=== PATIENT | male | born 1945 | race African-American/Black ===

== ENCOUNTER → 2016-04-15 | Outpatient (CLI) | payer MEDICARE, MEDICAID ==
[2016-04-15 11:21] LABS: ABSOLUTE BASOPHILS # (AUTO) 0.1 10^3/uL (0.0-0.2); ABSOLUTE EOSINOPHILS # (AUTO) 0.4 10^3/uL (0.0-0.6); ABSOLUTE LYMPHOCYTES (AUTO) 1.9 10^3/uL (0.5-4.7); ABSOLUTE MONOCYTES (AUTO) 0.4 10^3/uL (0.1-1.4); ABSOLUTE NEUT (AUTO) 3.4 10^3/uL (1.7-8.2); BASOPHILS % (AUTO) 1.2 % (0-2); EOSINOPHILS % (AUTO) 6.5 % (0-6); HEMATOCRIT 37.8 % (37.9-51.0); HEMOGLOBIN 12.3 g/dL (13.5-17.0); HGB HCT DIFFERENCE -0.9; LYMPHOCYTES % (AUTO) 30.8 % (13-45); MEAN CORPUSCULAR HEMOGLOBIN 22.9 pg (27.0-33.4); MEAN CORPUSCULAR HGB CONC 32.5 g/dL (32.0-36.0); MEAN CORPUSCULAR VOLUME 70 fl (80-97); MONOCYTES % (AUTO) 6.9 % (3-13); RED BLOOD COUNT 5.37 10^6/uL (4.35-5.55); RED CELL DISTRIBUTION WIDTH 15.9 % (11.5-14.0); SEGMENTED NEUTROPHILS % (AUTO) 54.6 % (42-78); WHITE BLOOD COUNT 6.2 10^3/uL (4.0-10.5)
[2016-04-15 11:45] LABS: ALANINE AMINOTRANSFERASE 43 U/L (21-72); ALBUMIN 4.2 g/dL (3.5-5.0); ALKALINE PHOSPHATASE 119 U/L (38-126); ANION GAP 14 (5-19); ASPARTATE AMINO TRANSFERASE 17 U/L (17-59); BILIRUBIN,TOTAL 0.2 mg/dL (0.2-1.3); BLOOD UREA NITROGEN 15 mg/dL (7-20); CARBON DIOXIDE 27 mmol/L (22-30); CHLORIDE 102 mmol/L (98-107); CREATININE RESULT 1.26 mg/dL (0.52-1.25); GLUCOSE 102 mg/dL (75-110); POTASSIUM 4.2 mmol/L (3.6-5.0); SODIUM 143.3 mmol/L (137-145); TOTAL PROTEIN 6.9 g/dL (6.3-8.2)
== END ==
LOC: OD 09:55
PROVIDERS: ATTEND Psychiatry & Neurology Psychiatry
DX: F25.9 Schizoaffective disorder, unspecified (principal)
CPT/HCPCS: 36415; 80053; 85025

== ENCOUNTER → 2016-04-19 | Outpatient (CLI) | payer MEDICARE, MEDICAID ==
[2016-04-19 11:32] LABS: CHOLESTEROL 147.29 mg/dL (0-200); Direct HDL 36 mg/dL (>40); TRIGLYCERIDES 112 mg/dL (<150)
[2016-04-19 11:42] LABS: DIRECT LDL 81 mg/dL (<100)
== END ==
LOC: OD 10:13
PROVIDERS: ATTEND Psychiatry & Neurology Psychiatry
DX: F25.9 Schizoaffective disorder, unspecified (principal); Z79.899 Other long term (current) drug therapy
CPT/HCPCS: 36415; 80061

== ENCOUNTER 2016-04-26 12:14 | Emergency (ER) | payer MEDICARE, MEDICAID ==
--- NOTE | 2016-04-26 12:28 | ER Document Report ---
ED Medical Screen (RME) - General Stated Complaint: FALL/MOUTH LACERATION Mode of Arrival: Ambulatory Information source: Transfer Record Notes: Patient tripped in the parking lot falling hitting his face on the pavement. No loss of consciousness, no nausea or vomiting. Pt with lac to upper inside lip. I have greeted and performed a rapid initial assessment of this patient. A comprehensive ED assessment and evaluation of the patient, analysis of test results and completion of the medical decision making process will be conducted by additional ED providers. TRAVEL OUTSIDE OF THE [place] IN LAST 30 DAYS: No - Related Data Allergies/Adverse Reactions: No Known Allergies Allergy (Verified 04/26/16 12:25) Past Medical History - Past Medical History Cardiac Medical History: Reports: Hx Hypercholesterolemia, Hx Hypertension Comment Only: Hx Atrial Fibrillation - IRREGULAR HEARTBEAT Pulmonary Medical History: Reports: Hx COPD Denies: Hx Tuberculosis - unknown Endocrine Medical History: Reports: Hx Diabetes Mellitus Type 1, Hx Diabetes Mellitus Type 2 Renal/ Medical History: Reports: Hx Benign Prostatic Hyperplasia GI Medical History: Reports: Hx Gastroesophageal Reflux Disease Psychiatric Medical History: Reports: Hx Anxiety, Hx Depression, Hx Personality Disorder - Dependent personality disorder, Hx Schizoaffective Disorder, Hx Schizophrenia - SCHIZOEFFECTIVE Past Surgical History: Reports: Hx Cardiac Surgery - OPEN HEART - Immunizations Immunizations up to date: Yes Hx Diphtheria, Pertussis, Tetanus Vaccination: Yes Physical Exam - Vital signs Vitals: Pulse Resp BP Pulse Ox 91 22 H 135/86 H 98 04/26/16 12:24 04/26/16 12:24 04/26/16 12:24 04/26/16 12:24 - Skin Skin irregularity: Laceration - Inside upper lip Course - Vital Signs Vital signs: Temp Pulse Resp BP Pulse Ox 91 22 H 135/86 H 98 04/26/16 12:24 04/26/16 12:24 04/26/16 12:24 04/26/16 12:24
[2016-04-26] MEDS ORDERED: LIDOCAINE 1% INJ-PF (10 MG/ML) 30 ML SDV INJ ONE (15:11)
--- NOTE | 2016-04-26 16:12 | ER Document Report ---
ED Oral Problem - General Chief Complaint: Lip Injury Stated Complaint: FALL/MOUTH LACERATION Mode of Arrival: Ambulatory Notes: Patient apparently lost his footing and slipped and fell hitting his face in a driveway. He is a resident of a longterm with a diagnosis of schizophrenia. Staff who are here with him say that he was just recently started on a new medication which seems to make him drowsy and less stable than usual on his feet. Patient did not have any loss of consciousness and no new neurologic deficits. Patient is bleeding rather heavily from an apparent cut inside his upper lip. No other apparent injuries. Patient is not able to help provide history. He follows some commands appropriately, but doesn't answer questions intelligibly. TRAVEL OUTSIDE OF THE [place] IN LAST 30 DAYS: No - Related Data Allergies/Adverse Reactions: No Known Allergies Allergy (Verified 04/26/16 12:25) Past Medical History - General Information source: Transfer Record - Social History Smoking Status: Unknown if Ever Smoked Chew tobacco use (# tins/day): No Frequency of alcohol use: None Drug Abuse: None Family History: Reviewed & Not Pertinent Patient has suicidal ideation: No Patient has homicidal ideation: No - Past Medical History Cardiac Medical History: Reports: Hx Hypercholesterolemia, Hx Hypertension Comment Only: Hx Atrial Fibrillation - IRREGULAR HEARTBEAT Pulmonary Medical History: Reports: Hx COPD Denies: Hx Tuberculosis - unknown Endocrine Medical History: Reports: Hx Diabetes Mellitus Type 1, Hx Diabetes Mellitus Type 2 Renal/ Medical History: Reports: Hx Benign Prostatic Hyperplasia GI Medical History: Reports: Hx Gastroesophageal Reflux Disease Psychiatric Medical History: Reports: Hx Anxiety, Hx Depression, Hx Personality Disorder - Dependent personality disorder, Hx Schizoaffective Disorder, Hx Schizophrenia - SCHIZOEFFECTIVE Past Surgical History: Reports: Hx Cardiac Surgery - OPEN HEART - Immunizations Immunizations up to date: Yes Hx Diphtheria, Pertussis, Tetanus Vaccination: Yes Hx Pneumococcal Vaccination: 07/25/12 Review of Systems - Review of Systems -: Yes ROS unobtainable due to patient's medical condition - Patient's verbal skills are not sufficient to provide answers to questions Physical Exam - Vital signs Vitals: Pulse Resp BP Pulse Ox 91 22 H 135/86 H 98 04/26/16 12:24 04/26/16 12:24 04/26/16 12:24 04/26/16 12:24 Interpretation: Normal - Notes Notes: PHYSICAL EXAMINATION: GENERAL: Bleeding rather heavily from his mouth. Vital signs are normal.. HEAD: Atraumatic, normocephalic. ENT: Blood in the oral cavity. Cleaned out as much blood as I could digitally, using 4 x 4 swabs. I was able to find about a 3 cm laceration of the upper medial right lip. This laceration was bleeding rather briskly and appeared to account for all the blood that the patient has been bleeding into his mouth. No other site seen. Pressure was applied while suture tray was set up. Patient is totally edentulous. He has some soft tissue swelling of the right upper lip with some bruising there as well and there possibly could be a hematoma present. He has some superficial abrasions over the external right upper lip, none of which require sutures. NECK: Normal range of motion, supple. LUNGS: Breath sounds clear and equal bilaterally. HEART: Regular rate and rhythm without murmurs. ABDOMEN: Soft, nontender. No guarding or rebound. BACK: No tenderness throughout entire back. EXTREMITIES: Normal range of motion without pain. NEUROLOGICAL: Patient is essentially noncommunicative. I cannot understand anything he says in answer to my questions. Staff does seem to understand some of what he is saying. He does follow commands relatively well. Moving all 4 extremities and does not appear to have any gross neurologic deficits other than his mental status which is due to his psychiatric illness. SKIN: Warm, dry, no rashes. Course - Vital Signs Vital signs: Temp Pulse Resp BP Pulse Ox 97.3 F 96 16 135/93 H 98 04/26/16 17:08 04/26/16 17:08 04/26/16 17:08 04/26/16 17:08 04/26/16 17:08 - Diagnostic Test Radiology reviewed: Image reviewed, Reports reviewed - CT cervical spine report : No gross acute fracture or malalignment. Multilevel significant central and foraminal stenosis Procedures - Laceration/Wound Repair right upper lip Wound length (cm): 3 Wound's Depth, Shape: Into muscle - I don't see any direct evidence that the patient's wound enters to muscle, but in its location, it would not surprise me that there might be some involvement of the orbicularis muscle., Irregular, Contused tissue. No: Flap Laceration pre-procedure: Sterile drapes applied Anesthetic type: 2% Lidocaine Volume Anesthetic (mLs): 4 Wound explored: Clean, No foreign body removed Irrigated w/ Saline (mLs): 200 Wound Debrided: none Suture Size/Type: Vicryl, 4:0 Number of Sutures: 10 Layer Closure?: No Complications: No Notes: 04/26/16 19:31 After being sutured, there was good hemostasis with no active bleeding observed from any portion of the wound. Adult Head Front/Back picture: 1 - Laceration is of the underside of the right upper lip under the right nostril. I do not think it is a through and through laceration. Closed with multiple (10) 4-0 Vicryl sutures Discharge - Discharge Clinical Impression: Laceration of upper lip, complicated Qualifiers: Encounter type: initial encounter Qualified Code(s): S01.511A - Laceration without foreign body of lip, initial encounter Condition: Stable Disposition: HOME, SELF-CARE Additional Instructions: LACERATION CARE: Your laceration has been sutured to keep the skin edges aligned during healing. Please follow the care instructions the doctor has outlined for you and return for further care, according to the schedule you've been given. Keep the wound and dressing clean. Unless you were told otherwise, you may shower daily, blotting the wound dry with a clean, unused towel. At other times, If the dressing gets wet or blood soaked, remove it and blot the wound dry, then reapply a new dressing. Unless you were instructed otherwise, dressings should be changed at least daily. If any signs of infection occur (swelling, redness, drainage, increasing tenderness, red streaks, tender lumps in the armpit or groin above the laceration, or fever), see the doctor immediately. FOLLOW-UP CARE: Your sutures are dissolvable (4-0 Vicryl) so you do not need to return for suture removal. If you have been referred to another physician for follow-up care, call that physicians office for an appointment as you were instructed. If you experience a significant change in your laceration, or if you are concerned there may be an infection (swelling, redness, drainage, increasing tenderness, red streaks, tender lumps in the armpit or groin above the laceration, or fever) , return to the Emergency Department immediately re-evaluation. Watch for signs of infection such as redness, pus drainage, swelling worse than it is now, etc. Return at any time if you're concerned it may be infected. Try to rinse your mouth out with warm water after eating and at bedtime. Try to limit food intake for the next couple days to very soft foods such as soups and ice cream, etc. Referrals: CHARLENE ANDERSON MD [Primary Care Provider] - Follow up as needed
[2016-04-26 17:10] VITALS: BP 135/93
== END 2016-04-26 16:35 | disposition home or self-care (01) ==
LOC: ER 12:14
PROC: 0CQ0XZZ Repair Upper Lip, External Approach (ICD-10-PCS; principal; 2016-04-26)
DX: S01.511A Laceration without foreign body of lip, initial encounter (principal); W19.XXXA Unspecified fall, initial encounter; E78.00 Pure hypercholesterolemia, unspecified
CPT/HCPCS: 99283; 72125; 12013; J3490

== ENCOUNTER → 2016-05-06 | Outpatient (CLI) | payer MEDICARE, MEDICAID ==
[2016-05-06 10:49] LABS: ANION GAP 16 (5-19); BLOOD UREA NITROGEN 17 mg/dL (7-20); CALCIUM 9.1 mg/dL (8.4-10.2); CARBON DIOXIDE 26 mmol/L (22-30); CHLORIDE 102 mmol/L (98-107); CREATININE RESULT 1.17 mg/dL (0.52-1.25); GLUCOSE 107 mg/dL (75-110); POTASSIUM 4.5 mmol/L (3.6-5.0); SODIUM 143.5 mmol/L (137-145)
== END ==
LOC: OD 09:47
PROVIDERS: ATTEND Internal Medicine Nephrology
DX: I10 Essential (primary) hypertension (principal)
CPT/HCPCS: 36415; 80048

== ENCOUNTER → 2016-07-21 | Outpatient (CLI) | payer MEDICARE, MEDICAID | LOC: OD 10:45 | PROVIDERS: ATTEND Urology | DX: R97.20 Elevated prostate specific antigen [PSA] (principal) | CPT/HCPCS: 36415; 84153 ==

== ENCOUNTER 2016-12-14 10:01 | Inpatient (IN) | payer MEDICARE, MEDICAID ==
--- NOTE | 2016-12-14 10:16 | ER Document Report ---
ED Medical Screen (RME) - General Chief Complaint: Altered Mental Status Stated Complaint: ALTERED MENTAL STATUS Time Seen by Provider: 12/14/16 10:13 Notes: Patient is a resident of an extended care facility. He has brought in by staff. Staff states that for the last 24 hours or so patient has been weak and sleeping more than usual. He is also been less talkative. He has been less active. No vomiting or diarrhea. No known fevers. They have noticed that his blood pressure has been lower than normal as well. They also noticed that he has been off balance. TRAVEL OUTSIDE OF THE [place] IN LAST 30 DAYS: No - Related Data Allergies/Adverse Reactions: No Known Allergies Allergy (Verified 12/14/16 10:03) Past Medical History - Past Medical History Cardiac Medical History: Reports: Hx Hypercholesterolemia, Hx Hypertension Comment Only: Hx Atrial Fibrillation - IRREGULAR HEARTBEAT Pulmonary Medical History: Reports: Hx COPD Denies: Hx Tuberculosis - unknown Endocrine Medical History: Reports: Hx Diabetes Mellitus Type 1, Hx Diabetes Mellitus Type 2 Renal/ Medical History: Reports: Hx Benign Prostatic Hyperplasia. Denies: Hx Peritoneal Dialysis GI Medical History: Reports: Hx Gastroesophageal Reflux Disease Psychiatric Medical History: Reports: Hx Anxiety, Hx Depression, Hx Personality Disorder - Dependent personality disorder, Hx Schizoaffective Disorder, Hx Schizophrenia - SCHIZOEFFECTIVE Past Surgical History: Reports: Hx Cardiac Surgery - OPEN HEART - Immunizations Immunizations up to date: Yes Hx Diphtheria, Pertussis, Tetanus Vaccination: Yes Physical Exam - Vital signs Vitals: Temp Pulse Resp BP Pulse Ox 98.5 F 97 20 106/70 93 12/14/16 10:04 12/14/16 10:04 12/14/16 10:04 12/14/16 10:04 12/14/16 10:04 Course - Vital Signs Vital signs: Temp Pulse Resp BP Pulse Ox 98.5 F 97 20 106/70 93 12/14/16 10:04 12/14/16 10:04 12/14/16 10:04 12/14/16 10:04 12/14/16 10:04
[2016-12-14 10:35] LABS: ABSOLUTE EOSINOPHILS # (AUTO) 0.3 10^3/uL (0.0-0.6); ABSOLUTE LYMPHOCYTES (AUTO) 1.1 10^3/uL (0.5-4.7); ABSOLUTE MONOCYTES (AUTO) 0.4 10^3/uL (0.1-1.4); ABSOLUTE NEUT (AUTO) 3.2 10^3/uL (1.7-8.2); BASOPHILS % (AUTO) 0.5 % (0-2); EOSINOPHILS % (AUTO) 5.4 % (0-6); HEMATOCRIT 34.4 % (37.9-51.0); HEMOGLOBIN 11.4 g/dL (13.5-17.0); HGB HCT DIFFERENCE -0.2; LYMPHOCYTES % (AUTO) 22.1 % (13-45); MEAN CORPUSCULAR HEMOGLOBIN 23.3 pg (27.0-33.4); MEAN CORPUSCULAR HGB CONC 33.1 g/dL (32.0-36.0); MEAN CORPUSCULAR VOLUME 70 fl (80-97); MONOCYTES % (AUTO) 8.3 % (3-13); RED BLOOD COUNT 4.88 10^6/uL (4.35-5.55); RED CELL DISTRIBUTION WIDTH 15.3 % (11.5-14.0); SEGMENTED NEUTROPHILS % (AUTO) 63.7 % (42-78); WHITE BLOOD COUNT 5.1 10^3/uL (4.0-10.5)
--- NOTE | 2016-12-14 10:45 | ER Document Report ---
ED General - General Chief Complaint: Altered Mental Status Stated Complaint: ALTERED MENTAL STATUS Time Seen by Provider: 12/14/16 10:13 Mode of Arrival: Wheelchair Information source: Legal Guardian Notes: This is a 71-year-old man with a history of COPD, anemia, hypertension, diabetes , schizoaffective disorder and dementia. The patient is a resident of [facility] and lives in a house with 2 other clients. He receives 24 7 monitoring by the [employer]. He receives his medicines from health providers with the organization. He is brought into the emergency room because of increased lethargy, increased weakness, decreased p.o. intake. The health health care consultant with him today (who is been working with him for the past 9 months ) states he has had all of his medicines except for his blood pressure medicines today. The patient's reported baseline is that he does have dementia , will ambulate to the couch and feed himself. Review of systems. A health health care consultant denies any recent injuries, fevers, episodes of vomiting, diarrhea, or any issues concerning abdominal pain or chest pain. TRAVEL OUTSIDE OF THE [place] IN LAST 30 DAYS: No - HPI Onset: Last week Onset/Duration: Gradual Quality of pain: No pain Associated symptoms: None Exacerbated by: Denies Relieved by: Denies Similar symptoms previously: Yes Recently seen / treated by doctor: No - Related Data Allergies/Adverse Reactions: No Known Allergies Allergy (Verified 12/14/16 10:03) Past Medical History - General Information source: Patient - Social History Smoking Status: Never Smoker Cigarette use (# per day): No Chew tobacco use (# tins/day): No Frequency of alcohol use: None Drug Abuse: None Lives with: Guardian Family History: Reviewed & Not Pertinent Patient has suicidal ideation: No Patient has homicidal ideation: No - Past Medical History Cardiac Medical History: Reports: Hx Hypercholesterolemia, Hx Hypertension Comment Only: Hx Atrial Fibrillation - IRREGULAR HEARTBEAT Pulmonary Medical History: Reports: Hx COPD Denies: Hx Tuberculosis - unknown Endocrine Medical History: Reports: Hx Diabetes Mellitus Type 1, Hx Diabetes Mellitus Type 2 Renal/ Medical History: Reports: Hx Benign Prostatic Hyperplasia. Denies: Hx Peritoneal Dialysis GI Medical History: Reports: Hx Gastroesophageal Reflux Disease Psychiatric Medical History: Reports: Hx Anxiety, Hx Depression, Hx Personality Disorder - Dependent personality disorder, Hx Schizoaffective Disorder, Hx Schizophrenia - SCHIZOEFFECTIVE Past Surgical History: Reports: Hx Cardiac Surgery - OPEN HEART - Immunizations Immunizations up to date: Yes Hx Diphtheria, Pertussis, Tetanus Vaccination: Yes Hx Pneumococcal Vaccination: 07/25/12 Review of Systems - Review of Systems Constitutional: denies: Chills, Fever EENT: No symptoms reported Cardiovascular: No symptoms reported Respiratory: No symptoms reported Gastrointestinal: No symptoms reported Genitourinary: No symptoms reported Male Genitourinary: No symptoms reported Musculoskeletal: No symptoms reported Skin: No symptoms reported Hematologic/Lymphatic: No symptoms reported Neurological/Psychological: See HPI Physical Exam - Vital signs Vitals: Temp Pulse Resp BP Pulse Ox 98.5 F 97 20 106/70 93 12/14/16 10:04 12/14/16 10:04 12/14/16 10:04 12/14/16 10:04 12/14/16 10:04 Notes: Physical exam: GENERAL: Lethargic 71-year-old man, with dementia. It is possible to arouse him and he does acknowledge. HEAD: Atraumatic, normocephalic. EYES: Pupils equal round and reactive to light, extraocular movements intact, sclera anicteric, conjunctiva are normal. ENT: TMs normal, nares patent, oropharynx clear without exudates. Moist mucous membranes. NECK: Normal range of motion, supple without obvious mass or JVD. LUNGS: Breath sounds clear to auscultation bilaterally and equal. No wheezes rales or rhonchi. HEART: Regular rate and rhythm without murmurs, rubs or gallops. ABDOMEN: Soft, normoactive bowel sounds. No tenderness to palpation. No guarding, no rebound. No masses appreciated. EXTREMITIES: Normal range of motion, no pitting or edema. No clubbing or cyanosis. NEUROLOGICAL: Cranial nerves II through XII grossly intact. Normal speech, moving all extremities. PSYCH: Normal mood, normal affect. SKIN: Warm, Dry, normal turgor, no rashes or lesions noted. Course - Vital Signs Vital signs: Temp Pulse Resp BP Pulse Ox 98.5 F 97 17 115/83 96 12/14/16 10:04 12/14/16 10:04 12/14/16 11:01 12/14/16 11:01 12/14/16 11:01 - Laboratory Result Diagrams: 12/14/16 10:22 12/14/16 10:22 Laboratory results interpreted by me: 12/14/16 12/14/16 12/14/16 10:22 10:22 10:22 Hgb 11.4 L Hct 34.4 L MCV 70 L MCH 23.3 L RDW 15.3 H BUN 44 H Creatinine 2.15 H Est GFR ( Amer) 37 L Est GFR (Non-Af Amer) 31 L Glucose 136 H Lactic Acid 2.7 H AST 14 L ALT 16 L Urine Blood 12/14/16 11:20 Hgb Hct MCV MCH RDW BUN Creatinine Est GFR ( Amer) Est GFR (Non-Af Amer) Glucose Lactic Acid AST ALT Urine Blood SMALL H - Diagnostic Test Radiology reviewed: Image reviewed, Reports reviewed - CT of the head shows no acute bleed. Chest x-ray shows no infiltrates or effusions. - EKG Interpretation by Me Rate: Normal Rhythm: NSR - EKG shows normal sinus rhythm with a ventricular rate of 85, Q waves septal which is old. No acute ST elevation or depression Discharge - Discharge Clinical Impression: Acute kidney injury, Dehydration Condition: Stable Disposition: ADMITTED INPATIENT Admitting Provider: Hospitalist - Dr Ortiz Unit Admitted: Medical Floor Referrals: CHARLENE ANDERSON MD [Primary Care Provider] - Follow up as needed
[2016-12-14] MEDS ORDERED: NORMAL SALINE 1000 ML 1,000 ML IV PRN ×3 (10:46→13:16)
--- NOTE | 2016-12-14 10:54 | RADIOLOGY REPORT (SQ) ---
EXAM DESCRIPTION: CT HEAD WITHOUT COMPLETED DATE/TIME: 12/14/2016 10:29 am REASON FOR STUDY: ams COMPARISON: CT brain 08/19/2013, 07/23/2013, 07/19/2012, 09/29/2011 TECHNIQUE: Axial images acquired through the brain without intravenous contrast. Images reviewed wi th bone, brain and subdural windows. Images stored on PACS. All CT scanners at this facility use dose modulation, iterative reconstruction, and/or weight based d osing when appropriate to reduce radiation dose to as low as reasonably achievable (ALARA). [facility]: Dose Right [facility]: CareDose [facility]: Dose Right [facility]: Teradose 4D [facility]: Smart Friendfer RADIATION DOSE: Up-to-date CT equipment and radiation dose reduction techniques were employed. CTDIv ol: 64.6 mGy. DLP: 1163 mGy-cm. mGy. LIMITATIONS: None. FINDINGS: VENTRICLES: Normal size and contour. CEREBRUM: No masses. No acute hemorrhage. No midline shift. No evidence for acute infarction. Old infarct in the right posterior limb internal capsule/posterior basal ganglia axial images 17 and 18. CEREBELLUM: No masses. No hemorrhage. No alteration of density. No evidence for acute infarction. EXTRAAXIAL SPACES: No fluid collections. No masses. ORBITS AND GLOBE: No intra- or extraconal masses. Normal contour of globe without masses. CALVARIUM: No fracture. PARANASAL SINUSES: No fluid or mucosal thickening. SOFT TISSUES: No mass or hematoma. 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 No acute findings COMMENT: Quality ID # [id number]: Final reports with documentation of one or more dose reduction techniques (e.g., Automated exposure control, adjustment of the mA and/or kV according to patient size, use of iterative reconstruction technique) TECHNICAL DOCUMENTATION: JOB ID: [id number] [employer]- All Rights Reserved
[2016-12-14 10:55] LABS: ALANINE AMINOTRANSFERASE 16 U/L (21-72); ALBUMIN 3.9 g/dL (3.5-5.0); ALKALINE PHOSPHATASE 118 U/L (38-126); ANION GAP 14 (5-19); ASPARTATE AMINO TRANSFERASE 14 U/L (17-59); BILIRUBIN,DIRECT 0.4 mg/dL (0.0-0.4); BILIRUBIN,TOTAL 0.5 mg/dL (0.2-1.3); BLOOD UREA NITROGEN 44 mg/dL (7-20); CALCIUM 8.4 mg/dL (8.4-10.2); CARBON DIOXIDE 27 mmol/L (22-30); CHLORIDE 98 mmol/L (98-107); CREATININE RESULT 2.15 mg/dL (0.52-1.25); GLUCOSE 136 mg/dL (75-110); POTASSIUM 3.8 mmol/L (3.6-5.0); SODIUM 138.8 mmol/L (137-145); TOTAL PROTEIN 6.4 g/dL (6.3-8.2)
--- NOTE | 2016-12-14 10:58 | RADIOLOGY REPORT (SQ) ---
EXAM DESCRIPTION: CHEST SINGLE VIEW COMPLETED DATE/TIME: 12/14/2016 10:37 am REASON FOR STUDY: ams COMPARISON: AP chest 07/05/2014, 11/11/2013 EXAM PARAMETERS: NUMBER OF VIEWS: One view. TECHNIQUE: Single frontal radiographic view of the chest acquired. RADIATION DOSE: NA LIMITATIONS: None. FINDINGS: LUNGS AND PLEURA: Low lung volumes. Increased interstitial markings at the bases likely a ccentuated normal markings from expiratory film. No dense consolidation worrisome for pneumonia. No pleural effusions. No pneumothorax. MEDIASTINUM AND HILAR STRUCTURES: No masses. Contour normal. HEART AND VASCULAR STRUCTURES: Heart normal in size. Normal vasculature. BONES: No acute findings. HARDWARE: Old sternotomy OTHER: No other significant finding. IMPRESSION: Low lung volumes. No definite acute findings TECHNICAL DOCUMENTATION: JOB ID: [id number]
[2016-12-14 11:16] LABS: VENOUS BLOOD BASE EXCESS 2.4 mmol/L; VENOUS BLOOD HCO3 28.2 mmol/L (20-32); VENOUS BLOOD PCO2 48.8 mmHg (35-63); VENOUS BLOOD PH 7.38 (7.30-7.42)
[2016-12-14 11:31] LABS: PROTHROMBIN TIME 13.7 SEC (11.4-15.4)
[2016-12-14 11:44] LABS: APPEARANCE,URINE CLEAR; BILIRUBIN,URINE NEGATIVE (NEGATIVE); GLUCOSE, URINE NEGATIVE (NEGATIVE); KETONES,URINE NEGATIVE (NEGATIVE); LEUKOCYTE ESTERASE,URINE NEGATIVE (NEGATIVE); NITRITE,URINE NEGATIVE (NEGATIVE); PROTEIN,URINE NEGATIVE (NEGATIVE); URINE SPECIFIC GRAVITY 1.006; UROBILINOGEN,URINE NEGATIVE mg/dL (<2.0)
--- NOTE | 2016-12-14 13:09 | PDOC H&P ---
History of Present Illness Admission Date/PCP: 12/14/16 12:22 CHARLENE ANDERSON MD Patient complains of: Caregiver states that pt has weak History of Present Illness: CRISTIAN HAM is a 71 year old male who presents to the hospital with complaint of weakness and sleeping more. Pt's caregiver states that he normal gets up and feeds himself. Caregiver states that pt has dementia and his mental function fluctuates. Pt states that he wants to know if he is staying or going home. Caregiver states that pt has been coughing and vomited once. Caregiver states that pt's vomit was described as mucus appearing. Past Medical History Cardiac Medical History: Reports: Hyperlipidema, Hypertension Comment Only: Atrial Fibrillation - IRREGULAR HEARTBEAT Pulmonary Medical History: Reports: Chronic Obstructive Pulmonary Disease (COPD) Denies: Tuberculosis - unknown Endocrine Medical History: Reports: Diabetes Mellitus Type 1, Diabetes Mellitus Type 2 GI Medical History: Reports: Gastroesophageal Reflux Disease Psychiatric Medical History: Reports: Depression, Personality Disorder - Dependent personality disorder, Schizoaffective Disorder Hematology: Reports: Anemia Social History Lives with: Guardian Smoking Status: Never Smoker Frequency of Alcohol Use: None Hx Recreational Drug Use: No Hx Prescription Drug Abuse: No Family History Family History: Reviewed & Not Pertinent Parental Family History Reviewed: Yes Children Family History Reviewed: Yes Sibling(s) Family History Reviewed.: Yes Medication/Allergy Allergies/Adverse Reactions: No Known Allergies Allergy (Verified 12/14/16 10:03) Review of Systems ROS unobtainable: Due to mental status, Other - Pt has dementia. Denies chest pain, shortness of breath, or nausea. Physical Exam Vital Signs: Temp Pulse Resp BP Pulse Ox 98.9 F 97 18 116/82 95 12/14/16 12:00 12/14/16 10:04 12/14/16 12:01 12/14/16 12:00 12/14/16 12:01 General appearance: PRESENT: no acute distress, well-developed, well-nourished Head exam: PRESENT: atraumatic, normocephalic Eye exam: PRESENT: conjunctiva pink, EOMI. ABSENT: scleral icterus Ear exam: PRESENT: normal external ear exam Mouth exam: PRESENT: moist, tongue midline Neck exam: ABSENT: carotid bruit, JVD, lymphadenopathy, thyromegaly Respiratory exam: PRESENT: clear to auscultation daxa. ABSENT: rales, rhonchi, wheezes Cardiovascular exam: PRESENT: RRR, systolic murmur. ABSENT: diastolic murmur, rubs Pulses: PRESENT: normal dorsalis pedis pul Vascular exam: PRESENT: normal capillary refill GI/Abdominal exam: PRESENT: normal bowel sounds, soft. ABSENT: distended, guarding, mass, organolmegaly, rebound, tenderness Rectal exam: PRESENT: deferred Extremities exam: PRESENT: full ROM. ABSENT: calf tenderness, clubbing, pedal edema Neurological exam: PRESENT: alert, awake, oriented to person, CN II-XII grossly intact. ABSENT: motor sensory deficit Psychiatric exam: PRESENT: appropriate affect, normal mood. ABSENT: homicidal ideation, suicidal ideation Skin exam: PRESENT: dry, intact, warm. ABSENT: cyanosis, rash Results Impressions: Chest X-Ray 12/14/16 10:14 IMPRESSION: Low lung volumes. 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 No acute findings Assessment & Plan - Diagnosis (1) Acute kidney injury superimposed on chronic kidney disease Is this a current diagnosis for this admission?: Yes Plan: in setting of CKD 2: Will give IVF and avoid Renal toxic medications. Will check BMP in am (2) Dehydration Is this a current diagnosis for this admission?: Yes Plan: Will give IVF. (3) Acute metabolic encephalopathy Is this a current diagnosis for this admission?: Yes Plan: in setting of Dementia: Will monitor. (4) Debility Is this a current diagnosis for this admission?: Yes Plan: PT/OT evaluation (5) Schizo-affective schizophrenia, chronic condition Is this a current diagnosis for this admission?: Yes Plan: Awaiting home med list. (6) DVT prophylaxis Is this a current diagnosis for this admission?: Yes Plan: SCDs - Time Time Spent: 30 to 50 Minutes
[2016-12-14] MEDS ORDERED: GLUCAGON,HUMAN RECOMB 1 MG INJ IM PRN (16:32)
[2016-12-14] MEDS ORDERED: DEXTROSE 50%-WATER 25 GM/50 ML DISP.SYRIN IV PRN ×2 (16:32)
[2016-12-14] MEDS ORDERED: INSULIN LISPRO 100 UNIT/ML 3 ML VIAL SUBCUT PRN (16:32)
[2016-12-14] MEDS ORDERED: DEXTROSE 40% GEL 15 GM TUBE PO PRN ×2 (16:32)
[2016-12-14] MEDS ORDERED: ACETAMINOPHEN 325 MG TABLET PO PRN (17:56)
[2016-12-14] MEDS ORDERED: (PENDING PHARMACY ID) (Hydralazine Hcl [Hydralazine Hcl] 100 MG) PO PRN (17:56)
[2016-12-14] MEDS ORDERED: HALOPERIDOL LACTATE INJ 5 MG/1 ML VIAL IV PRN (18:00)
[2016-12-14] MEDS ORDERED: (PENDING PHARMACY ID) (Clonidine Hcl [Catapres 0.3 Mg Tablet] 0.3 MG) PO SCH (18:00)
[2016-12-14] MEDS ORDERED: (PENDING PHARMACY ID) (Lamotrigine [Lamictal] 150 MG) PO SCH (18:00)
[2016-12-14] MEDS ORDERED: (PENDING PHARMACY ID) (Lamotrigine [Lamictal] 25 MG) PO SCH (18:00)
[2016-12-14] MEDS ORDERED: OLANZAPINE 15 MG PO SCH (18:00)
[2016-12-14] MEDS ORDERED: DIPHENHYDRAMINE HCL 25 MG PEG SCH (18:00)
[2016-12-14] MEDS ORDERED: (PENDING PHARMACY ID) (Lorazepam [Lorazepam] 2 MG) PO SCH (18:00)
[2016-12-14] MEDS ORDERED: (PENDING PHARMACY ID) (Haloperidol [Haloperidol] 10 MG) PO SCH (18:00)
[2016-12-14] MEDS ORDERED: (PENDING PHARMACY ID) (Nifedipine [Nifedipine Er] 90 MG) PO SCH (18:00)
[2016-12-14] MEDS ORDERED: HYDRALAZINE HCL 50 MG TABLET PO PRN (18:13)
[2016-12-14] MEDS: BENZTROPINE MESYLATE 1 MG TABLET PO SCH (19:11)
--- NOTE | 2016-12-14 19:53 | EKG REPORT ---
SEVERITY:- ABNORMAL ECG - SINUS RHYTHM PROBABLE LEFT ATRIAL ABNORMALITY CONSIDER ANTEROSEPTAL INFARCT BORDERLINE T WAVE ABNORMALITIES : Confirmed by: Bernardo Phelan MD 14-Dec-2016 19:52:38
[2016-12-14] MEDS ORDERED: CLONIDINE HCL 0.1 MG TABLET PO ONE (20:00)
[2016-12-14] MEDS ORDERED: LORAZEPAM 1 MG TABLET PO ONE (20:00)
[2016-12-14] MEDS ORDERED: HALOPERIDOL 5 MG TABLET PO ONE (20:00)
[2016-12-14] MEDS ORDERED: DOXEPIN HCL 25 MG CAPSULE PO SCH (22:00)
[2016-12-14] MEDS ORDERED: (PENDING PHARMACY ID) (Doxepin Hcl [Doxepin Hcl] 100 MG) PO SCH (22:00)
[2016-12-14] MEDS ORDERED: (PENDING PHARMACY ID) (Melatonin [Melatonin] 10 MG) PO SCH (22:00)
[2016-12-14] MEDS: DIPHENHYDRAMINE HCL 25 MG CAPSULE PO SCH (23:04)
[2016-12-14] MEDS: OLANZAPINE 5 MG TABLET PO SCH (23:05)
[2016-12-14] MEDS: LAMOTRIGINE 25 MG TAB.CHEW PO SCH (23:06)
[2016-12-14] MEDS: LAMOTRIGINE 100 MG TABLET PO SCH (23:06)
[2016-12-14] MEDS: NIFEDIPINE 30 MG TAB.ER.24 PO SCH (23:06)
[2016-12-15 05:27] LABS: ABSOLUTE EOSINOPHILS # (AUTO) 0.3 10^3/uL (0.0-0.6); ABSOLUTE LYMPHOCYTES (AUTO) 1.2 10^3/uL (0.5-4.7); ABSOLUTE MONOCYTES (AUTO) 0.4 10^3/uL (0.1-1.4); ABSOLUTE NEUT (AUTO) 2.3 10^3/uL (1.7-8.2); BASOPHILS % (AUTO) 0.9 % (0-2); EOSINOPHILS % (AUTO) 7.6 % (0-6); HEMATOCRIT 30.7 % (37.9-51.0); HEMOGLOBIN 10.1 g/dL (13.5-17.0); HGB HCT DIFFERENCE -0.4; LYMPHOCYTES % (AUTO) 27.5 % (13-45); MEAN CORPUSCULAR HEMOGLOBIN 23.3 pg (27.0-33.4); MEAN CORPUSCULAR HGB CONC 32.8 g/dL (32.0-36.0); MEAN CORPUSCULAR VOLUME 71 fl (80-97); MONOCYTES % (AUTO) 9.5 % (3-13); RED BLOOD COUNT 4.33 10^6/uL (4.35-5.55); RED CELL DISTRIBUTION WIDTH 15.4 % (11.5-14.0); SEGMENTED NEUTROPHILS % (AUTO) 54.5 % (42-78); WHITE BLOOD COUNT 4.2 10^3/uL (4.0-10.5)
[2016-12-15 05:38] LABS: ANION GAP 9 (5-19); BLOOD UREA NITROGEN 27 mg/dL (7-20); CALCIUM 8.4 mg/dL (8.4-10.2); CARBON DIOXIDE 28 mmol/L (22-30); CHLORIDE 107 mmol/L (98-107); CREATININE RESULT 1.31 mg/dL (0.52-1.25); GLUCOSE 97 mg/dL (75-110); SODIUM 144.2 mmol/L (137-145)
[2016-12-15] MEDS ORDERED: CLONIDINE HCL 0.1 MG TABLET PO SCH (06:00)
[2016-12-15] MEDS ORDERED: HALOPERIDOL 5 MG TABLET PO SCH (06:00)
[2016-12-15] MEDS ORDERED: LORAZEPAM 1 MG TABLET PO SCH (06:00)
[2016-12-15 06:07] LABS: THYROID STIMULATING HORMONE 4.8 uIU/mL (0.47-4.68)
[2016-12-15] MEDS: OLANZAPINE 5 MG TABLET PO SCH (06:26)
[2016-12-15 08:23] VITALS: BP 161/94
--- NOTE | 2016-12-15 09:50 | PDOC DISCHARGE SUMMARY ---
General - Admit/Disc Date/PCP Admission Date/Primary Care Provider: 12/14/16 13:09 CHARLENE ANDERSON MD Discharge Date: 12/15/16 - Discharge Diagnosis (1) Acute kidney injury superimposed on chronic kidney disease Is this a current diagnosis for this admission?: Yes Summary: Secondary to dehydration: Patient was admitted to the hospital where he received IV fluids. Patient's valsartan and Lasix were discontinued. Patient' s creatinine at time of admission was 2.12 at time of discharge creatinine was 1.3. Patient was started back on Valsartan and told to discontinue Lasix. (2) Dehydration Is this a current diagnosis for this admission?: Yes Summary: Pt was given IVFs. (3) Acute metabolic encephalopathy Is this a current diagnosis for this admission?: Yes Summary: Resolved. (4) Debility Is this a current diagnosis for this admission?: Yes Summary: Pt ambulating around room. (5) Schizo-affective schizophrenia, chronic condition Is this a current diagnosis for this admission?: Yes Summary: Continue home medications - Additional Information Resuscitation Status: Full Code Discharge Diet: Cardiac, Diabetic Discharge Activity: Activity As Tolerated Home Medications: Acetaminophen [Tylenol 325 mg Tablet] 325 mg PO Q4HP PRN 12/14/16 Aspirin [Aspirin EC] 81 mg PO DAILY 12/14/16 Benztropine Mesylate [Cogentin 1 mg Tablet] 1 mg PO TID 12/14/16 Cholecalciferol (Vitamin D3) [Vitamin D3 1000 Unit Tablet] 1,000 unit PO DAILY 12/14/16 Clonidine HCl [Catapres 0.3 mg Tablet] 0.3 mg PO TID 12/14/16 Diphenhydramine HCl [Banophen] 25 mg PEG QID 12/14/16 Docusate Sodium [Colace 100 mg Capsule] 100 mg PO DAILY 12/14/16 Doxepin HCl 100 mg PO QHS 12/14/16 Glycerin/Witch Aditi Maceo [Tucks Medicated Pads] 1 pad TOP DAILY 12/14/16 Guaifenesin [Tussin] 5 ml PEG Q6HP PRN 12/14/16 Haloperidol 10 mg PO TID 12/14/16 Hydralazine HCl 100 mg PO TIDP PRN 12/14/16 Lamotrigine [Lamictal] 25 mg PO BID 12/14/16 Lamotrigine [Lamictal] 150 mg PO BID 12/14/16 Loperamide HCl [Imodium 2 mg Capsule] 2 mg PEG DAILYP PRN 12/14/16 Loratadine [Claritin 10 mg Tablet] 10 mg PO DAILY 12/14/16 Lorazepam 2 mg PO TID 12/14/16 Magnesium Hydroxide [Milk of Magnesia 30 ml Udcup] 30 ml PEG HSP PRN 12/14/16 Melatonin 10 mg PO QHS 12/14/16 Metformin HCl [Glucophage 500 mg Tablet] 500 mg PO DAILY 12/14/16 Multivitamin [Tab-A-Laura] 1 tab PO DAILY 12/14/16 Mylanta Suspension 30 ml PEG Q6HP PRN 12/14/16 Neomy Sulf/Bacitrac Zn/Poly [Neosporin Ointment 15 gm] 1 applic TOP DAILYP PRN 12/14/16 Nifedipine [Nifedipine ER] 90 mg PO BID 12/14/16 Olanzapine [Zyprexa] 15 mg PO TID 12/14/16 Omeprazole 20 mg PO DAILY 12/14/16 Polyethylene Glycol 3350 [Miralax Powder 17 gm/Packet] 1 packet PO DAILY Tamsulosin HCl [Flomax 0.4 mg Cap.sr] 0.4 mg PO DAILY 12/14/16 Valsartan [Diovan 160 mg Tablet] 160 mg PO QPM 12/14/16 History of Present Illness History of Present Illness: CRISTIAN HAM is a 71 year old male who presents to the hospital with complaint of weakness and sleeping more. Pt's caregiver states that he normal gets up and feeds himself. Caregiver states that pt has dementia and his mental function fluctuates. Pt states that he wants to know if he is staying or going home. Caregiver states that pt has been coughing and vomited once. Caregiver states that pt's vomit was described as mucus appearing. Hospital Course Hospital Course: Patient is a 71-year-old gentleman who presented to our facility with concern for weakness and altered mental status. Patient at time of my encounter appear to be at his baseline he was answering questions. Patient was noted to have a creatinine of 2.12 and BUN of 44. Pt was given IV fluids for volume expansion. Patient's valsartan and Lasix were discontinued. On subsequent morning patient's creatinine was 1.3 and patient was eating and drinking. Patient was sitting up on side of bed talking to nursing staff. Patient was instructed to not take Lasix. Patient was restarted on valsartan. Patient's clinical presentation appears to be more consistent with dehydration secondary to diuretics. Physical Exam Vital Signs: Temp Pulse Resp BP Pulse Ox 97.7 F 94 18 161/94 H 98 12/15/16 08:10 12/15/16 08:10 12/15/16 08:10 12/15/16 08:10 12/15/16 08:10 Intake & Output 12/14/16 12/15/16 12/16/16 06:59 06:59 06:59 Intake Total 1710 Output Total 600 Balance 1110 Weight 86.1 kg General appearance: PRESENT: no acute distress, well-developed, well-nourished Head exam: PRESENT: atraumatic, normocephalic Eye exam: PRESENT: conjunctiva pink, EOMI, PERRLA. ABSENT: scleral icterus Ear exam: PRESENT: normal external ear exam Mouth exam: PRESENT: moist, tongue midline Neck exam: ABSENT: carotid bruit, JVD, lymphadenopathy, thyromegaly Respiratory exam: PRESENT: clear to auscultation daxa. ABSENT: rales, rhonchi, wheezes Cardiovascular exam: PRESENT: RRR. ABSENT: diastolic murmur, rubs, systolic murmur Pulses: PRESENT: normal dorsalis pedis pul Vascular exam: PRESENT: normal capillary refill GI/Abdominal exam: PRESENT: normal bowel sounds, soft. ABSENT: distended, guarding, mass, organolmegaly, rebound, tenderness Rectal exam: PRESENT: deferred Extremities exam: PRESENT: full ROM. ABSENT: calf tenderness, clubbing, pedal edema Neurological exam: PRESENT: alert, awake, oriented to person, CN II-XII grossly intact Psychiatric exam: PRESENT: agitated Skin exam: PRESENT: dry, intact, warm. ABSENT: cyanosis, rash Results Laboratory Results: 12/15/16 04:59 12/15/16 04:59 12/14/16 12/15/16 12/15/16 13:39 04:59 04:59 WBC 4.2 RBC 4.33 L Hgb 10.1 L Hct 30.7 L MCV 71 L MCH 23.3 L MCHC 32.8 RDW 15.4 H Plt Count 192 Seg Neutrophils % 54.5 Lymphocytes % 27.5 Monocytes % 9.5 Eosinophils % 7.6 H Basophils % 0.9 Absolute Neutrophils 2.3 Absolute Lymphocytes 1.2 Absolute Monocytes 0.4 Absolute Eosinophils 0.3 Absolute Basophils 0.0 Sodium 144.2 Potassium 4.0 Chloride 107 Carbon Dioxide 28 Anion Gap 9 BUN 27 H Creatinine 1.31 H Est GFR ( Amer) > 60 Est GFR (Non-Af Amer) 54 L Glucose 97 Lactic Acid 1.4 Calcium 8.4 TSH Free T4 12/15/16 04:59 WBC RBC Hgb Hct MCV MCH MCHC RDW Plt Count Seg Neutrophils % Lymphocytes % Monocytes % Eosinophils % Basophils % Absolute Neutrophils Absolute Lymphocytes Absolute Monocytes Absolute Eosinophils Absolute Basophils Sodium Potassium Chloride Carbon Dioxide Anion Gap BUN Creatinine Est GFR ( Amer) Est GFR (Non-Af Amer) Glucose Lactic Acid Calcium TSH 4.80 H Free T4 1.25 Impressions: Chest X-Ray 12/14/16 10:14 IMPRESSION: Low lung volumes. 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 No acute findings Qualifiers PATEINT BEING DISCHARGED WITH ANY OF THE FOLLOWING DIAGNOSIS?: No Plan Time Spent: Less than 30 Minutes
[2016-12-15] MEDS ORDERED: TAMSULOSIN HCL 0.4 MG CAP.SR.24H PO SCH (10:00)
[2016-12-15] MEDS ORDERED: [UNRECOGNIZED DRUG - OTHER] TOP SCH (10:00)
[2016-12-15] MEDS ORDERED: LANSOPRAZOLE 30 MG TAB.RAP.DR PO SCH (10:00)
[2016-12-15] MEDS ORDERED: ASPIRIN 81 MG TABLET, ENT COATED PO SCH (10:00)
[2016-12-15] MEDS ORDERED: LORATADINE 10 MG TABLET PO SCH (10:00)
[2016-12-15] MEDS ORDERED: DOCUSATE SODIUM 100 MG CAPSULE PO SCH (10:00)
[2016-12-15] MEDS ORDERED: GLYCERIN TOP SCH (10:00)
[2016-12-15] MEDS: BENZTROPINE MESYLATE 1 MG TABLET PO SCH (11:11)
[2016-12-15] MEDS: NIFEDIPINE 30 MG TAB.ER.24 PO SCH (11:12)
[2016-12-15] MEDS: DIPHENHYDRAMINE HCL 25 MG CAPSULE PO SCH (11:14)
[2016-12-15] MEDS: LAMOTRIGINE 100 MG TABLET PO SCH (11:17)
[2016-12-15] MEDS: LAMOTRIGINE 25 MG TAB.CHEW PO SCH (11:18)
== END 2016-12-15 12:45 | disposition home or self-care (01) | DRG 682 ==
LOC: ER 10:01 → EH 12:22 → UNDOADMIN 12:22 → EH 13:09 → 4N 14:04
DX: N17.9 Acute kidney failure, unspecified (principal); G93.41 Metabolic encephalopathy; I12.9 Hypertensive chronic kidney disease with stage 1 through stage 4 chronic kidney disease, or unspecified chronic kidney disease; N18.2 Chronic kidney disease, stage 2 (mild); E86.0 Dehydration; F25.9 Schizoaffective disorder, unspecified; E78.5 Hyperlipidemia, unspecified; I48.91 Unspecified atrial fibrillation; J44.9 Chronic obstructive pulmonary disease, unspecified; K21.9 Gastro-esophageal reflux disease without esophagitis; F32.9 Major depressive disorder, single episode, unspecified; E11.22 Type 2 diabetes mellitus with diabetic chronic kidney disease; F03.90 Unspecified dementia, unspecified severity, without behavioral disturbance, psychotic disturbance, mood disturbance, and anxiety; D63.1 Anemia in chronic kidney disease; N40.0 Benign prostatic hyperplasia without lower urinary tract symptoms; F41.9 Anxiety disorder, unspecified; Z79.899 Other long term (current) drug therapy
CPT/HCPCS: 36415; 51701; 70450; 71010; 80048; 80053; 81001; 82803; 82962; 83605; 84439; 84443; 84484; 85025; 85610; 87040; 93005; 93010; 99285; J1630; J3490; J7030

== ENCOUNTER → 2016-12-23 | Outpatient (CLI) | payer MEDICARE, MEDICAID ==
--- NOTE | 2016-12-23 13:05 | RADIOLOGY REPORT (SQ) ---
EXAM DESCRIPTION: KUB COMPLETED DATE/TIME: 12/23/2016 11:31 am REASON FOR STUDY: SLOW TRANSIT CONSTIPATION K59.01 SLOW TRANSIT CONSTIPATION COMPARISON: None. NUMBER OF VIEWS: One view. TECHNIQUE: Supine radiographic image of the abdomen acquired. LIMITATIONS: None. FINDINGS: BOWEL GAS PATTERN: Normal gas pattern. There is no evidence of bowel obstruction. There is considerable stool in the ascending colon and in the sigmoid colon. CALCIFICATIONS: No suspicious calcifications. SOFT TISSUES: No gross mass or suggestion of organomegaly. HARDWARE: None in the abdomen. BONES: No acute fracture. No worrisome bone lesions. OTHER: No other significant finding. IMPRESSION: Considerable stool is present. TECHNICAL DOCUMENTATION: JOB ID: [id number] [employer]- All Rights Reserved
== END ==
LOC: OD 11:02
PROVIDERS: ATTEND Physician Assistant Surgical
DX: K59.01 Slow transit constipation (principal)
CPT/HCPCS: 74000

== ENCOUNTER 2016-12-29 09:53 | Inpatient (IN) | payer MEDICARE, MEDICAID ==
--- NOTE | 2016-12-29 10:26 | ER Document Report ---
ED Medical Screen (RME) - General Chief Complaint: Altered Mental Status Stated Complaint: ALTERED MENTAL STATUS Time Seen by Provider: 12/29/16 10:15 Notes: Patient resides at a extended care facility. He has brought in by staff for worsening confusion and trouble breathing. Apparently patient fell down some steps 2 days ago. According to staff he was seen at an urgent care and x-ray of the shoulder showed a coracoid fracture. No CT scan was done. Patient has had a nonproductive cough as well per staff with labored breathing. Patient is not able to significantly add to history. TRAVEL OUTSIDE OF THE [place] IN LAST 30 DAYS: No - Related Data Allergies/Adverse Reactions: No Known Allergies Allergy (Verified 12/29/16 10:20) Past Medical History - Past Medical History Cardiac Medical History: Reports: Hx Hypercholesterolemia, Hx Hypertension Comment Only: Hx Atrial Fibrillation - IRREGULAR HEARTBEAT Pulmonary Medical History: Reports: Hx COPD Denies: Hx Tuberculosis - unknown Endocrine Medical History: Reports: Hx Diabetes Mellitus Type 1, Hx Diabetes Mellitus Type 2 Renal/ Medical History: Reports: Hx Benign Prostatic Hyperplasia. Denies: Hx Peritoneal Dialysis GI Medical History: Reports: Hx Gastroesophageal Reflux Disease Psychiatric Medical History: Reports: Hx Anxiety, Hx Depression, Hx Personality Disorder - Dependent personality disorder, Hx Schizoaffective Disorder, Hx Schizophrenia - SCHIZOEFFECTIVE Past Surgical History: Reports: Hx Cardiac Surgery - OPEN HEART - Immunizations Immunizations up to date: Yes Hx Diphtheria, Pertussis, Tetanus Vaccination: Yes Physical Exam - Vital signs Vitals: Temp Pulse Resp BP Pulse Ox 98.9 F 115 H 20 137/80 H 98 12/29/16 10:01 12/29/16 10:01 12/29/16 10:01 12/29/16 10:01 12/29/16 10:01 Course - Vital Signs Vital signs: Temp Pulse Resp BP Pulse Ox 98.9 F 115 H 20 137/80 H 98 12/29/16 10:01 12/29/16 10:01 12/29/16 10:01 12/29/16 10:01 12/29/16 10:01
[2016-12-29 11:18] LABS: HEMATOCRIT 32.2 % (37.9-51.0); HEMOGLOBIN 10.6 g/dL (13.5-17.0); HGB HCT DIFFERENCE -0.4; MEAN CORPUSCULAR HEMOGLOBIN 22.6 pg (27.0-33.4); MEAN CORPUSCULAR HGB CONC 32.8 g/dL (32.0-36.0); MEAN CORPUSCULAR VOLUME 69 fl (80-97); RED BLOOD COUNT 4.67 10^6/uL (4.35-5.55); WHITE BLOOD COUNT 20.3 10^3/uL (4.0-10.5)
[2016-12-29 11:20] LABS: VENOUS BLOOD BASE EXCESS -0.5 mmol/L; VENOUS BLOOD HCO3 23.8 mmol/L (20-32); VENOUS BLOOD PH 7.42 (7.30-7.42)
[2016-12-29 11:33] LABS: ALANINE AMINOTRANSFERASE 31 U/L (21-72); ALBUMIN 4.2 g/dL (3.5-5.0); ALKALINE PHOSPHATASE 130 U/L (38-126); ANION GAP 18 (5-19); ASPARTATE AMINO TRANSFERASE 18 U/L (17-59); BILIRUBIN,DIRECT 0.5 mg/dL (0.0-0.4); BILIRUBIN,TOTAL 0.9 mg/dL (0.2-1.3); BLOOD UREA NITROGEN 19 mg/dL (7-20); CALCIUM 9.3 mg/dL (8.4-10.2); CARBON DIOXIDE 23 mmol/L (22-30); CHLORIDE 95 mmol/L (98-107); CREATININE RESULT 0.95 mg/dL (0.52-1.25); GLUCOSE 132 mg/dL (75-110); SODIUM 135.5 mmol/L (137-145); TOTAL PROTEIN 7.4 g/dL (6.3-8.2)
[2016-12-29 11:47] LABS: ANISOCYTOSIS SLIGHT; BASOPHILS % (MANUAL) 0 % (0-2); EOSINOPHILS % (MANUAL) 0 % (0-6); LYMPHOCYTES % (MANUAL) 2 % (13-45); MICROCYTOSIS 2+; TOTAL CELLS COUNTED 100
[2016-12-29 11:50] LABS: HYPOCHROMASIA 2+; POIKILOCYTOSIS SLIGHT; POLYCHROMASIA SLIGHT; TARGET CELLS 2+; TEAR DROP CELLS SLIGHT
[2016-12-29 11:51] LABS: OVALOCYTES SLIGHT
[2016-12-29 11:52] LABS: PLATELET CLUMPS PRESENT
--- NOTE | 2016-12-29 12:20 | ER Document Report ---
ED General - General TRAVEL OUTSIDE OF THE [place] IN LAST 30 DAYS: No - HPI Associated symptoms: Other - see above <RAFA GHOSH - Last Filed: 12/29/16 13:01> <NIXON ELAINE - Last Filed: 12/29/16 16:52> - General Chief Complaint: Altered Mental Status Stated Complaint: ALTERED MENTAL STATUS Time Seen by Provider: 12/29/16 10:15 Notes: Patient is a 71 year old male who presents with his caregiver with complaints of AMS, weakness, nausea, vomiting and injuries from a fall. Patient is reported to have fallen on Monday over a chair while sitting down and fell down the stairs outside hitting his head. Patient has been vomiting yellow and has continued to worsen. He continues to have more difficulty with ambulation. (RAFA GHOSH) - Related Data Allergies/Adverse Reactions: No Known Allergies Allergy (Verified 12/29/16 10:40) Past Medical History - General Information source: Patient - Social History Smoking Status: Unknown if Ever Smoked Family History: Reviewed & Not Pertinent Patient has suicidal ideation: No Patient has homicidal ideation: No - Past Medical History Cardiac Medical History: Reports: Hx Hypercholesterolemia, Hx Hypertension Comment Only: Hx Atrial Fibrillation - IRREGULAR HEARTBEAT Pulmonary Medical History: Reports: Hx COPD Denies: Hx Tuberculosis - unknown Endocrine Medical History: Reports: Hx Diabetes Mellitus Type 1, Hx Diabetes Mellitus Type 2 Renal/ Medical History: Reports: Hx Benign Prostatic Hyperplasia. Denies: Hx Peritoneal Dialysis GI Medical History: Reports: Hx Gastroesophageal Reflux Disease Psychiatric Medical History: Reports: Hx Anxiety, Hx Depression, Hx Personality Disorder - Dependent personality disorder, Hx Schizoaffective Disorder, Hx Schizophrenia - SCHIZOEFFECTIVE Past Surgical History: Reports: Hx Cardiac Surgery - OPEN HEART - Immunizations Immunizations up to date: Yes Hx Diphtheria, Pertussis, Tetanus Vaccination: Yes Hx Pneumococcal Vaccination: 07/25/12 <RAFA GHOSH - Last Filed: 12/29/16 13:01> Review of Systems - Review of Systems -: Yes ROS unobtainable due to patient's medical condition Constitutional: No symptoms reported EENT: No symptoms reported Cardiovascular: No symptoms reported Respiratory: No symptoms reported Gastrointestinal: No symptoms reported Genitourinary: No symptoms reported Male Genitourinary: No symptoms reported Musculoskeletal: No symptoms reported Skin: No symptoms reported Hematologic/Lymphatic: No symptoms reported Neurological/Psychological: No symptoms reported <RAFA GHOSH - Last Filed: 12/29/16 13:01> Physical Exam - General General appearance: Alert - HEENT Head: Normocephalic, Atraumatic Eyes: Normal Extraocular movements intact: Yes Pupils: PERRL Mucous membranes: Dry - Respiratory Respiratory status: No respiratory distress Breath sounds: Decreased air movement - bilaterally - Cardiovascular Rhythm: Regular, Tachycardia Heart sounds: Normal auscultation Murmur: No - Abdominal Distension: Distended Tenderness: Nontender - Back Back: Normal - Extremities General upper extremity: Normal inspection, Normal ROM General lower extremity: Normal inspection, Normal ROM - Skin Skin Temperature: Warm Skin Moisture: Dry Skin Color: Normal <RAFA GHOSH - Last Filed: 12/29/16 13:01> <NIXON ELAINE - Last Filed: 12/29/16 16:52> - Vital signs Vitals: Temp Pulse Resp BP Pulse Ox 98.9 F 115 H 20 137/80 H 98 12/29/16 10:01 12/29/16 10:01 12/29/16 10:01 12/29/16 10:01 12/29/16 10:01 - Neurological Notes: Speech is at baseline for patient, difficult to understand (RAFA GHOSH) Course - Laboratory Result Diagrams: 12/29/16 10:55 12/29/16 10:55 <RAFA GHOSH - Last Filed: 12/29/16 13:01> - Laboratory Result Diagrams: 12/29/16 10:55 12/29/16 10:55 - Diagnostic Test Radiology reviewed: Reports reviewed <NIXON ELAINE - Last Filed: 12/29/16 16:52> - Re-evaluation Re-evalutation: 12/29/16 Patient is a 71-year-old male with a history of schizophrenia who comes in with altered mental status per his care providers. Patient has been tachycardic. Patient was vomiting last night. Patient does have leukocytosis. Patient also had a recent fall 2 days ago. Patient has not been found to have any thing bleeding or broken. I cannot find any source of infection. The patient is not vomiting although, he will not really take much oral intake. The patient has been afebrile. Regardless, patient has been persistently tachycardic and apparently is not back to his baseline. Patient was discussed with the hospitalist service and will be kept for observation due to his encephalopathy and persistent tachycardia. (NIXON ELAINE) - Vital Signs Vital signs: Temp Pulse Resp BP Pulse Ox 98.9 F 115 H 20 137/80 H 98 12/29/16 10:01 12/29/16 10:01 12/29/16 10:01 12/29/16 10:01 12/29/16 10:01 - Laboratory Laboratory results interpreted by me: 12/29/16 12/29/16 12/29/16 10:55 10:55 14:10 WBC 20.3 H Hgb 10.6 L Hct 32.2 L MCV 69 L MCH 22.6 L RDW 15.0 H Seg Neuts % (Manual) 95 H Lymphocytes % (Manual) 2 L Abs Neuts (Manual) 19.3 H Abs Lymphs (Manual) 0.4 L Sodium 135.5 L Chloride 95 L Glucose 132 H POC Glucose Direct Bilirubin 0.5 H Alkaline Phosphatase 130 H Urine Protein 30 H Urine Ketones TRACE H Urine Blood SMALL H 12/29/16 14:45 WBC Hgb Hct MCV MCH RDW Seg Neuts % (Manual) Lymphocytes % (Manual) Abs Neuts (Manual) Abs Lymphs (Manual) Sodium Chloride Glucose POC Glucose 139 H Direct Bilirubin Alkaline Phosphatase Urine Protein Urine Ketones Urine Blood Discharge <RAFA GHOSH - Last Filed: 12/29/16 13:01> - Discharge Admitting Provider: Hospitalist - [place] [facility] Admitted: Telemetry <NIXON ELAINE - Last Filed: 12/29/16 16:52> - Discharge Clinical Impression: Encephalopathy, Tachycardia, Schizo-affective schizophrenia, chronic condition Vomiting Qualifiers: Vomiting type: unspecified Vomiting Intractability: non-intractable Nausea presence: with nausea Qualified Code(s): R11.2 - Nausea with vomiting, unspecified Condition: Stable Disposition: ADMITTED OBSERVATION Referrals: CHARLENE ANDERSON MD [Primary Care Provider] - Follow up as needed Scribe Attestation: 12/29/16 16:50 I personally performed the services described in the documentation, reviewed and edited the documentation which was dictated to the scribe in my presence, and it accurately records my words and actions. 12/29/16 16:52 I personally performed the services described in the documentation, reviewed and edited the documentation which was dictated to the scribe in my presence, and it accurately records my words and actions. (NIXON ELAINE) Scribe Documentation - Scribe Written by Joby:: joby Matos, 12/29/2016, 1215 acting as scribe for :: Carol <RAFA GHOSH - Last Filed: 12/29/16 13:01>
--- NOTE | 2016-12-29 12:21 | RADIOLOGY REPORT (SQ) ---
EXAM DESCRIPTION: CHEST SINGLE VIEW COMPLETED DATE/TIME: 12/29/2016 11:53 am REASON FOR STUDY: fall/confusion COMPARISON: 12/14/2016 EXAM PARAMETERS: NUMBER OF VIEWS: One view. TECHNIQUE: Single frontal radiographic view of the chest acquired. RADIATION DOSE: NA LIMITATIONS: None. FINDINGS: LUNGS AND PLEURA: Persistent low lung volumes. Pulmonary vascular congestion. There is o pacification the retrocardiac area on the left. MEDIASTINUM AND HILAR STRUCTURES: No masses. Contour normal. HEART AND VASCULAR STRUCTURES: Heart normal in size. Normal vasculature. BONES: No acute findings. HARDWARE: Sternotomy wires. OTHER: No other significant finding. IMPRESSION: Cannot exclude left lower lobe pneumonia. TECHNICAL DOCUMENTATION: JOB ID: [id number]
[2016-12-29] MEDS ORDERED: CEFEPIME 1 GM/D5W RTU 1 GM/50 ML RTUPB IV ONE (12:45)
--- NOTE | 2016-12-29 12:45 | EKG REPORT ---
SEVERITY:- ABNORMAL ECG - SINUS TACHYCARDIA PROBABLE LEFT ATRIAL ABNORMALITY LVH WITH SECONDARY REPOLARIZATION ABNORMALITY ANTERIOR Q WAVES, POSSIBLY DUE TO LVH : Confirmed by: Bernardo Phelan MD 29-Dec-2016 12:44:11
--- NOTE | 2016-12-29 13:15 | RADIOLOGY REPORT (SQ) ---
EXAM DESCRIPTION: CT HEAD WITHOUT COMPLETED DATE/TIME: 12/29/2016 1:02 pm REASON FOR STUDY: fall/confusion COMPARISON: [address] brain exams since 2011, most recently 12/14/2016. TECHNIQUE: Axial images acquired through the brain without intravenous contrast. Images reviewed wi th bone, brain and subdural windows. Images stored on PACS. All CT scanners at this facility use dose modulation, iterative reconstruction, and/or weight based d osing when appropriate to reduce radiation dose to as low as reasonably achievable (ALARA). [facility]: Dose Right [facility]: CareDose [facility]: Dose Right [facility]: Teradose 4D [facility]: Smart [employer] RADIATION DOSE: Up-to-date CT equipment and radiation dose reduction techniques were employed. CTDIv ol: 64.6 mGy. DLP: 1163 mGy-cm. mGy. LIMITATIONS: Motion artifact throughout the study FINDINGS: Motion artifact. On images without motion, no gross acute intracranial hemorrhage, large territory acute ischemic change, mass effect, or midline shift. Old lacunar infarct right lateral basal ganglia image 17. Heavily calcified falx. Old nasal bone fractures. No gross calvarial fracture. IMPRESSION: Limited study. No acute intracranial changes EVIDENCE OF ACUTE STROKE: NO. COMMENT: Quality ID # [id number]: Final reports with documentation of one or more dose reduction techniques (e.g., Automated exposure control, adjustment of the mA and/or kV according to patient size, use of iterative reconstruction technique) TECHNICAL DOCUMENTATION: JOB ID: [id number] [employer]- All Rights Reserved
--- NOTE | 2016-12-29 13:24 | RADIOLOGY REPORT (SQ) ---
EXAM DESCRIPTION: CT CERVICAL SPINE WITHOUT COMPLETED DATE/TIME: 12/29/2016 1:02 pm REASON FOR STUDY: fall, pain COMPARISON: None. TECHNIQUE: Axial images acquired through the cervical spine without intravenous contrast. Images re viewed with lung, soft tissue and bone windows. Reconstructed coronal and sagittal MPR images review ed. Images stored on PACS. All CT scanners at this facility use dose modulation, iterative reconstruction, and/or weight based d osing when appropriate to reduce radiation dose to as low as reasonably achievable (ALARA). [facility]: Dose Right [facility]: CareDose [facility]: Dose Right [facility]: Teradose 4D [facility]: Smart [employer] RADIATION DOSE: Up-to-date CT equipment and radiation dose reduction techniques were employed. CTDIv ol: 22.3 mGy. DLP: 542 mGy-cm. mGy. LIMITATIONS: None. FINDINGS: ALIGNMENT: Reversal of cervical lordosis MINERALIZATION: Normal. VERTEBRAL BODIES: No fractures or dislocation. DISCS: Craniocervical junction, C1-2 are unremarkable. At C2-3 there is mild central canal narrowing from ossification of the posterior longitudinal ligamen t and mild left foraminal narrowing. No right foraminal stenosis. Bulky anterior osteophytes. At C3-4, moderate central canal stenosis results from broad diffuse posterior disc bulging and ossifi cation of posterior longitudinal ligament. Moderate to high-grade bilateral foraminal narrowing is pr esent. Bulky anterior osteophytes. At C4-5, mild posterior disc bulge and bony spurring causes borderline central canal narrowing. Moder ate bilateral foraminal narrowing, left greater than right. Bulky anterior osteophytes. At C5-6, mild posterior disc bulge and bony spurring is present with borderline central canal narrowi ng. Moderate bilateral foraminal stenosis. Bulky anterior osteophytes. At C6-7, moderate central canal stenosis results from broad diffuse disc bulge and bony spurring, hig h-grade bilateral foraminal narrowing is present. C7-T1 has mild to moderate bilateral foraminal narrowing from facet and uncovertebral hypertrophy. N o significant central stenosis. FACETS, LATERAL MASSES, POSTERIOR ELEMENTS: No fractures. No dislocation. No acute findings. HARDWARE: None in the spine. VISUALIZED RIBS: No fractures. LUNG APICES AND SOFT TISSUES: No significant or acute findings. OTHER: No other significant finding. IMPRESSION: Multilevel central and foraminal stenosis. No acute changes. TECHNICAL DOCUMENTATION: JOB ID: [id number] Quality ID # [id number]: Final reports with documentation of one or more dose reduction techniques (e.g., Au tomated exposure control, adjustment of the mA and/or kV according to patient size, use of iterative reconstruction technique) 2010 [employer]- All Rights Reserved
--- NOTE | 2016-12-29 13:49 | RADIOLOGY REPORT (SQ) ---
EXAM DESCRIPTION: CT CHEST WITH; CT ABD/PELVIS WITH IV ONLY COMPLETED DATE/TIME: 12/29/2016 1:02 pm REASON FOR STUDY: fall, pain COMPARISON: CT abdomen pelvis 10/16/2013 CONTRAST TYPE AND DOSE: contrast/concentration: Isovue 370.00 mg/ml; Total Contrast Delivered: 91.0 ml; Total Saline Delivered: 70.0 ml RENAL FUNCTION: Creatinine 0.95 TECHNIQUE: CT scan of the chest performed using helical scanning technique with dynamic intravenous contrast injection. Images reviewed with lung, soft tissue and bone windows. Reconstructed coronal a nd sagittal MPR images reviewed. All images stored on PACS. CT scan of the abdomen and pelvis performed with intravenous and without oral contrastusing helical s marino technique with dynamic intravenous contrast injection. Images reviewed with lung, soft tissu e and bone windows. Reconstructed coronal and sagittal MPR images reviewed. Delayed images for eval uation of the urinary system also acquired and evaluated. All images stored on PACS. All CT scanners at this facility use dose modulation, iterative reconstruction, and/or weight based d osing when appropriate to reduce radiation dose to as low as reasonably achievable (ALARA). [facility]: Dose Right [facility]: CareDose [facility]: Dose Right [facility]: Teradose 4D [facility]: [employer] Technologies RADIATION DOSE: Up-to-date CT equipment and radiation dose reduction techniques were employed. CTDIv ol: 15.7 - 20.4 mGy. DLP: 2262 mGy-cm. . LIMITATIONS: None. FINDINGS: CHEST: LUNGS AND PLEURA: No opacities, nodules, masses. No pneumothorax. No effusions. HILAR AND MEDIASTINAL STRUCTURES: No identified masses or abnormal nodes. HEART AND VASCULAR STRUCTURES: No aneurysm or dissection. No central pulmonary emboli. No pericardi al effusion. Old sternotomy and aortic valve replacement. Moderate cardiomegaly. HARDWARE: Aortic valve THYROID AND OTHER SOFT TISSUES: No masses. No adenopathy. Mild gynecomastia BONES: No significant finding. OTHER: No other significant finding. ABDOMEN AND PELVIS: LIVER: Normal size. No masses. No dilated ducts. Benign less than 2 cm hepatic cysts in the right a nd left lobe liver. SPLEEN: Normal size. No focal lesions. PANCREAS: No masses. No significant calcifications. No adjacent inflammation or peripancreatic fluid collections. Pancreatic duct not dilated. GALLBLADDER: No identified stones by CT criteria. No inflammatory changes to suggest cholecystitis. ADRENAL GLANDS: No significant masses or asymmetry. RIGHT KIDNEY AND URETER: No solid masses. No significant calcification. No hydronephrosis or hydroure ter. LEFT KIDNEY AND URETER: No solid masses. No significant calcification. No hydronephrosis or hydrouret er. AORTA AND VESSELS: No aneurysm. No dissection. Renal arteries, SMA, celiac without stenosis. RETROPERITONEUM: No retroperitoneal adenopathy, hemorrhage or masses. BOWEL AND PERITONEAL CAVITY: No masses or inflammatory changes. No free fluid or peritoneal masses. Large amount of stool in the ascending and transverse colon APPENDIX: Normal. ABDOMINAL WALL: No masses. No hernias. BONES: No acute findings. Multilevel degenerative disc changes in the lower lumbar spine. PELVIS: No other significant finding. No masses free fluid or adenopathy IMPRESSION: No acute findings over the chest abdomen or pelvis TECHNICAL DOCUMENTATION: JOB ID: [id number] Quality ID # [id number]: Final reports with documentation of one or more dose reduction techniques (e.g., Au tomated exposure control, adjustment of the mA and/or kV according to patient size, use of iterative reconstruction technique) 2010 [employer]- All Rights Reserved
[2016-12-29] MEDS ORDERED: NORMAL SALINE 1000 ML 1,000 ML IV ONE ×2 (14:05→14:31)
[2016-12-29 15:11] LABS: APPEARANCE,URINE CLOUDY; BILIRUBIN,URINE NEGATIVE (NEGATIVE); GLUCOSE, URINE NEGATIVE (NEGATIVE); KETONES,URINE TRACE mg/dL (NEGATIVE); LEUKOCYTE ESTERASE,URINE NEGATIVE (NEGATIVE); NITRITE,URINE NEGATIVE (NEGATIVE); PROTEIN,URINE 30 mg/dL (NEGATIVE); URINE SPECIFIC GRAVITY 1.032; UROBILINOGEN,URINE NEGATIVE mg/dL (<2.0)
[2016-12-29] MEDS ORDERED: MAGNESIUM CITRATE 296 ML BOTTLE PO ONE (16:41)
[2016-12-29] MEDS ORDERED: ONDANSETRON HCL INJ/PF 4 MG/2 ML SDV IV PRN (16:42)
[2016-12-29] MEDS ORDERED: ONDANSETRON HCL INJ/PF 4 MG/2 ML SDV IV ONE (16:42)
[2016-12-29] MEDS ORDERED: NA PHOS,M-B/NA PHOS,DI-BA (ADULT) 133 ML ENEMA PR ONE (16:43)
--- NOTE | 2016-12-29 17:11 | PDOC H&P ---
History of Present Illness Admission Date/PCP: CHARLENE ANDERSON MD Patient complains of: Nausea History of Present Illness: CRISTIAN HAM is a 71 year old male presents to our facility from [facility]. Patient's care provider states that patient fell at the [facility] off the front porch. Patient has nasal abrasion and abrasion to top of head. Care provider from [facility] reports that patient has not been acting himself she states that he has been vomiting overnight. ER reports that patient wants to eat but when he does he vomits. Patient's care provider reports that patient has been coughing and experiencing changes in breathing since vomiting overnight. Patient is a poor historian due to mental illness. Past Medical History Cardiac Medical History: Reports: Hyperlipidema, Hypertension Comment Only: Atrial Fibrillation - IRREGULAR HEARTBEAT Pulmonary Medical History: Reports: Chronic Obstructive Pulmonary Disease (COPD) Denies: Tuberculosis - unknown Endocrine Medical History: Reports: Diabetes Mellitus Type 1, Diabetes Mellitus Type 2 GI Medical History: Reports: Gastroesophageal Reflux Disease Psychiatric Medical History: Reports: Depression, Personality Disorder - Dependent personality disorder, Schizoaffective Disorder Hematology: Reports: Anemia Social History Smoking Status: Unknown if Ever Smoked Frequency of Alcohol Use: None Hx Recreational Drug Use: No Hx Prescription Drug Abuse: No Family History Family History: Reviewed & Not Pertinent Parental Family History Reviewed: Yes Children Family History Reviewed: Yes Sibling(s) Family History Reviewed.: Yes Medication/Allergy Allergies/Adverse Reactions: No Known Allergies Allergy (Verified 12/29/16 10:40) Review of Systems ROS unobtainable: Other - Secondaryto mental illness. Physical Exam Vital Signs: Temp Pulse Resp BP Pulse Ox 98.9 F 115 H 20 137/80 H 98 12/29/16 10:01 12/29/16 10:01 12/29/16 10:01 12/29/16 10:01 12/29/16 10:01 Intake & Output 12/28/16 12/29/16 12/30/16 06:59 06:59 06:59 Weight 84.1 kg General appearance: PRESENT: mild distress, well-developed, well-nourished Head exam: PRESENT: atraumatic, normocephalic Eye exam: PRESENT: conjunctiva pink, EOMI. ABSENT: scleral icterus Ear exam: PRESENT: normal external ear exam Mouth exam: PRESENT: moist, tongue midline Neck exam: ABSENT: carotid bruit, JVD, lymphadenopathy, thyromegaly Respiratory exam: PRESENT: other - Pt with coarse breath sounds, + cough on examine, with fair airmovement. Pulses: PRESENT: normal dorsalis pedis pul Vascular exam: PRESENT: normal capillary refill GI/Abdominal exam: PRESENT: normal bowel sounds, soft. ABSENT: distended, guarding, mass, organolmegaly, rebound, tenderness Rectal exam: PRESENT: deferred Extremities exam: PRESENT: full ROM. ABSENT: calf tenderness, clubbing, pedal edema Neurological exam: PRESENT: alert, awake, oriented to person Psychiatric exam: PRESENT: appropriate affect, normal mood. ABSENT: homicidal ideation, suicidal ideation Skin exam: PRESENT: abrasion - nasal bridge and top of head Results Laboratory Results: 12/29/16 10:55 12/29/16 10:55 12/29/16 12/29/16 12/29/16 10:55 10:55 10:55 WBC 20.3 H RBC 4.67 Hgb 10.6 L Hct 32.2 L MCV 69 L MCH 22.6 L MCHC 32.8 RDW 15.0 H Plt Count 437 Seg Neutrophils % Not Reportable Lymphocytes % Not Reportable Monocytes % Not Reportable Eosinophils % Not Reportable Basophils % Not Reportable Absolute Neutrophils Not Reportable Absolute Lymphocytes Not Reportable Absolute Monocytes Not Reportable Absolute Eosinophils Not Reportable Absolute Basophils Not Reportable VBG pH VBG pCO2 VBG HCO3 VBG Base Excess Sodium 135.5 L Potassium 4.0 Chloride 95 L Carbon Dioxide 23 Anion Gap 18 BUN 19 Creatinine 0.95 Est GFR ( Amer) > 60 Est GFR (Non-Af Amer) > 60 Glucose 132 H Lactic Acid 1.4 Calcium 9.3 Total Bilirubin 0.9 AST 18 ALT 31 Alkaline Phosphatase 130 H Total Protein 7.4 Albumin 4.2 Urine Color Urine Appearance Urine pH Ur Specific [place] Urine Protein Urine Glucose (UA) Urine Ketones Urine Blood Urine Nitrite Ur Leukocyte Esterase Urine WBC (Auto) Urine RBC (Auto) 12/29/16 12/29/16 10:55 14:10 WBC RBC Hgb Hct MCV MCH MCHC RDW Plt Count Seg Neutrophils % Lymphocytes % Monocytes % Eosinophils % Basophils % Absolute Neutrophils Absolute Lymphocytes Absolute Monocytes Absolute Eosinophils Absolute Basophils VBG pH 7.42 VBG pCO2 38.0 VBG HCO3 23.8 VBG Base Excess -0.5 Sodium Potassium Chloride Carbon Dioxide Anion Gap BUN Creatinine Est GFR ( Amer) Est GFR (Non-Af Amer) Glucose Lactic Acid Calcium Total Bilirubin AST ALT Alkaline Phosphatase Total Protein Albumin Urine Color YELLOW Urine Appearance CLOUDY Urine pH 5.0 Ur Specific [place] 1.032 Urine Protein 30 H Urine Glucose (UA) NEGATIVE Urine Ketones TRACE H Urine Blood SMALL H Urine Nitrite NEGATIVE Ur Leukocyte Esterase NEGATIVE Urine WBC (Auto) 6 Urine RBC (Auto) 2 12/29/16 12/29/16 12/29/16 10:55 10:55 10:55 Creatine Kinase 155 CK-MB (CK-2) 1.11 Troponin I < 0.012 Impressions: Head CT 12/29/16 10:22 IMPRESSION: Limited study. No acute intracranial changes EVIDENCE OF ACUTE STROKE: NO. Chest X-Ray 12/29/16 10:23 IMPRESSION: Cannot exclude left lower lobe pneumonia. Abdomen/Pelvis CT 12/29/16 11:27 IMPRESSION: No acute findings over the chest abdomen or pelvis Cervical Spine CT 12/29/16 11:27 IMPRESSION: Multilevel central and foraminal stenosis. No acute changes. Chest CT 12/29/16 11:27 IMPRESSION: No acute findings over the chest abdomen or pelvis Assessment & Plan - Diagnosis (1) Acute chemical pneumonitis Is this a current diagnosis for this admission?: Yes Plan: CXR and CT of chest neg. Pt most likely has Pneumonitis from vomitting. Will place on breathing treatment and chest PT. (2) Vomiting Qualifiers: Vomiting type: unspecified Is this a current diagnosis for this admission?: Yes Plan: Suspect Secondary to Constipation: Will give Magnesium Citrate and Fleets Enema. Will order KUB in am. Will place on Zofran. (3) Constipation Qualifiers: Constipation type: unspecified constipation type Qualified Code(s): K59.00 - Constipation, unspecified Is this a current diagnosis for this admission?: Yes Plan: Will give Magnesium Citrate and Fleets Enema. (4) Leukocytosis Is this a current diagnosis for this admission?: Yes Plan: Will monitor. (5) DVT prophylaxis Is this a current diagnosis for this admission?: Yes Plan: SCDs - Time Time Spent: 30 to 50 Minutes Within: within 48 hours
[2016-12-29] MEDS: IPRATROPIUM/ALBUTEROL 0.5-2.5 MG/3 ML AMPUL NEB SCH (20:49)
[2016-12-30] MEDS: NORMAL SALINE 1000 ML 1,000 ML IV PRN (00:35)
[2016-12-30] MEDS: IPRATROPIUM/ALBUTEROL 0.5-2.5 MG/3 ML AMPUL NEB SCH ×4 (01:42→20:23)
[2016-12-30] MEDS: CLONIDINE HCL 0.1 MG TABLET PO SCH ×3 (05:19→22:06)
[2016-12-30] MEDS: HALOPERIDOL 5 MG TABLET PO SCH ×3 (05:19→22:06)
[2016-12-30 06:09] LABS: ABSOLUTE BASOPHILS # (AUTO) 0.1 10^3/uL (0.0-0.2); ABSOLUTE LYMPHOCYTES (AUTO) 1.1 10^3/uL (0.5-4.7); ABSOLUTE MONOCYTES (AUTO) 1.3 10^3/uL (0.1-1.4); ABSOLUTE NEUT (AUTO) 15.9 10^3/uL (1.7-8.2); BASOPHILS % (AUTO) 0.4 % (0-2); HEMATOCRIT 29.4 % (37.9-51.0); HEMOGLOBIN 9.9 g/dL (13.5-17.0); HGB HCT DIFFERENCE 0.3; MEAN CORPUSCULAR HEMOGLOBIN 23.2 pg (27.0-33.4); MEAN CORPUSCULAR HGB CONC 33.8 g/dL (32.0-36.0); MEAN CORPUSCULAR VOLUME 69 fl (80-97); MONOCYTES % (AUTO) 6.8 % (3-13); RED BLOOD COUNT 4.28 10^6/uL (4.35-5.55); SEGMENTED NEUTROPHILS % (AUTO) 86.8 % (42-78); WHITE BLOOD COUNT 18.3 10^3/uL (4.0-10.5)
[2016-12-30 06:38] LABS: ANION GAP 13 (5-19); BLOOD UREA NITROGEN 12 mg/dL (7-20); CALCIUM 8.6 mg/dL (8.4-10.2); CARBON DIOXIDE 22 mmol/L (22-30); CHLORIDE 102 mmol/L (98-107); CREATININE RESULT 0.74 mg/dL (0.52-1.25); GLUCOSE 111 mg/dL (75-110); MAGNESIUM 2.2 mg/dL (1.6-2.3); POTASSIUM 3.7 mmol/L (3.6-5.0); SODIUM 137.1 mmol/L (137-145)
--- NOTE | 2016-12-30 07:23 | EKG REPORT ---
SEVERITY:- ABNORMAL ECG - SINUS TACHYCARDIA PROBABLE LEFT ATRIAL ABNORMALITY LVH WITH SECONDARY REPOLARIZATION ABNORMALITY ANTERIOR Q WAVES, POSSIBLY DUE TO LVH : Confirmed by: Bernardo Phelan MD 30-Dec-2016 07:22:05
[2016-12-30] MEDS ORDERED: METOPROLOL TARTRATE 25 MG TABLET PO ONE (09:00)
[2016-12-30] MEDS ORDERED: VANCOMYCIN HCL 0 MG in DEXTROSE 5%-WATER 250 ML IV NR (09:15)
--- NOTE | 2016-12-30 09:30 | RADIOLOGY REPORT (SQ) ---
EXAM DESCRIPTION: KUB/ABDOMEN (SINGLE VIEW) COMPLETED DATE/TIME: 12/30/2016 8:18 am REASON FOR STUDY: Constipation COMPARISON: CT abdomen pelvis 12/29/2016 KUB 12/23/2016 NUMBER OF VIEWS: One view. TECHNIQUE: Supine radiographic image of the abdomen acquired. LIMITATIONS: None. FINDINGS: BOWEL GAS PATTERN: Massive amount of stool in the right colon. Decrease in stool in the d escending colon and rectosigmoid. On today's study there are air-filled dilated small bowel loops. There may be a functional obstruct ion with so much stool in the right colon. Stomach decompressed CALCIFICATIONS: No suspicious calcifications. SOFT TISSUES: No gross mass or suggestion of organomegaly. HARDWARE: Macedo catheter in the bladder BONES: Degenerative disc changes and facet arthropathy at L5-S1 OTHER: No other significant finding. IMPRESSION: Persistent large amount of stool in the ascending colon. Distended small bowel loops, suspect a functional obstruction due to right-sided colon constipation TECHNICAL DOCUMENTATION: JOB ID: [id number] [employer]- All Rights Reserved
[2016-12-30] MEDS ORDERED: MAGNESIUM CITRATE 296 ML BOTTLE PO ONE (10:00)
[2016-12-30] MEDS ORDERED: VANCOMYCIN HCL 1,500 MG in DEXTROSE 5%-WATER 250 ML IV ONE (10:00)
[2016-12-30] MEDS ORDERED: NA PHOS,M-B/NA PHOS,DI-BA (ADULT) 133 ML ENEMA PR ONE (10:00)
--- NOTE | 2016-12-30 10:26 | PDOC PROGRESS REPORT ---
Subjective Progress Note for:: 12/30/16 Subjective:: No new issues. Nursing states that night Nurse did not give pt magnesium citrate nor fleet's enema. Nursing reported that pt had 2 blood cultures that were positive. Physical Exam Vital Signs: Temp Pulse Resp BP Pulse Ox 99.1 F 120 H 18 149/93 H 95 12/30/16 07:44 12/30/16 07:46 12/30/16 07:44 12/30/16 07:46 12/30/16 07:44 Intake & Output 12/29/16 12/30/16 12/31/16 06:59 06:59 06:59 Intake Total 1012 Output Total 4075 Balance -3063 Weight 81.4 kg General appearance: PRESENT: no acute distress, well-developed, well-nourished Head exam: PRESENT: atraumatic, normocephalic Eye exam: PRESENT: conjunctiva pink, EOMI. ABSENT: scleral icterus Ear exam: PRESENT: normal external ear exam Mouth exam: PRESENT: dry mucosa Neck exam: ABSENT: carotid bruit, JVD, lymphadenopathy, thyromegaly Respiratory exam: PRESENT: other - upper airway nose with coarse breath sounds heard upper lobes. Cardiovascular exam: PRESENT: RRR. ABSENT: diastolic murmur, rubs, systolic murmur Pulses: PRESENT: normal dorsalis pedis pul Vascular exam: PRESENT: normal capillary refill GI/Abdominal exam: PRESENT: normal bowel sounds, soft. ABSENT: distended, guarding, mass, organolmegaly, rebound, tenderness Rectal exam: PRESENT: deferred Extremities exam: PRESENT: full ROM. ABSENT: calf tenderness, clubbing, pedal edema Neurological exam: PRESENT: alert, oriented to person Psychiatric exam: PRESENT: appropriate affect, normal mood. ABSENT: homicidal ideation, suicidal ideation Skin exam: PRESENT: abrasion - nasal bridge and top for head., dry, intact, warm. ABSENT: cyanosis, rash Results Laboratory Results: 12/30/16 05:41 12/30/16 05:41 12/30/16 12/30/16 05:41 05:41 WBC 18.3 H RBC 4.28 L Hgb 9.9 L Hct 29.4 L MCV 69 L MCH 23.2 L MCHC 33.8 RDW 15.0 H Plt Count 388 Seg Neutrophils % 86.8 H Lymphocytes % 6.0 L Monocytes % 6.8 Eosinophils % 0.0 Basophils % 0.4 Absolute Neutrophils 15.9 H Absolute Lymphocytes 1.1 Absolute Monocytes 1.3 Absolute Eosinophils 0.0 Absolute Basophils 0.1 Sodium 137.1 Potassium 3.7 Chloride 102 Carbon Dioxide 22 Anion Gap 13 BUN 12 Creatinine 0.74 Est GFR ( Amer) > 60 Est GFR (Non-Af Amer) > 60 Glucose 111 H Calcium 8.6 Magnesium 2.2 Impressions: Head CT 12/29/16 10:22 IMPRESSION: Limited study. No acute intracranial changes EVIDENCE OF ACUTE STROKE: NO. Chest X-Ray 12/29/16 10:23 IMPRESSION: Cannot exclude left lower lobe pneumonia. Abdomen/Pelvis CT 12/29/16 11:27 IMPRESSION: No acute findings over the chest abdomen or pelvis Cervical Spine CT 12/29/16 11:27 IMPRESSION: Multilevel central and foraminal stenosis. No acute changes. Chest CT 12/29/16 11:27 IMPRESSION: No acute findings over the chest abdomen or pelvis KUB X-Ray 12/30/16 06:00 IMPRESSION: Persistent large amount of stool in the ascending colon. Distended small bowel loops, suspect a functional obstruction due to right- sided colon constipation Assessment & Plan - Diagnosis (1) Sepsis Qualifiers: Sepsis type: sepsis due to unspecified organism Qualified Code(s): A41.9 - Sepsis, unspecified organism Is this a current diagnosis for this admission?: Yes Plan: Secondary to Gram Positive Cocci: Will add Vancomycin and Zosyn. (2) Acute chemical pneumonitis Is this a current diagnosis for this admission?: Yes Plan: CXR and CT of chest neg. Pt most likely has Pneumonitis from vomiting. (3) Vomiting Qualifiers: Vomiting type: unspecified Is this a current diagnosis for this admission?: Yes Plan: Suspect Secondary to Constipation: Will reorder Magnesium Citrate and Fleets Enema due to nursing staff not giving medication. Will place on Zofran. (4) Constipation Qualifiers: Constipation type: unspecified constipation type Qualified Code(s): K59.00 - Constipation, unspecified Is this a current diagnosis for this admission?: Yes Plan: Will give Magnesium Citrate and Fleets Enema. (5) Leukocytosis Is this a current diagnosis for this admission?: Yes Plan: Will monitor. (6) DVT prophylaxis Is this a current diagnosis for this admission?: Yes Plan: SCDs - Time Time Spent with patient: 15-24 minutes
[2016-12-30] MEDS: PIPERACILLIN SODIUM/TAZOBACTAM 3.375 GM in DEXTROSE 5%-WATER 100 ML IV SCH ×2 (13:06→17:07)
[2016-12-30] MEDS: LORAZEPAM 1 MG TABLET PO SCH ×2 (13:41→22:06)
[2016-12-30] MEDS ORDERED: AMOXICILLIN TR/POT CLAVULANATE 500-125 MG TAB PO SCH (14:00)
[2016-12-30] MEDS: VANCOMYCIN HCL 750 MG in DEXTROSE 5%-WATER 250 ML IV SCH (18:39)
[2016-12-30] MEDS: METOPROLOL TARTRATE 25 MG TABLET PO SCH (22:06)
[2016-12-31] MEDS: PIPERACILLIN SODIUM/TAZOBACTAM 3.375 GM in DEXTROSE 5%-WATER 100 ML IV SCH ×5 (00:59→23:56)
[2016-12-31] MEDS: NORMAL SALINE 1000 ML 1,000 ML IV PRN (01:06)
[2016-12-31] MEDS: IPRATROPIUM/ALBUTEROL 0.5-2.5 MG/3 ML AMPUL NEB SCH ×4 (01:14→19:34)
[2016-12-31] MEDS: VANCOMYCIN HCL 750 MG in DEXTROSE 5%-WATER 250 ML IV SCH ×2 (02:40→09:46)
[2016-12-31 05:20] LABS: ABSOLUTE BASOPHILS # (AUTO) 0.1 10^3/uL (0.0-0.2); ABSOLUTE LYMPHOCYTES (AUTO) 1.3 10^3/uL (0.5-4.7); ABSOLUTE MONOCYTES (AUTO) 1.1 10^3/uL (0.1-1.4); ABSOLUTE NEUT (AUTO) 13.4 10^3/uL (1.7-8.2); BASOPHILS % (AUTO) 0.8 % (0-2); EOSINOPHILS % (AUTO) 0.1 % (0-6); HEMATOCRIT 29.6 % (37.9-51.0); HEMOGLOBIN 9.8 g/dL (13.5-17.0); HGB HCT DIFFERENCE -0.2; LYMPHOCYTES % (AUTO) 8.2 % (13-45); MEAN CORPUSCULAR HEMOGLOBIN 22.6 pg (27.0-33.4); MEAN CORPUSCULAR VOLUME 68 fl (80-97); MONOCYTES % (AUTO) 6.6 % (3-13); RED BLOOD COUNT 4.34 10^6/uL (4.35-5.55); RED CELL DISTRIBUTION WIDTH 14.8 % (11.5-14.0); SEGMENTED NEUTROPHILS % (AUTO) 84.3 % (42-78); WHITE BLOOD COUNT 15.9 10^3/uL (4.0-10.5)
[2016-12-31 05:42] LABS: ANION GAP 12 (5-19); BLOOD UREA NITROGEN 17 mg/dL (7-20); CALCIUM 8.4 mg/dL (8.4-10.2); CARBON DIOXIDE 25 mmol/L (22-30); CHLORIDE 100 mmol/L (98-107); CREATININE RESULT 0.88 mg/dL (0.52-1.25); GLUCOSE 117 mg/dL (75-110); POTASSIUM 4.2 mmol/L (3.6-5.0)
[2016-12-31] MEDS: CLONIDINE HCL 0.1 MG TABLET PO SCH ×3 (06:18→22:55)
[2016-12-31] MEDS: HALOPERIDOL 5 MG TABLET PO SCH (06:18)
[2016-12-31] MEDS: LORAZEPAM 1 MG TABLET PO SCH ×3 (06:18→22:55)
[2016-12-31] MEDS: ACETAMINOPHEN 325 MG TABLET PO PRN ×2 (06:38→16:21)
[2016-12-31] MEDS: METOPROLOL TARTRATE 25 MG TABLET PO SCH ×2 (09:47→22:55)
[2016-12-31 10:10] LABS: CREATININE RESULT 0.95 mg/dL (0.52-1.25)
--- NOTE | 2016-12-31 14:41 | PDOC PROGRESS REPORT ---
Subjective Progress Note for:: 12/31/16 Subjective:: Nursing states that pt has been sleeping more. Nursing states that pt is getting Haldol scheduled. Nursing states that patient had multiple bowel movements. Physical Exam Vital Signs: Temp Pulse Resp BP Pulse Ox 97.7 F 95 18 133/87 H 95 12/31/16 11:41 12/31/16 11:41 12/31/16 11:41 12/31/16 11:41 12/31/16 11:41 Intake & Output 12/30/16 12/31/16 01/01/17 06:59 06:59 06:59 Intake Total 2774 Output Total 3600 Balance -826 Weight 78.4 kg General appearance: PRESENT: other - Pt is sleeping Head exam: PRESENT: atraumatic, normocephalic Eye exam: PRESENT: other - Eyes closed Ear exam: PRESENT: normal external ear exam Mouth exam: PRESENT: moist, tongue midline Respiratory exam: PRESENT: clear to auscultation daxa, other - Positive for upper airway noise. ABSENT: rales, rhonchi, wheezes Cardiovascular exam: PRESENT: RRR. ABSENT: diastolic murmur, rubs, systolic murmur Pulses: PRESENT: normal dorsalis pedis pul GI/Abdominal exam: PRESENT: normal bowel sounds, soft. ABSENT: distended, guarding, mass, organolmegaly, rebound, tenderness Rectal exam: PRESENT: deferred Extremities exam: PRESENT: full ROM. ABSENT: calf tenderness, clubbing, pedal edema Neurological exam: PRESENT: other - Sleeping Skin exam: PRESENT: dry, intact, warm. ABSENT: cyanosis, rash Results Laboratory Results: 12/31/16 04:09 12/31/16 09:40 12/31/16 12/31/16 12/31/16 04:09 04:09 09:40 WBC 15.9 H RBC 4.34 L Hgb 9.8 L Hct 29.6 L MCV 68 L MCH 22.6 L MCHC 33.0 RDW 14.8 H Plt Count 435 Seg Neutrophils % 84.3 H Lymphocytes % 8.2 L Monocytes % 6.6 Eosinophils % 0.1 Basophils % 0.8 Absolute Neutrophils 13.4 H Absolute Lymphocytes 1.3 Absolute Monocytes 1.1 Absolute Eosinophils 0.0 Absolute Basophils 0.1 Sodium 137.0 Potassium 4.2 Chloride 100 Carbon Dioxide 25 Anion Gap 12 BUN 17 Creatinine 0.88 0.95 Est GFR ( Amer) > 60 > 60 Est GFR (Non-Af Amer) > 60 > 60 Glucose 117 H Calcium 8.4 Impressions: Head CT 12/29/16 10:22 IMPRESSION: Limited study. No acute intracranial changes EVIDENCE OF ACUTE STROKE: NO. Chest X-Ray 12/29/16 10:23 IMPRESSION: Cannot exclude left lower lobe pneumonia. Abdomen/Pelvis CT 12/29/16 11:27 IMPRESSION: No acute findings over the chest abdomen or pelvis Cervical Spine CT 12/29/16 11:27 IMPRESSION: Multilevel central and foraminal stenosis. No acute changes. Chest CT 12/29/16 11:27 IMPRESSION: No acute findings over the chest abdomen or pelvis KUB X-Ray 12/30/16 06:00 IMPRESSION: Persistent large amount of stool in the ascending colon. Distended small bowel loops, suspect a functional obstruction due to right- sided colon constipation Assessment & Plan - Diagnosis (1) Sepsis Qualifiers: Sepsis type: sepsis due to unspecified organism Qualified Code(s): A41.9 - Sepsis, unspecified organism Is this a current diagnosis for this admission?: Yes Plan: Secondary to Gram Positive Cocci: Will add Vancomycin and Zosyn. (2) Acute chemical pneumonitis Is this a current diagnosis for this admission?: Yes Plan: CXR and CT of chest neg. Pt most likely has Pneumonitis from vomiting. (3) Vomiting Qualifiers: Vomiting type: unspecified Is this a current diagnosis for this admission?: Yes Plan: Suspect Secondary to Constipation: Resolved. (4) Constipation Qualifiers: Constipation type: unspecified constipation type Qualified Code(s): K59.00 - Constipation, unspecified Is this a current diagnosis for this admission?: Yes Plan: Resolved. (5) Leukocytosis Is this a current diagnosis for this admission?: Yes Plan: Will monitor. (6) Agitation requiring sedation protocol Is this a current diagnosis for this admission?: Yes Plan: Will discontinue Haldol. (7) DVT prophylaxis Is this a current diagnosis for this admission?: Yes Plan: SCDs - Time Time Spent with patient: 15-24 minutes
[2016-12-31] MEDS ORDERED: DEXTROSE 40% GEL 15 GM TUBE PO PRN ×2 (17:59)
[2016-12-31] MEDS ORDERED: GLUCAGON,HUMAN RECOMB 1 MG INJ SUBCUT PRN (17:59)
[2016-12-31] MEDS ORDERED: DEXTROSE 50%-WATER 25 GM/50 ML DISP.SYRIN IV PRN ×2 (17:59)
[2016-12-31] MEDS: VANCOMYCIN HCL 1,000 MG in DEXTROSE 5%-WATER 250 ML IV SCH (18:34)
[2016-12-31] MEDS: DEXTROSE 5%-NORMAL SALINE 1,000 ML IV PRN (18:36)
[2016-12-31] MEDS ORDERED: ACETAMINOPHEN 325 MG TABLET PO ONE (18:45)
--- NOTE | 2017-01-01 01:14 | Progress Note ---
Provider Note Provider Note: 01/01/17: Shortly after midnight, I was notified by patient's floor nurse that Macedo catheter had been reinserted by nursing staff prior to my being contacted about same. Matter was discussed first with hospital charge nurse Kathy Jacome , followed by discussion with patient's floor nurse. 3:20 AM, I went to the patient's bedside. He was asleep.
[2017-01-01] MEDS: IPRATROPIUM/ALBUTEROL 0.5-2.5 MG/3 ML AMPUL NEB SCH ×4 (01:19→20:03)
[2017-01-01] MEDS ORDERED: HALOPERIDOL LACTATE INJ 5 MG/1 ML VIAL IM PRN (01:23)
[2017-01-01] MEDS: VANCOMYCIN HCL 1,000 MG in DEXTROSE 5%-WATER 250 ML IV SCH ×3 (03:41→18:35)
[2017-01-01] MEDS: PIPERACILLIN SODIUM/TAZOBACTAM 3.375 GM in DEXTROSE 5%-WATER 100 ML IV SCH ×2 (06:47→11:54)
[2017-01-01] MEDS: METOPROLOL TARTRATE 25 MG TABLET PO SCH ×2 (09:45→22:23)
[2017-01-01] MEDS: LORAZEPAM 1 MG TABLET PO SCH ×3 (09:45→22:22)
[2017-01-01] MEDS: CLONIDINE HCL 0.1 MG TABLET PO SCH ×3 (09:46→22:23)
[2017-01-01] MEDS: ACETAMINOPHEN 325 MG TABLET PO PRN ×2 (12:51→22:29)
[2017-01-01] MEDS: DEXTROSE 5%-NORMAL SALINE 1,000 ML IV PRN (16:48)
--- NOTE | 2017-01-01 17:01 | PDOC PROGRESS REPORT ---
Subjective Progress Note for:: 01/01/17 Subjective:: He reports the patient pulled Macedo out twice. Night physician reported that Nurse placed Macedo without order. Physical Exam Vital Signs: Temp Pulse Resp BP Pulse Ox 99.1 F 87 23 H 183/82 H 96 01/01/17 15:46 01/01/17 15:46 01/01/17 15:46 01/01/17 15:46 01/01/17 15:46 Intake & Output 12/31/16 01/01/17 01/02/17 06:59 06:59 06:59 Intake Total 2774 2067 0 Output Total 3600 1100 930 Balance -826 967 -930 Weight 78.4 kg 78.4 kg General appearance: PRESENT: mild distress, well-developed, well-nourished Head exam: PRESENT: atraumatic, normocephalic Eye exam: PRESENT: conjunctiva pink, EOMI. ABSENT: scleral icterus Ear exam: PRESENT: normal external ear exam Mouth exam: PRESENT: dry mucosa Neck exam: ABSENT: carotid bruit, JVD, lymphadenopathy, thyromegaly Respiratory exam: PRESENT: clear to auscultation daxa, other - Positive for upper airway noise. ABSENT: rales, rhonchi, wheezes Cardiovascular exam: PRESENT: RRR. ABSENT: diastolic murmur, rubs, systolic murmur Pulses: PRESENT: normal dorsalis pedis pul Vascular exam: PRESENT: normal capillary refill GI/Abdominal exam: PRESENT: normal bowel sounds, soft. ABSENT: distended, guarding, mass, organolmegaly, rebound, tenderness Rectal exam: PRESENT: deferred Extremities exam: PRESENT: full ROM. ABSENT: calf tenderness, clubbing, pedal edema Neurological exam: PRESENT: alert, awake, oriented to person, oriented to place , oriented to time, oriented to situation, CN II-XII grossly intact. ABSENT: motor sensory deficit Psychiatric exam: PRESENT: appropriate affect, normal mood. ABSENT: homicidal ideation, suicidal ideation Skin exam: PRESENT: dry, intact, warm. ABSENT: cyanosis, rash Results Laboratory Results: 12/31/16 04:09 12/31/16 09:40 Impressions: Head CT 12/29/16 10:22 IMPRESSION: Limited study. No acute intracranial changes EVIDENCE OF ACUTE STROKE: NO. Chest X-Ray 12/29/16 10:23 IMPRESSION: Cannot exclude left lower lobe pneumonia. Abdomen/Pelvis CT 12/29/16 11:27 IMPRESSION: No acute findings over the chest abdomen or pelvis Cervical Spine CT 12/29/16 11:27 IMPRESSION: Multilevel central and foraminal stenosis. No acute changes. Chest CT 12/29/16 11:27 IMPRESSION: No acute findings over the chest abdomen or pelvis KUB X-Ray 12/30/16 06:00 IMPRESSION: Persistent large amount of stool in the ascending colon. Distended small bowel loops, suspect a functional obstruction due to right- sided colon constipation Assessment & Plan - Diagnosis (1) Sepsis Qualifiers: Sepsis type: sepsis due to unspecified organism Qualified Code(s): A41.9 - Sepsis, unspecified organism Is this a current diagnosis for this admission?: Yes Plan: Secondary to Gram Positive Cocci: Will add Vancomycin and Zosyn. (2) Acute chemical pneumonitis Is this a current diagnosis for this admission?: Yes Plan: CXR and CT of chest neg. Pt most likely has Pneumonitis from vomiting. Will repeat x-ray today. (3) Acute cystitis Is this a current diagnosis for this admission?: Yes Plan: Secondary to Aerococcus Urinae POA: Will continue current ABX (4) Vomiting Qualifiers: Vomiting type: unspecified Is this a current diagnosis for this admission?: Yes Plan: Suspect Secondary to Constipation: Resolved. (5) Constipation Qualifiers: Constipation type: unspecified constipation type Qualified Code(s): K59.00 - Constipation, unspecified Is this a current diagnosis for this admission?: Yes Plan: Resolved. (6) Leukocytosis Is this a current diagnosis for this admission?: Yes Plan: Will monitor. (7) Agitation requiring sedation protocol Is this a current diagnosis for this admission?: Yes Plan: Will discontinue Haldol. (8) DVT prophylaxis Is this a current diagnosis for this admission?: Yes Plan: SCDs - Time Time Spent with patient: 15-24 minutes
[2017-01-01] MEDS: PIPERACILLIN SODIUM/TAZOBACTAM 3.375 GM in NORMAL SALINE 100 ML IV SCH ×2 (17:38→23:08)
[2017-01-01 17:59] LABS: CREATININE RESULT 0.95 mg/dL (0.52-1.25)
--- NOTE | 2017-01-01 18:24 | RADIOLOGY REPORT (SQ) ---
EXAM DESCRIPTION: CHEST SINGLE VIEW COMPLETED DATE/TIME: 01/01/2017 5:31 pm REASON FOR STUDY: Cough COMPARISON: 12/29/2016 EXAM PARAMETERS: NUMBER OF VIEWS: One view. TECHNIQUE: Single frontal radiographic view of the chest acquired. RADIATION DOSE: NA LIMITATIONS: None. FINDINGS: LUNGS AND PLEURA: Persistent minimal opacity at the left base. Possible left effusion. R ight lung is clear. MEDIASTINUM AND HILAR STRUCTURES: No masses. Contour normal. HEART AND VASCULAR STRUCTURES: Heart enlarged without overt failure. BONES: Sternal wires. HARDWARE: None in the chest. OTHER: No other significant finding. IMPRESSION: Persistent left basilar opacity and left effusion. Cardiac enlargement without overt failure. TECHNICAL DOCUMENTATION: JOB ID: [id number]
[2017-01-02] MEDS: IPRATROPIUM/ALBUTEROL 0.5-2.5 MG/3 ML AMPUL NEB SCH ×4 (01:28→20:01)
[2017-01-02] MEDS: VANCOMYCIN HCL 1,000 MG in DEXTROSE 5%-WATER 250 ML IV SCH ×2 (02:29→10:40)
[2017-01-02] MEDS: LORAZEPAM 1 MG TABLET PO SCH ×3 (05:19→21:25)
[2017-01-02] MEDS: CLONIDINE HCL 0.1 MG TABLET PO SCH ×3 (05:20→21:24)
[2017-01-02] MEDS: PIPERACILLIN SODIUM/TAZOBACTAM 3.375 GM in NORMAL SALINE 100 ML IV SCH ×4 (05:20→23:49)
--- NOTE | 2017-01-02 05:24 | Progress Note ---
Provider Note Provider Note: 01/02/2017, 0517: Patient resting quietly in bed, no obvious distress.
[2017-01-02 07:25] LABS: HEMATOCRIT 26.9 % (37.9-51.0); HEMOGLOBIN 9.1 g/dL (13.5-17.0); HGB HCT DIFFERENCE 0.4; MEAN CORPUSCULAR HGB CONC 33.7 g/dL (32.0-36.0); MEAN CORPUSCULAR VOLUME 68 fl (80-97); RED BLOOD COUNT 3.95 10^6/uL (4.35-5.55); RED CELL DISTRIBUTION WIDTH 14.6 % (11.5-14.0); WHITE BLOOD COUNT 10.7 10^3/uL (4.0-10.5)
[2017-01-02] MEDS: METOPROLOL TARTRATE 25 MG TABLET PO SCH ×2 (10:42→21:25)
[2017-01-02] MEDS: ACETAMINOPHEN 325 MG TABLET PO PRN (12:03)
--- NOTE | 2017-01-02 14:43 | PDOC PROGRESS REPORT ---
Physical Exam Vital Signs: Temp Pulse Resp BP Pulse Ox 101.5 F H 83 20 163/82 H 94 01/02/17 11:37 01/02/17 14:00 01/02/17 14:00 01/02/17 11:37 01/02/17 14:00 Intake & Output 01/01/17 01/02/17 01/03/17 06:59 06:59 06:59 Intake Total 2067 2478 Output Total 1100 1730 Balance 967 748 Weight 78.4 kg 79.9 kg Results Laboratory Results: 01/02/17 07:00 01/01/17 17:30 01/01/17 01/02/17 17:30 07:00 WBC 10.7 H RBC 3.95 L Hgb 9.1 L Hct 26.9 L MCV 68 L MCH 23.0 L MCHC 33.7 RDW 14.6 H Plt Count 376 Creatinine 0.95 Est GFR ( Amer) > 60 Est GFR (Non-Af Amer) > 60 Impressions: Head CT 12/29/16 10:22 IMPRESSION: Limited study. No acute intracranial changes EVIDENCE OF ACUTE STROKE: NO. Abdomen/Pelvis CT 12/29/16 11:27 IMPRESSION: No acute findings over the chest abdomen or pelvis Cervical Spine CT 12/29/16 11:27 IMPRESSION: Multilevel central and foraminal stenosis. No acute changes. Chest CT 12/29/16 11:27 IMPRESSION: No acute findings over the chest abdomen or pelvis KUB X-Ray 12/30/16 06:00 IMPRESSION: Persistent large amount of stool in the ascending colon. Distended small bowel loops, suspect a functional obstruction due to right- sided colon constipation Chest X-Ray 01/01/17 00:00 IMPRESSION: Persistent left basilar opacity and left effusion. Cardiac enlargement without overt failure. Assessment & Plan - Diagnosis (1) Sepsis Qualifiers: Sepsis type: sepsis due to unspecified organism Qualified Code(s): A41.9 - Sepsis, unspecified organism Is this a current diagnosis for this admission?: Yes Plan: Secondary to strep anginosis most likely secondary to aspiration: Will continue Zosyn will narrow treatment in next few days. Will check 2 D Echo. (2) Aspiration pneumonia Is this a current diagnosis for this admission?: Yes Plan: We will continue Zosyn (3) Acute cystitis Is this a current diagnosis for this admission?: Yes Plan: Secondary to Aerococcus Urinae POA: We will continue Zosyn (4) Acute chemical pneumonitis Is this a current diagnosis for this admission?: Yes Plan: CXR and CT of chest neg at time of admission. Repeat chest x-ray on 01 January demonstrates left basilar opacity with left pleural effusion. We will continue Zosyn (5) Dysphagia Is this a current diagnosis for this admission?: Yes Plan: Patient n.p.o. Speech therapy contacted physician directly to report that patient had evidence of aspiration of thin and thickened liquids on modified barium swallow study. Plan will be to adjust any sedative medications to see if patient's mentation improves which would lead to improvement and swallowing. (6) Vomiting Qualifiers: Vomiting type: unspecified Is this a current diagnosis for this admission?: Yes Plan: Resolved (7) Constipation Qualifiers: Constipation type: unspecified constipation type Qualified Code(s): K59.00 - Constipation, unspecified Is this a current diagnosis for this admission?: Yes Plan: Resolved (8) Leukocytosis Is this a current diagnosis for this admission?: Yes Plan: Secondary to sepsis: Resolving (9) Agitation requiring sedation protocol Is this a current diagnosis for this admission?: Yes Plan: Improving (10) DVT prophylaxis Is this a current diagnosis for this admission?: Yes Plan: SCDs - Time Time Spent with patient: 15-24 minutes - We will have Hellen lee
--- NOTE | 2017-01-02 15:16 | ST Inp Modified Barium Swallow ---
Medical Diagnosis - Medical Diagnoses Medical Diagnosis Description & ICD-10 Code(s): acute chemical pneumonitis ST Inpatient MBS - General Date: 01/02/17 - History History Obtained From: Other - EMR -: Medical - per EMR, PMH includes: hyperlipidemia, HTN, COPD, DMI,II, GERD, depression, personality disorder, schizoaffective disorder, anemia Medications: Medications Reviewed Allergies: Refer to medical record - Subjective Current Nutritional Means: NPO Current Symptoms: Coughing, Pneumonia Pain: 0/5 - Objective Assessment: Upright, Left Lateral - Food Trials Food Trials Used: Thin liquids, Pureed The Patient: fed by ST - Assessment Labial Function: Within Functional Limits Lingual Function: Within Functional Limits Mandibular Function: Within Functional Limits - Pharyngeal Stage Decreased Laryngeal Elevation: Yes Reduced Pressure Generation: Yes Pre-Swallowing Pooling in Valleculae: Moderate Multiple Swallows With: Ineffective Clearance Post Swallow Residuals in Valleculae: Moderate Post Swallow Residuals: throughout pharynx Pahryngeal Stage Comments: Patient was seen to have signficant residue throughout pharyngeal cavity post swallow. Patient refused to perform liquid wash to attempt to clear residue. - Impression/Summary Laryngeal Penetration: Yes, Delayed cough, after swallow Tracheal Aspiration: yes - for thin liquid and pudding trials, delayed cough, after swallow Patient Presents With: Pharyngeal stage dysph., Severe Risk of Aspiration: Severe Risk of Nutritional Compromise: Moderate Risk Due To: aspiration of thin liquid and puree texture seen during MBSS - Recommendations NPO: yes Dysphagia Therapy with POULTRY CUTTER: Follow Up PRN - Physician suggested follow up MBSS in a few days due to possible complications from medications. - Time Total Time: 20 Total Timed Minutes: 20
[2017-01-02] MEDS: DEXTROSE 5%-NORMAL SALINE 1,000 ML IV PRN (16:09)
--- NOTE | 2017-01-02 19:06 | RADIOLOGY REPORT (SQ) ---
EXAM DESCRIPTION: RADHA SWALLOW COMPLETED DATE/TIME: 01/02/2017 9:19 am REASON FOR STUDY: COUGHING WHILE EATTING A40.9 STREPTOCOCCAL SEPSIS, UNSPECIFIED COMPARISON: None. TECHNIQUE: Videofluoroscopic swallowing examination was performed in conjunction with speech patholo gy. Videofluoroscopic imaging was obtained and reviewed and these are the findings: RADIATION DOSE: Fluoro time 1.41 minutes 1 images saved to PACS. LIMITATIONS: None FINDINGS: The patient was brought into the fluoro room and placed upright on a modified barium swall ow chair. The patient was then given multiple consistencies mixed with barium to swallow under live fluoroscopic video guidance. According to the Speech Pathologist there was trace aspiration seen wit h thin consistency as well as residuals from pureed. Please refer to the speech pathology report for further details and recommendations. IMPRESSION: TRACE ASPIRATION SEEN WITH THIN AND PUREED CONSISTENCIES.PLEASE SEE SPEECH PATHOLOGIST Jayla MCGILL FOR OTHER FINDINGS AND RECOMMENDATIONS. COMMENT: None Quality ID [id number]: Final reports for procedures using fluoroscopy that document radiation exposure morena aminta, or exposure time and number of fluorographic images (if radiation exposure indices are not avail able) TECHNICAL DOCUMENTATION: JOB ID: [id number] [employer]- All Rights Reserved
[2017-01-02] MEDS ORDERED: HALOPERIDOL 2 MG TABLET PO SCH (22:00)
[2017-01-03] MEDS: IPRATROPIUM/ALBUTEROL 0.5-2.5 MG/3 ML AMPUL NEB SCH ×4 (02:10→19:44)
[2017-01-03] MEDS: ACETAMINOPHEN 325 MG TABLET PO PRN ×2 (04:18→19:43)
[2017-01-03] MEDS: CLONIDINE HCL 0.1 MG TABLET PO SCH ×3 (05:38→21:35)
[2017-01-03] MEDS: DEXTROSE 5%-NORMAL SALINE 1,000 ML IV PRN (05:39)
[2017-01-03] MEDS: PIPERACILLIN SODIUM/TAZOBACTAM 3.375 GM in NORMAL SALINE 100 ML IV SCH ×3 (05:39→18:58)
[2017-01-03] MEDS: LORAZEPAM 1 MG TABLET PO SCH ×3 (05:39→21:35)
--- NOTE | 2017-01-03 05:55 | Progress Note ---
Provider Note Provider Note: 01/03/17: 0530--Went to patient's bedside. Patient resting quietly, no obvious distress. Nursing staff noted possible dislocation of right shoulder earlier this am while turning patient during bed bath. No evidence of dislocation at present time. Shoulder films; Ortho consult. Discussed with day hospitalist team.
--- NOTE | 2017-01-03 06:54 | RADIOLOGY REPORT (SQ) ---
EXAM DESCRIPTION: SHOULDER RIGHT 2 OR MORE VIEWS COMPLETED DATE/TIME: 01/03/2017 6:34 am REASON FOR STUDY: ?? dislocation A40.9 STREPTOCOCCAL SEPSIS, UNSPECIFIED COMPARISON: None. NUMBER OF VIEWS: Three views. 4 images. TECHNIQUE: Internal rotation, external rotation, and Y view images acquired of the right shoulder. LIMITATIONS: None. FINDINGS: MINERALIZATION: Normal. BONES: No acute fracture or dislocation. No worrisome bone lesions. Chronic unfused fracture site o f the right distal clavicular diametaphysis with mild inferior displacement and a 3.2 cm distal ossic ular fragment. JOINTS: No dislocation. VISUALIZED LUNGS AND RIBS: No pneumothorax. No rib fracture. SOFT TISSUES: No radiopaque foreign body. OTHER: No other significant finding. IMPRESSION: No acute findings. Chronic right distal clavicular fracture. TECHNICAL DOCUMENTATION: JOB ID: [id number] [employer]- All Rights Reserved
--- NOTE | 2017-01-03 09:08 | PDOC CONSULTATION ---
History of Present Illness Admission Date/PCP: 12/30/16 10:16 CHARLENE ANDERSON MD History of Present Illness: CRISTIAN HAM is a 71 year old male presents to our facility from [facility]. Patient's care provider states that patient fell at the [facility] off the front porch. Patient has nasal abrasion and abrasion to top of head. Care provider from [facility] reports that patient has not been acting himself she states that he has been vomiting overnight. ER reports that patient wants to eat but when he does he vomits. Patient's care provider reports that patient has been coughing and experiencing changes in breathing since vomiting overnight. Patient is a poor historian due to mental illness. Most recently nursing staff noted deformity of his right shoulder during bathing. He denies any pain however patient is poor historian. According to the nursing staff there is no other mechanism of injury of note. Past Medical History Cardiac Medical History: Reports: Hyperlipidema, Hypertension Comment Only: Atrial Fibrillation - IRREGULAR HEARTBEAT Pulmonary Medical History: Reports: Chronic Obstructive Pulmonary Disease (COPD) Denies: Tuberculosis - unknown Endocrine Medical History: Reports: Diabetes Mellitus Type 1, Diabetes Mellitus Type 2 GI Medical History: Reports: Gastroesophageal Reflux Disease Psychiatric Medical History: Reports: Depression, Personality Disorder - Dependent personality disorder, Schizoaffective Disorder Hematology: Reports: Anemia Social History Smoking Status: Unknown if Ever Smoked Frequency of Alcohol Use: None Hx Recreational Drug Use: No Drugs: None Hx Prescription Drug Abuse: No Family History Family History: Reviewed & Not Pertinent Parental Family History Reviewed: No Children Family History Reviewed: No Sibling(s) Family History Reviewed.: No Medication/Allergy Home Medications: Acetaminophen [Tylenol] 325 mg PO Q4HP PRN 12/29/16 Aspirin [Aspirin 81 mg Chewable Tablet] 81 mg PO DAILY 12/29/16 Benztropine Mesylate [Cogentin 1 mg Tablet] 1 mg PO Q8 12/29/16 Cholecalciferol (Vitamin D3) [Vitamin D3 1000 Unit Tablet] 1,000 unit PO DAILY 12/29/16 Clonidine HCl [Catapres 0.3 mg Tablet] 0.3 mg PO Q8 12/29/16 Dextromethorphan HBr [Tussin Cough] 5 ml PO Q6HP PRN 12/29/16 Docusate Sodium [Colace 100 mg Capsule] 100 mg PO DAILY 12/29/16 Doxepin HCl 100 mg PO QHS 12/29/16 Glycerin/Witch Aditi [place] [Tucks Medicated Pads] 1 each TP DAILY 12/29/16 Haloperidol [Haldol 5 mg Tablet] 5 mg PO Q8 12/29/16 Hydralazine HCl 100 mg PO Q8HP PRN 12/29/16 Lamotrigine [Lamictal] 25 mg PO Q12 12/29/16 Lamotrigine [Lamictal] 150 mg PO Q12 12/29/16 Loperamide HCl [Loperamide] 2 mg PO DAILYP PRN 12/29/16 Loratadine [Claritin] 10 mg PO DAILY 12/29/16 Lorazepam 2 mg PO Q8 12/29/16 Magnesium Hydroxide [Milk of Magnesia 30 ml Udcup] 30 ml PO HSP PRN 12/29/16 Melatonin 10 mg PO QHS 12/29/16 Metformin HCl [Glucophage 500 mg Tablet] 500 mg PO DAILY 12/29/16 Multivitamin [One-A-Day Essential] 1 each PO DAILY 12/29/16 Neomycin/Bacitracin/Polymyxinb [Triple Antibiotic Ointment] 1 each TP DAILYP PRN 12/29/16 Nifedipine [Nifedipine ER] 90 mg PO Q12 12/29/16 Olanzapine [Zyprexa] 15 mg PO Q8 12/29/16 Omeprazole 20 mg PO DAILY 12/29/16 Polyethylene Glycol 3350 [Miralax Powder 17 gm/Packet] 1 packet PO DAILY Tamsulosin HCl [Flomax 0.4 mg Cap.sr] 0.4 mg PO DAILY 12/29/16 Valsartan [Diovan 160 mg Tablet] 160 mg PO QPM 12/29/16 Allergies/Adverse Reactions: No Known Allergies Allergy (Verified 12/29/16 18:45) Review of Systems ROS unobtainable: Due to mental status Physical Exam Vital Signs: Temp Pulse Resp BP Pulse Ox 99.1 F 73 22 H 163/79 H 95 01/03/17 05:34 01/03/17 08:05 01/03/17 08:05 01/03/17 04:00 01/03/17 08:05 Intake & Output 01/02/17 01/03/17 01/04/17 06:59 06:59 06:59 Intake Total 6674 1949 Output Total 1730 630 Balance 748 1319 Weight 79.9 kg 77.6 kg General appearance: PRESENT: no acute distress, disheveled Head exam: PRESENT: atraumatic, normocephalic Eye exam: PRESENT: conjunctival injection, EOMI Mouth exam: PRESENT: dry mucosa Teeth exam: PRESENT: poor dentation Respiratory exam: PRESENT: wheezes Pulses: PRESENT: normal radial pulses Vascular exam: PRESENT: normal capillary refill GI/Abdominal exam: PRESENT: soft Musculoskeletal exam: PRESENT: other - Bilateral shoulders: Patient demonstrates no tenderness to palpation. Full passive motion without discomfort. No evidence of deformity. No swelling or ecchymosis appreciated. Patient demonstrates full elbow range of motion. Patient unable to follow commands to obtain full shoulder examination Neurological exam: PRESENT: alert, awake, other - Patient is oriented to time place and situation. Psychiatric exam: PRESENT: flat affect Results Laboratory Results: 01/02/17 07:00 01/01/17 17:30 Impressions: Head CT 12/29/16 10:22 IMPRESSION: Limited study. No acute intracranial changes EVIDENCE OF ACUTE STROKE: NO. Abdomen/Pelvis CT 12/29/16 11:27 IMPRESSION: No acute findings over the chest abdomen or pelvis Cervical Spine CT 12/29/16 11:27 IMPRESSION: Multilevel central and foraminal stenosis. No acute changes. Chest CT 12/29/16 11:27 IMPRESSION: No acute findings over the chest abdomen or pelvis KUB X-Ray 12/30/16 06:00 IMPRESSION: Persistent large amount of stool in the ascending colon. Distended small bowel loops, suspect a functional obstruction due to right- sided colon constipation Chest X-Ray 01/01/17 00:00 IMPRESSION: Persistent left basilar opacity and left effusion. Cardiac enlargement without overt failure. Modified Barium Swallow 01/02/17 00:00 IMPRESSION: TRACE ASPIRATION SEEN WITH THIN AND PUREED CONSISTENCIES.PLEASE SEE SPEECH PATHOLOGIST REPORT FOR OTHER FINDINGS AND RECOMMENDATIONS. Shoulder X-Ray 01/03/17 00:00 IMPRESSION: No acute findings. Chronic right distal clavicular fracture. Status: Image reviewed by me - I have reviewed patient's radiographs which demonstrate chronic bilateral distal clavicle fractures no evidence of glenohumeral dislocation or associated fracture. Assessment & Plan - Diagnosis (1) Fracture, clavicle Qualifiers: Encounter type: initial encounter Clavicle location: lateral end Fracture type: closed Fracture alignment: displaced Laterality: right Qualified Code(s): S42.031A - Displaced fracture of lateral end of right clavicle, initial encounter for closed fracture Is this a current diagnosis for this admission?: Yes Plan: Patient at some point in time sustained bilateral distal clavicle fractures currently there is no evidence of pain or discomfort patient is unable to communicate to determine chronicity of these fractures. Furthermore I am unable to elicit discomfort on examination today thus patient will continue regular activity as tolerated. Patient may follow-up as needed.
[2017-01-03] MEDS ORDERED: (PENDING PHARMACY ID) (Lamotrigine [Lamictal] 150 MG) PO SCH (10:00)
[2017-01-03] MEDS ORDERED: OLANZAPINE 5 MG PO SCH (10:00)
[2017-01-03] MEDS ORDERED: (PENDING PHARMACY ID) (Lamotrigine [Lamictal] 25 MG) PO SCH (10:00)
[2017-01-03] MEDS: TAMSULOSIN HCL 0.4 MG CAP.SR.24H PO SCH (11:32)
[2017-01-03] MEDS: POLYETHYLENE GLYCOL 3350 POWDER 17 GM/1 PACKET PO SCH (11:32)
[2017-01-03] MEDS: ASPIRIN 81 MG TABLET, CHEWABLE PO SCH (11:33)
[2017-01-03] MEDS: METOPROLOL TARTRATE 25 MG TABLET PO SCH ×2 (11:33→21:35)
[2017-01-03] MEDS: LAMOTRIGINE 100 MG TABLET PO SCH ×2 (11:35→21:35)
[2017-01-03] MEDS: LAMOTRIGINE 25 MG TAB.CHEW PO SCH ×2 (11:35→21:35)
[2017-01-03] MEDS ORDERED: NA PHOS,M-B/NA PHOS,DI-BA (ADULT) 133 ML ENEMA PR ONE (13:30)
[2017-01-03] MEDS: OLANZAPINE 5 MG TABLET PO SCH ×2 (13:58→21:35)
[2017-01-03] MEDS ORDERED: OLANZAPINE 15 MG PO SCH (14:00)
[2017-01-03] MEDS ORDERED: (PENDING PHARMACY ID) (Lorazepam [Lorazepam] 2 MG) PO SCH (14:00)
[2017-01-03] MEDS ORDERED: BENZTROPINE MESYLATE 1 MG TABLET PO SCH (14:00)
[2017-01-03] MEDS ORDERED: BISACODYL 10 MG SUPP.RECT PR ONE (14:38)
[2017-01-03] MEDS ORDERED: NICOTINE 14 MG/24 HR PATCH.TD24 TD PRN (15:41)
--- NOTE | 2017-01-03 15:44 | PDOC PROGRESS REPORT ---
Subjective Progress Note for:: 01/03/17 Subjective:: Patient reports to me that he is hungry. Though pleasant and cooperative he is minimally able to participate. He is unable to complete review of systems secondary to dementia. Physical Exam Vital Signs: Temp Pulse Resp BP Pulse Ox 98.2 F 76 16 166/89 H 96 01/03/17 11:41 01/03/17 14:01 01/03/17 14:01 01/03/17 11:41 01/03/17 14:01 Intake & Output 01/02/17 01/03/17 01/04/17 06:59 06:59 06:59 Intake Total 2478 1949 Output Total 1730 630 Balance 748 1319 Weight 79.9 kg 77.6 kg Exam: General: Awake alert and answers some questons and follows some commands, no acute respiratory distress HEENT: AT/NC, PERRL, EOMI, oropharynx is moist, pink, no scleral icterus, no conjunctival injection Neck: No JVD, trachea midline Chest: occasional rhonchi bilaterally CV: Regular rate and rhythm, normal S1 and S2, no rub or gallop Abdomen: Soft, nontender to palpation, nondistended, hypoactive bowel sounds; no rebound, rigidity, or guarding Extremities: No cyanosis, clubbing or edema Neuro: moves all extremities Psych: flat affect, pleasant mood Results Laboratory Results: 01/02/17 07:00 01/01/17 17:30 Impressions: Head CT 12/29/16 10:22 IMPRESSION: Limited study. No acute intracranial changes EVIDENCE OF ACUTE STROKE: NO. Abdomen/Pelvis CT 12/29/16 11:27 IMPRESSION: No acute findings over the chest abdomen or pelvis Cervical Spine CT 12/29/16 11:27 IMPRESSION: Multilevel central and foraminal stenosis. No acute changes. Chest CT 12/29/16 11:27 IMPRESSION: No acute findings over the chest abdomen or pelvis KUB X-Ray 12/30/16 06:00 IMPRESSION: Persistent large amount of stool in the ascending colon. Distended small bowel loops, suspect a functional obstruction due to right- sided colon constipation Chest X-Ray 01/01/17 00:00 IMPRESSION: Persistent left basilar opacity and left effusion. Cardiac enlargement without overt failure. Modified Barium Swallow 01/02/17 00:00 IMPRESSION: TRACE ASPIRATION SEEN WITH THIN AND PUREED CONSISTENCIES.PLEASE SEE SPEECH PATHOLOGIST REPORT FOR OTHER FINDINGS AND RECOMMENDATIONS. Shoulder X-Ray 01/03/17 00:00 IMPRESSION: No acute findings. Chronic right distal clavicular fracture. Assessment & Plan - Diagnosis (1) Bacteremia Is this a current diagnosis for this admission?: Yes Plan: Patient with Streptococcus and stenosis of the blood. Have concerns that patient may have endocarditis as he has a prior aortic valve replacement. Pending 2D echo and will likely need to transfer for JOHN. Place PICC line for 14 days of Rocephin, but may need longer for endocarditis if found. (2) Sepsis Qualifiers: Sepsis type: sepsis due to unspecified organism Qualified Code(s): A41.9 - Sepsis, unspecified organism Is this a current diagnosis for this admission?: Yes Plan: Sepsis secondary to streptococcus anginosus in the blood and aerococcus in the urine Concern for underlying endocarditis with patient's history of aortic valve replacement (3) Acute chemical pneumonitis Is this a current diagnosis for this admission?: Yes Plan: Concerned patient may have suffered from aspiration secondary to oversedation as patient is on quite a bit of antipsychotic medication as an outpatient. Continue patient on Zosyn for atypical gram-negative coverage. Unable to obtain sputum specimen secondary to cooperation . Continue nebulized treatments (4) Acute cystitis Qualifiers: Hematuria presence: without hematuria Qualified Code(s): N30.00 - Acute cystitis without hematuria Is this a current diagnosis for this admission?: Yes Plan: Patient with Aerococcus UTI patient started on Rocephin 2 g IV daily (5) Agitation requiring sedation protocol Is this a current diagnosis for this admission?: Yes Plan: I have quite a few concerns regarding patient's outpatient psychiatry regimen. (6) Aspiration pneumonia Is this a current diagnosis for this admission?: Yes (7) Constipation Qualifiers: Constipation type: unspecified constipation type Qualified Code(s): K59.00 - Constipation, unspecified Is this a current diagnosis for this admission?: Yes Plan: continue cathartics (8) Dysphagia Qualifiers: Dysphagia type: unspecified Qualified Code(s): R13.10 - Dysphagia, unspecified Is this a current diagnosis for this admission?: Yes Plan: Patient to have repeat MBS on Monday Continue speech therapy (10) Fracture, clavicle Qualifiers: Encounter type: subsequent encounter Clavicle location: lateral end Fracture type: closed Fracture alignment: displaced Laterality: right Fracture healing: with malunion Qualified Code(s): S42.031P - Displaced fracture of lateral end of right clavicle, subsequent encounter for fracture with malunion Is this a current diagnosis for this admission?: Yes Plan: This is chronic and there is nothing to do. We appreciate ortho imput (11) Schizo-affective schizophrenia, chronic condition Is this a current diagnosis for this admission?: Yes Plan: Resume and Haldol. (12) Acute kidney injury superimposed on chronic kidney disease Is this a current diagnosis for this admission?: Yes Plan: Improved (13) Acute metabolic encephalopathy Is this a current diagnosis for this admission?: Yes (14) Chronic obstructive lung disease Is this a current diagnosis for this admission?: Yes Plan: nebulized treatments (15) Diabetes mellitus type 2 Is this a current diagnosis for this admission?: Yes Plan: Liberalize diet and stop Accu-Cheks. Patient has had exceptional blood glucose control while here. (16) Tobacco abuse Is this a current diagnosis for this admission?: Yes Plan: Add nicotine patch (17) DVT prophylaxis Is this a current diagnosis for this admission?: Yes - Time Time Spent with patient: 25-34 minutes Medications reviewed and adjusted accordingly: Yes
[2017-01-03] MEDS ORDERED: CEFTRIAXONE 2 GM/D5W RTU 2 GM/50 ML RTUPB IV SCH (18:00)
[2017-01-03] MEDS: VALSARTAN 160 MG TABLET PO SCH (18:58)
--- NOTE | 2017-01-03 19:37 | XCELERA REPORT ---
[address] [address] Transthoracic Echocardiogram Report Name: CRISTIAN HAM Age: 71 yrs Gender: Male : 1945 Patient Status: Inpatient Patient Location: [address] [place] [address] Study Date: 01/03/2017 08:56 AM Height: 70 in Weight: 176 lb BSA: 2.0 m2 Procedure: A complete two-dimensional transthoracic echocardiogram was performed (2D, M-mode, spectral and color flow Doppler). The study was technically adequate with some images being suboptimal in quality. Reason For Study: Bacteremia Ordering Physician: EDWIN LIN Performed By: Lyla Hansen Interpretation Summary The left ventricular ejection fraction is normal. There is mild concentric left ventricular hypertrophy. The left ventricle is grossly normal size. Doppler measurements suggest pseudonormalized left ventricular relaxation, which is associated with grade II/IV or mild to moderate diastolic dysfunction Wall motion cannot be accurately commented on, but no definite regional wall motion abnormalities noted. The right ventricular systolic function is normal. The left atrium is mildly dilated. The right atrium is normal in size There is no mitral valve stenosis. There is a trace amount of mitral regurgitation There is mild aortic stenosis There is a peak gradient of 30-35, mean 20 mm of Hg. No aortic regurgitation is present. There is a trace to mild amount of tricuspid regurgitation There is mild pulmonary hypertension by echo Right ventricular systolic pressure is estimated to be elevated at 30- 40mmHg. No definite vegetations noted but if clinical suspicion is high, then consider JOHN and multiple blood cultures. MMode/2D Measurements & Calculations RVDd: 4.4 cm LVIDd: 4.8 cmFS: 45.1 % Ao root diam: 3.3 cm IVSd: 1.1 cm LVIDs: 2.6 cmEDV(Teich): 107.9 ml LVPWd: 1.1 cmESV(Teich): 25.5 ml Ao root area: 8.4 cm2 EF(Teich): 76.3 % LVOT diam: 2.2 cm LVOT area: 3.8 cm2 Doppler Measurements & Calculations MV E max demetrius: MV dec slope: Ao V2 max: LV V1 max P.8 cm/sec 495.9 cm/sec2 299.3 cm/sec 6.2 mmHg MV A max demetrius: MV dec time: Ao max PG: LV V1 mean P.2 cm/sec 0.20 sec 35.8 mmHg 3.4 mmHg MV E/A: 1.7 Ao V2 mean: LV V1 max: 209.3 cm/sec 124.9 cm/sec Ao mean PG: LV V1 mean: 19.9 mmHg 85.3 cm/sec Ao V2 VTI: 59.7 cm LV V1 VTI: 26.3 cm AKIL(I,D): 1.7 cm2 AKIL(V,D): 1.6 cm2 SV(LVOT): 100.5 mlPA V2 max: PI end-d demetrius: TR max demetrius: 98.5 cm/sec 111.5 cm/sec 277.9 cm/sec PA max P.9 mmHg TR max P.0 mmHg Left Ventricle The left ventricle is grossly normal size. There is mild concentric left ventricular hypertrophy. The left ventricular ejection fraction is normal. Doppler measurements suggest pseudonormalized left ventricular relaxation, which is associated with grade II/IV or mild to moderate diastolic dysfunction. Wall motion cannot be accurately commented on, but no definite regional wall motion abnormalities noted. Right Ventricle The right ventricle is grossly normal size. There is normal right ventricular wall thickness. The right ventricular systolic function is normal. Atria The right atrium is normal in size. The left atrium is mildly dilated. Interarterial septum not well visualized and not well dopplered. Cannot comment on ASD/PFO presence. Mitral Valve The mitral valve is grossly normal. There is no mitral valve stenosis. There is a trace amount of mitral regurgitation. Aortic Valve The aortic valve is moderately calcified. There is mild aortic stenosis. There is a peak gradient of 30-35, mean 20 mm of Hg. No aortic regurgitation is present. Tricuspid Valve The tricuspid valve is not well visualized, but is grossly normal. There is no tricuspid stenosis. There is a trace to mild amount of tricuspid regurgitation. There is mild pulmonary hypertension by echo. Right ventricular systolic pressure is estimated to be elevated at 30-40mmHg. Pulmonic Valve The pulmonic valve is not well visualized. Great Vessels The aortic root is not well visualized but is probably normal size. The inferior vena cava appeared normal and decreased > 50% with respiration (RAP 5-10 mmHg). Effusions There is no pericardial effusion. Incidental Findings No definite vegetations noted but if clinical suspicion is high, then consider JOHN and multiple blood cultures. : EDWIN LIN > Sunshine Cisneros
[2017-01-03] MEDS ORDERED: SENNOSIDES/DOCUSATE 8.6-50 MG 1 EACH TABLET PO SCH (22:00)
[2017-01-04] MEDS: IPRATROPIUM/ALBUTEROL 0.5-2.5 MG/3 ML AMPUL NEB SCH ×4 (02:10→20:06)
[2017-01-04 05:04] LABS: ABSOLUTE BASOPHILS # (AUTO) 0.1 10^3/uL (0.0-0.2); ABSOLUTE EOSINOPHILS # (AUTO) 0.2 10^3/uL (0.0-0.6); ABSOLUTE LYMPHOCYTES (AUTO) 1.5 10^3/uL (0.5-4.7); ABSOLUTE MONOCYTES (AUTO) 1.4 10^3/uL (0.1-1.4); ABSOLUTE NEUT (AUTO) 12.3 10^3/uL (1.7-8.2); BASOPHILS % (AUTO) 0.6 % (0-2); EOSINOPHILS % (AUTO) 1.2 % (0-6); HEMATOCRIT 29.5 % (37.9-51.0); HEMOGLOBIN 9.7 g/dL (13.5-17.0); HGB HCT DIFFERENCE -0.4; LYMPHOCYTES % (AUTO) 9.6 % (13-45); MEAN CORPUSCULAR HEMOGLOBIN 22.5 pg (27.0-33.4); MEAN CORPUSCULAR HGB CONC 32.9 g/dL (32.0-36.0); MEAN CORPUSCULAR VOLUME 68 fl (80-97); MONOCYTES % (AUTO) 9.2 % (3-13); RED BLOOD COUNT 4.32 10^6/uL (4.35-5.55); RED CELL DISTRIBUTION WIDTH 14.7 % (11.5-14.0); SEGMENTED NEUTROPHILS % (AUTO) 79.4 % (42-78); WHITE BLOOD COUNT 15.5 10^3/uL (4.0-10.5)
[2017-01-04 05:18] LABS: ANION GAP 10 (5-19); BLOOD UREA NITROGEN 21 mg/dL (7-20); CALCIUM 9.1 mg/dL (8.4-10.2); CARBON DIOXIDE 28 mmol/L (22-30); CHLORIDE 108 mmol/L (98-107); CREATININE RESULT 1.52 mg/dL (0.52-1.25); GLUCOSE 119 mg/dL (75-110); MAGNESIUM 2.4 mg/dL (1.6-2.3); PHOSPHORUS 3.9 mg/dL (2.5-4.5); POTASSIUM 3.5 mmol/L (3.6-5.0); SODIUM 145.8 mmol/L (137-145)
[2017-01-04] MEDS: CLONIDINE HCL 0.1 MG TABLET PO SCH ×3 (06:29→22:55)
[2017-01-04] MEDS: OLANZAPINE 5 MG TABLET PO SCH ×3 (06:29→22:56)
[2017-01-04] MEDS: PIPERACILLIN SODIUM/TAZOBACTAM 3.375 GM in NORMAL SALINE 100 ML IV SCH ×6 (06:29→23:53)
[2017-01-04] MEDS: LORAZEPAM 1 MG TABLET PO SCH ×3 (06:29→22:56)
[2017-01-04] MEDS ORDERED: HALOPERIDOL LACTATE INJ 5 MG/1 ML VIAL ONE (09:22)
[2017-01-04] MEDS ORDERED: HYDROMORPHONE HCL INJ/PF 2 MG/ML AMPULE ONE (09:23)
[2017-01-04] MEDS ORDERED: LORAZEPAM INJ 2 MG/1 ML VIAL IV ONE (09:45)
[2017-01-04] MEDS ORDERED: HALOPERIDOL LACTATE INJ 5 MG/1 ML VIAL IV ONE (09:45)
--- NOTE | 2017-01-04 10:22 | RADIOLOGY REPORT (SQ) ---
EXAM DESCRIPTION: PICC INSERTION; FLUORO/CV PLACEMENT; U/S GUIDE FOR VASCULAR ACCESS COMPLETED DATE/TIME: 01/04/2017 10:08 am REASON FOR STUDY: need for iv abx, strep anginosus bacteremia; IV ABX A40.9 STREPTOCOCCAL SEPSIS, U NSPECIFIED COMPARISON: AP chest 01/01/2017 FLUOROSCOPY TIME: 1 minutes 5 seconds 1 digital chest fluoro image, 1 ultrasound images saved to PACS. TECHNIQUE: Fluoroscopic and ultrasound guided PICC placement. LIMITATIONS: None. PROCEDURE: After written consent and assessment were obtained, the patient was brought into the fluo roscopy room and place supine on the table. Ultrasound was used on the patient's left arm for PICC a ccess. The left arm was prepped and draped in a sterile fashion along with the ultrasound probe. The entry site was anesthetized with 1% lidocaine. A 21 gauge 7 cm needle was advanced through the skin a nd into the basilic vein under live ultrasound guidance. An ultrasound image was saved to PACS confi rming access site. A .018 guide wire was then inserted through the needle and into the venous system . The needle was the removed and an 11 blade scalpel was used to make a 1cm skin incision. A 5 fr pe el-away sheath was advanced over the wire and into the venous system. A measurement was then made usi ng the existing wire and live fluoroscopic guidance. The wire was then removed and the trimmed. The P ICC was advanced through the peel-away sheath and into the venous system. The peel-away sheath was re moved and the catheter was adhered to the patients arm with a stat lock. The catheter was then aspira gila and flushed and a sterile bandage was placed over the access site. A fluoroscopic spot image was saved to PACS confirming the catheter tip within the superior vena cava. IMPRESSION: SUCCESSFUL PLACEMENT OF A 5 FR DUAL LUMEN 42 CM PICC IN THE LEFT BASILIC VEIN. COMMENT: Patient medication list reviewed: Yes- Quality ID# [id number]:Eligible professional attests to doc umenting in the medical record they obtained, updated, or reviewed the patient's current medications. . Quality ID 145: Final reports for procedures using fluoroscopy that document radiation exposure morena aminta, or exposure time and number of fluorographic images (if radiation exposure indices are not avail able) Quality ID #[id number]: The patient was prepped and draped using maximum sterile barrier technique including cap, mask, sterile gown, sterile gloves, a large sterile sheet, hand hygiene, and 2% Chlorhexidine fo r cutaneous antisepsis. When ultrasound is used, sterile ultrasound techniques are followed requiring sterile gel and sterile probes. TECHNICAL DOCUMENTATION: JOB ID: [id number] [employer]- All Rights Reserved
[2017-01-04] MEDS: TAMSULOSIN HCL 0.4 MG CAP.SR.24H PO SCH (10:30)
[2017-01-04] MEDS: ASPIRIN 81 MG TABLET, CHEWABLE PO SCH (10:30)
[2017-01-04] MEDS: LAMOTRIGINE 100 MG TABLET PO SCH ×2 (10:30→22:56)
[2017-01-04] MEDS: LAMOTRIGINE 25 MG TAB.CHEW PO SCH ×2 (10:30→22:56)
[2017-01-04] MEDS: METOPROLOL TARTRATE 25 MG TABLET PO SCH ×2 (10:30→22:56)
[2017-01-04] MEDS: POTASSI CL 20 MEQ/50 ML RIDER 20 MEQ/50 ML RTUPB IV SCH ×2 (10:36→14:11)
[2017-01-04] MEDS: POLYETHYLENE GLYCOL 3350 POWDER 17 GM/1 PACKET PO SCH (11:11)
[2017-01-04] MEDS ORDERED: NALOXONE HCL INJ/PF 0.4 MG/1 ML SDV IV ONE (17:02)
--- NOTE | 2017-01-04 17:19 | PDOC PROGRESS REPORT ---
Subjective Progress Note for:: 01/04/17 Subjective:: Sedated prior to PICC line insertion Unable to obtain ROS Physical Exam Vital Signs: Temp Pulse Resp BP Pulse Ox 98.5 F 96 19 150/80 H 98 01/04/17 15:18 01/04/17 15:18 01/04/17 15:18 01/04/17 15:18 01/04/17 15:18 Intake & Output 01/03/17 01/04/17 01/05/17 06:59 06:59 06:59 Intake Total 1949 1695 200 Output Total 630 400 Balance 1319 1295 200 Weight 77.6 kg 75.8 kg Exam: General: sedated, no acute respiratory distress HEENT: AT/NC, PERRL, EOMI, oropharynx is moist, pink, no scleral icterus, no conjunctival injection Neck: No JVD, trachea midline Chest: occasional rhonchi bilaterally, occasional end expiratory wheezes CV: Regular rate and rhythm, normal S1 and S2, no rub or gallop; +2/6 SM Abdomen: Soft, nontender to palpation, nondistended, hypoactive bowel sounds; no rebound, rigidity, or guarding Extremities: No cyanosis, clubbing or edema Neuro: sedated Results Laboratory Results: 01/04/17 04:12 01/04/17 04:12 01/04/17 01/04/17 04:12 04:12 WBC 15.5 H RBC 4.32 L Hgb 9.7 L Hct 29.5 L MCV 68 L MCH 22.5 L MCHC 32.9 RDW 14.7 H Plt Count 458 H Seg Neutrophils % 79.4 H Lymphocytes % 9.6 L Monocytes % 9.2 Eosinophils % 1.2 Basophils % 0.6 Absolute Neutrophils 12.3 H Absolute Lymphocytes 1.5 Absolute Monocytes 1.4 Absolute Eosinophils 0.2 Absolute Basophils 0.1 Sodium 145.8 H Potassium 3.5 L Chloride 108 H Carbon Dioxide 28 Anion Gap 10 BUN 21 H Creatinine 1.52 H Est GFR ( Amer) 55 L Est GFR (Non-Af Amer) 46 L Glucose 119 H Calcium 9.1 Phosphorus 3.9 Magnesium 2.4 H Impressions: Head CT 12/29/16 10:22 IMPRESSION: Limited study. No acute intracranial changes EVIDENCE OF ACUTE STROKE: NO. Abdomen/Pelvis CT 12/29/16 11:27 IMPRESSION: No acute findings over the chest abdomen or pelvis Cervical Spine CT 12/29/16 11:27 IMPRESSION: Multilevel central and foraminal stenosis. No acute changes. Chest CT 12/29/16 11:27 IMPRESSION: No acute findings over the chest abdomen or pelvis KUB X-Ray 12/30/16 06:00 IMPRESSION: Persistent large amount of stool in the ascending colon. Distended small bowel loops, suspect a functional obstruction due to right- sided colon constipation Chest X-Ray 01/01/17 00:00 IMPRESSION: Persistent left basilar opacity and left effusion. Cardiac enlargement without overt failure. Modified Barium Swallow 01/02/17 00:00 IMPRESSION: TRACE ASPIRATION SEEN WITH THIN AND PUREED CONSISTENCIES.PLEASE SEE SPEECH PATHOLOGIST REPORT FOR OTHER FINDINGS AND RECOMMENDATIONS. Shoulder X-Ray 01/03/17 00:00 IMPRESSION: No acute findings. Chronic right distal clavicular fracture. Guidance Fluoroscopy 01/04/17 00:00 IMPRESSION: SUCCESSFUL PLACEMENT OF A 5 FR DUAL LUMEN 42 CM PICC IN THE LEFT BASILIC VEIN. Interventional Vascular Procedure 01/04/17 00:00 IMPRESSION: SUCCESSFUL PLACEMENT OF A 5 FR DUAL LUMEN 42 CM PICC IN THE LEFT BASILIC VEIN. PICC Line Insertion 01/04/17 00:00 IMPRESSION: SUCCESSFUL PLACEMENT OF A 5 FR DUAL LUMEN 42 CM PICC IN THE LEFT BASILIC VEIN. Assessment & Plan - Diagnosis (1) Bacteremia Is this a current diagnosis for this admission?: Yes Plan: Patient with Streptococcus and stenosis of the blood. Have concerns that patient may have endocarditis as he has a prior aortic valve replacement. 2D echo performed and does not reveal any vegetation. Placed PICC line for 14 days of Rocephin minimum, but may need longer for endocarditis if found. Current repeat cultures are negative (2) Sepsis Qualifiers: Sepsis type: sepsis due to unspecified organism Qualified Code(s): A41.9 - Sepsis, unspecified organism Is this a current diagnosis for this admission?: Yes Plan: Sepsis secondary to streptococcus anginosus in the blood and aerococcus in the urine Concern for underlying endocarditis with patient's history of aortic valve replacement (3) Acute chemical pneumonitis Is this a current diagnosis for this admission?: Yes Plan: Concerned patient may have suffered from aspiration secondary to oversedation as patient is on quite a bit of antipsychotic medication as an outpatient. Continue patient on Zosyn for atypical gram-negative coverage. Unable to obtain sputum specimen secondary to cooperation. Continue nebulized treatments. Will add Solu-Medrol for bronchus spastic component to this. (4) Acute cystitis Qualifiers: Hematuria presence: without hematuria Qualified Code(s): N30.00 - Acute cystitis without hematuria Is this a current diagnosis for this admission?: Yes Plan: Patient with Aerococcus UTI patient on Zosyn day #5. We will repeat urine culture tomorrow to document resolution (5) Agitation requiring sedation protocol Is this a current diagnosis for this admission?: Yes Plan: I have quite a few concerns regarding patient's outpatient psychiatry regimen. Patient was given mild IV sedation for preprocedural considerations. He received 2 mg of IV Ativan and 2 mg of IV Haldol, and has subsequently been quite sedated thereafter. I have concerns about whether patient's outpatient medications are indeed correct. (6) Aspiration pneumonia Is this a current diagnosis for this admission?: Yes (7) Constipation Qualifiers: Constipation type: unspecified constipation type Qualified Code(s): K59.00 - Constipation, unspecified Is this a current diagnosis for this admission?: Yes Plan: Has resolved (8) Dysphagia Qualifiers: Dysphagia type: unspecified Qualified Code(s): R13.10 - Dysphagia, unspecified Is this a current diagnosis for this admission?: Yes Plan: Patient to have repeat MBS on Monday Continue speech therapy (9) Fracture, clavicle Qualifiers: Encounter type: subsequent encounter Clavicle location: lateral end Fracture type: closed Fracture alignment: displaced Laterality: right Fracture healing: with malunion Qualified Code(s): S42.031P - Displaced fracture of lateral end of right clavicle, subsequent encounter for fracture with malunion Is this a current diagnosis for this admission?: Yes Plan: This is chronic and there is nothing to do. We appreciate ortho imput (10) Schizo-affective schizophrenia, chronic condition Is this a current diagnosis for this admission?: Yes Plan: Resume and Haldol. (11) Acute kidney injury superimposed on chronic kidney disease Is this a current diagnosis for this admission?: Yes Plan: Improved (12) Acute metabolic encephalopathy Is this a current diagnosis for this admission?: Yes (13) Chronic obstructive lung disease Is this a current diagnosis for this admission?: Yes Plan: Initiate Solu-Medrol, nebulized treatments (14) Diabetes mellitus type 2 Is this a current diagnosis for this admission?: Yes Plan: Liberalize diet and stop Accu-Cheks. Patient has had exceptional blood glucose control while here. (15) Tobacco abuse Is this a current diagnosis for this admission?: Yes (16) DVT prophylaxis Is this a current diagnosis for this admission?: Yes - Time Time Spent with patient: 35 or more minutes Medications reviewed and adjusted accordingly: Yes
[2017-01-04] MEDS: VALSARTAN 160 MG TABLET PO SCH (18:09)
[2017-01-04] MEDS: DEXTROSE 5%-WATER 1000 ML 1,000 ML IV PRN (18:15)
[2017-01-04] MEDS: METHYLPREDNISOLONE INJ 40 MG/1 ML SDV IV SCH (22:55)
[2017-01-04] MEDS: NORMAL SALINE 10 ML SDV (SCHEDULED) IV SCH (22:57)
[2017-01-05] MEDS: IPRATROPIUM/ALBUTEROL 0.5-2.5 MG/3 ML AMPUL NEB SCH ×4 (01:39→19:53)
[2017-01-05] MEDS: LORAZEPAM 1 MG TABLET PO SCH ×3 (05:15→22:54)
[2017-01-05] MEDS: CLONIDINE HCL 0.1 MG TABLET PO SCH ×3 (05:15→22:54)
[2017-01-05] MEDS: PIPERACILLIN SODIUM/TAZOBACTAM 3.375 GM in NORMAL SALINE 100 ML IV SCH ×3 (05:15→19:33)
[2017-01-05] MEDS: OLANZAPINE 5 MG TABLET PO SCH ×3 (05:15→22:54)
--- NOTE | 2017-01-05 10:55 | PDOC TRANSFER SUMMARY ---
General Admission Date/PCP: 12/30/16 10:16 CHARLENE ANDERSON MD Admission Date: 12/30/16 Transfer Date: 01/05/17 Accepting Facility: [facility] Accepting Physician: Dr. James Resuscitation Status: Full Code - Transfer Diagnosis (1) Bacteremia Is this a current diagnosis for this admission?: Yes (2) Sepsis Is this a current diagnosis for this admission?: Yes (3) Acute chemical pneumonitis Is this a current diagnosis for this admission?: Yes (4) Acute cystitis Is this a current diagnosis for this admission?: Yes (5) Agitation requiring sedation protocol Is this a current diagnosis for this admission?: Yes (6) Aspiration pneumonia Is this a current diagnosis for this admission?: Yes (7) Constipation Is this a current diagnosis for this admission?: Yes (8) Dysphagia Is this a current diagnosis for this admission?: Yes (9) Fracture, clavicle Is this a current diagnosis for this admission?: Yes (10) Schizo-affective schizophrenia, chronic condition Is this a current diagnosis for this admission?: Yes (11) Acute kidney injury superimposed on chronic kidney disease Is this a current diagnosis for this admission?: Yes (12) Acute metabolic encephalopathy Is this a current diagnosis for this admission?: Yes (13) Chronic obstructive lung disease Is this a current diagnosis for this admission?: Yes (14) Diabetes mellitus type 2 Is this a current diagnosis for this admission?: Yes (15) Tobacco abuse Is this a current diagnosis for this admission?: Yes (16) DVT prophylaxis Is this a current diagnosis for this admission?: Yes - Transfer Medications Home Medications: Acetaminophen [Tylenol] 325 mg PO Q4HP PRN 12/29/16 Aspirin [Aspirin 81 mg Chewable Tablet] 81 mg PO DAILY 12/29/16 Benztropine Mesylate [Cogentin 1 mg Tablet] 1 mg PO Q8 12/29/16 Cholecalciferol (Vitamin D3) [Vitamin D3 1000 Unit Tablet] 1,000 unit PO DAILY 12/29/16 Clonidine HCl [Catapres 0.3 mg Tablet] 0.3 mg PO Q8 12/29/16 Dextromethorphan HBr [Tussin Cough] 5 ml PO Q6HP PRN 12/29/16 Docusate Sodium [Colace 100 mg Capsule] 100 mg PO DAILY 12/29/16 Doxepin HCl 100 mg PO QHS 12/29/16 Glycerin/Witch Aditi [place] [Tucks Medicated Pads] 1 each TP DAILY 12/29/16 Haloperidol [Haldol 5 mg Tablet] 5 mg PO Q8 12/29/16 Hydralazine HCl 100 mg PO Q8HP PRN 12/29/16 Lamotrigine [Lamictal] 25 mg PO Q12 12/29/16 Lamotrigine [Lamictal] 150 mg PO Q12 12/29/16 Loperamide HCl [Loperamide] 2 mg PO DAILYP PRN 12/29/16 Loratadine [Claritin] 10 mg PO DAILY 12/29/16 Lorazepam 2 mg PO Q8 12/29/16 Magnesium Hydroxide [Milk of Magnesia 30 ml Udcup] 30 ml PO HSP PRN 12/29/16 Melatonin 10 mg PO QHS 12/29/16 Metformin HCl [Glucophage 500 mg Tablet] 500 mg PO DAILY 12/29/16 Multivitamin [One-A-Day Essential] 1 each PO DAILY 12/29/16 Neomycin/Bacitracin/Polymyxinb [Triple Antibiotic Ointment] 1 each TP DAILYP PRN 12/29/16 Nifedipine [Nifedipine ER] 90 mg PO Q12 12/29/16 Olanzapine [Zyprexa] 15 mg PO Q8 12/29/16 Omeprazole 20 mg PO DAILY 12/29/16 Polyethylene Glycol 3350 [Miralax Powder 17 gm/Packet] 1 packet PO DAILY Tamsulosin HCl [Flomax 0.4 mg Cap.sr] 0.4 mg PO DAILY 12/29/16 Valsartan [Diovan 160 mg Tablet] 160 mg PO QPM 12/29/16 Transfer Medications: Current Medications Acetaminophen (Tylenol 325 Mg Tablet) 650 mg PO Q6HP PRN PRN Reason: FOR HEADACHE Stop: 01/29/17 13:37 Last Admin: 01/03/17 19:43 Dose: 650 mg Albuterol/Ipratropium (Duoneb 3 Ml Ampul) 3 ml NEB RTQ6 JAYE Stop: 01/28/17 19:59 Last Admin: 01/05/17 08:01 Dose: 3 ml Aspirin (Aspirin 81 Mg Chewable Tablet) 81 mg PO DAILY JAYE Stop: 02/02/17 09:59 Last Admin: 01/04/17 10:30 Dose: 81 mg Clonidine (Catapres 0.1 Mg Tablet) 0.3 mg PO Q8 [facility] Stop: 01/29/17 05:59 Last Admin: 01/05/17 05:15 Dose: 0.3 mg Dextrose (Dextrose Inj 50% Syringe (25 Gm/50 Ml)) 12.5 gm IV PRN PRN; Protocol PRN Reason: FOR BG 50-69 IN ALERT PATIENT Stop: 01/30/17 17:58 Dextrose (Dextrose Inj 50% Syringe (25 Gm/50 Ml)) 25 gm IV PRN PRN; Protocol PRN Reason: See Label Comments Stop: 01/30/17 17:58 Glucagon (Glucagen Inj 1 Mg Vial) 1 mg SUBCUT PRN PRN; Protocol PRN Reason: Evaluate for BG < 70 Stop: 01/30/17 17:58 Glucose (Glutose 40% Gel 15 Gm Tube) 15 gm PO PRN PRN; Protocol PRN Reason: For BG 50-69 in Alert Patient Stop: 01/30/17 17:58 Glucose (Glutose 40% Gel 15 Gm Tube) 30 gm PO PRN PRN; Protocol PRN Reason: FOR BG < 50 IN ALERT PATIENT Stop: 01/30/17 17:58 Heparin Sodium (Porcine) (Heparin Flush 10 Unit/Ml 5 Ml Disp.Syrg) 30 unit IV Q12 [facility] Stop: 02/03/17 21:59 Last Admin: 01/04/17 22:56 Dose: 30 unit Heparin Sodium (Porcine) (Heparin Flush 10 Unit/Ml 5 Ml Disp.Syrg) 30 unit IV .AFTER EACH USE PRN Stop: 02/03/17 16:19 Piperacillin Sod/Tazobactam (Sod 3.375 gm/ Sodium Chloride) 100 mls @ 200 mls/ hr IV Q6 JAYE Stop: 01/06/17 11:59 Last Admin: 01/05/17 05:15 Dose: 3.375 gm Dextrose (D5w 1000 Ml Iv Soln) 1,000 mls @ 63 mls/hr IV CONTINUOUS PRN PRN Reason: THIS MED IS NOT "PRN" Stop: 02/03/17 07:18 Last Admin: 01/04/17 18:15 Dose: 1,000 ml Lamotrigine (Lamictal 25 Mg Chewable Tab) 25 mg PO Q12 [facility] Stop: 02/02/17 09:59 Last Admin: 01/04/17 22:56 Dose: 25 mg Lamotrigine (Lamictal 100 Mg Tablet) 150 mg PO Q12 JAYE Stop: 02/02/17 09:59 Last Admin: 01/04/17 22:56 Dose: 150 mg Lorazepam (Ativan 1 Mg Tablet) 2 mg PO Q8 JAYE Stop: 01/10/17 13:59 Last Admin: 01/05/17 05:15 Dose: 2 mg Methylprednisolone Sodium Succinate (Solu-Medrol Inj/Pf 40 Mg/1 Ml Sdv) 40 mg IV Q12 JAYE Stop: 02/03/17 21:59 Last Admin: 01/04/17 22:55 Dose: 40 mg Metoprolol Tartrate (Lopressor 25 Mg Tablet) 25 mg PO Q12 JAYE Stop: 01/29/17 21:59 Last Admin: 01/04/17 22:56 Dose: 25 mg Nicotine (Nicoderm 14 Mg/24 Hr Transdermal Patch) 1 each TD DAILYP PRN Stop: 02/02/17 15:40 Olanzapine (Zyprexa 5 Mg Tablet) 5 mg PO Q8 JAYE Stop: 02/02/17 13:59 Last Admin: 01/05/17 05:15 Dose: 5 mg Polyethylene Glycol (Miralax Powder 17 Gm/Packet) 17 gm PO DAILY JAYE Stop: 02/02/17 09:59 Last Admin: 01/04/17 11:11 Dose: Not Given Senna/Docusate Sodium (Senna Plus Tablet) 2 each PO QHS JAYE Stop: 02/02/17 21:59 Sodium Chloride (Saline Flush 2.5 Ml Monoject Prefil Syrin) 2.5 ml IV Q8 JAYE Stop: 02/02/17 13:59 Last Admin: 01/05/17 05:16 Dose: Not Given Sodium Chloride (Nacl 0.9% Inj/Pf 10 Ml Sdv) 10 ml IV Q12 JAYE Stop: 02/03/17 21:59 Last Admin: 01/04/17 22:57 Dose: Not Given Sodium Chloride (Nacl 0.9% Inj/Pf 10 Ml Sdv) 10 ml IV .AFTER EACH USE PRN Stop: 02/03/17 16:19 Tamsulosin HCl (Flomax 0.4 Mg Cap.Sr) 0.4 mg PO DAILY JAYE Stop: 02/02/17 09:59 Last Admin: 01/04/17 10:30 Dose: 0.4 mg Valsartan (Diovan 160 Mg Tablet) 160 mg PO QPM JAYE Stop: 02/02/17 17:59 Last Admin: 01/04/17 18:09 Dose: 160 mg - Allergies Allergies/Adverse Reactions: No Known Allergies Allergy (Verified 12/29/16 18:45) - Diet/Activity Discharge Diet: Other (Comments) - npo for procedure Hospital Course Hospital Course: CRISTIAN HAM is a 71 year old male [facility]. Patient's care provider states that patient fell at the jail off the front porch. Patient has nasal abrasion and abrasion to top of head. Care provider from jail reports that patient has not been acting himself she states that he has been vomiting overnight. ER reports that patient wants to eat but when he does he vomits. Patient's care provider reports that patient has been coughing and experiencing changes in breathing since vomiting overnight. Patient was found to be fecally impacted. This was resolved with cathartics. Patient met sepsis criteria on admission and was found to have bacteremia with Strep anginosus, while likely 2/2 to aspiration, concern exists that patient had bacteremia on admission and has a prior aortic valve repair. Transthoracic echo was negative for vegetation. Patient to have JOHN and return for ongoing care here. PICC line was placed after repeat blood culture were negative for 24 hours. Patient on day 09/21 of Zosyn and will be transitioned to Rocephin upon return for ongoing treatment. Patient also found to have aerococcus in the urine. Repeat culture is negative. Patient completed 5 days of zosyn. patient has a long mental health history and takes multiple antipsychotics and ativan. Patient is well controlled and off restraints for 24 hours. Physical Exam Vital Signs: Temp Pulse Resp BP Pulse Ox 97.9 F 65 16 169/76 H 97 01/05/17 07:43 01/05/17 08:01 01/05/17 08:01 01/05/17 07:43 01/05/17 08:01 Intake & Output 01/04/17 01/05/17 01/06/17 06:59 06:59 06:59 Intake Total 1695 2250 Output Total 400 Balance 1295 2250 Weight 75.8 kg 78.9 kg Exam: General: A+Ox1, no acute respiratory distress HEENT: AT/NC, PERRL, EOMI, oropharynx is moist, pink, no scleral icterus, no conjunctival injection Neck: No JVD, trachea midline Chest: occasional rhonchi bilaterally, occasional end expiratory wheezes CV: Regular rate and rhythm, normal S1 and S2, no rub or gallop; +2/6 SM Abdomen: Soft, nontender to palpation, nondistended, hypoactive bowel sounds; no rebound, rigidity, or guarding Extremities: No cyanosis, clubbing or edema Neuro: A+Ox1, moves all extremities Psych: flat mood and affect Results Laboratory Results: 01/04/17 04:12 01/04/17 04:12 01/03/17 10:20 Blood Culture - Preliminary Blood NO GROWTH IN 24 HOURS 01/03/17 08:51 Blood Culture - Preliminary Blood NO GROWTH AFTER 48 HOURS 12/29/16 14:10 Urine Culture - Final [place] Catheter Aerococcus Urinae 12/29/16 11:33 Blood Culture - Final Blood Strep Anginosus Group 12/29/16 10:55 Blood Culture - Final Blood Strep Anginosus Group Impressions: Head CT 12/29/16 10:22 IMPRESSION: Limited study. No acute intracranial changes EVIDENCE OF ACUTE STROKE: NO. Abdomen/Pelvis CT 12/29/16 11:27 IMPRESSION: No acute findings over the chest abdomen or pelvis Cervical Spine CT 12/29/16 11:27 IMPRESSION: Multilevel central and foraminal stenosis. No acute changes. Chest CT 12/29/16 11:27 IMPRESSION: No acute findings over the chest abdomen or pelvis KUB X-Ray 12/30/16 06:00 IMPRESSION: Persistent large amount of stool in the ascending colon. Distended small bowel loops, suspect a functional obstruction due to right- sided colon constipation Chest X-Ray 01/01/17 00:00 IMPRESSION: Persistent left basilar opacity and left effusion. Cardiac enlargement without overt failure. Modified Barium Swallow 01/02/17 00:00 IMPRESSION: TRACE ASPIRATION SEEN WITH THIN AND PUREED CONSISTENCIES.PLEASE SEE SPEECH PATHOLOGIST REPORT FOR OTHER FINDINGS AND RECOMMENDATIONS. Shoulder X-Ray 01/03/17 00:00 IMPRESSION: No acute findings. Chronic right distal clavicular fracture. Guidance Fluoroscopy 01/04/17 00:00 IMPRESSION: SUCCESSFUL PLACEMENT OF A 5 FR DUAL LUMEN 42 CM PICC IN THE LEFT BASILIC VEIN. Interventional Vascular Procedure 01/04/17 00:00 IMPRESSION: SUCCESSFUL PLACEMENT OF A 5 FR DUAL LUMEN 42 CM PICC IN THE LEFT BASILIC VEIN. PICC Line Insertion 01/04/17 00:00 IMPRESSION: SUCCESSFUL PLACEMENT OF A 5 FR DUAL LUMEN 42 CM PICC IN THE LEFT BASILIC VEIN. Status: Imported from PACS Plan Time Spent: Greater than 30 Minutes
[2017-01-05] MEDS: TAMSULOSIN HCL 0.4 MG CAP.SR.24H PO SCH (11:26)
[2017-01-05] MEDS: METOPROLOL TARTRATE 25 MG TABLET PO SCH ×2 (11:26→22:54)
[2017-01-05] MEDS: ASPIRIN 81 MG TABLET, CHEWABLE PO SCH (11:26)
[2017-01-05] MEDS: LAMOTRIGINE 100 MG TABLET PO SCH ×2 (11:27→22:54)
[2017-01-05] MEDS: METHYLPREDNISOLONE INJ 40 MG/1 ML SDV IV SCH ×2 (11:29→22:03)
[2017-01-05] MEDS: LAMOTRIGINE 25 MG TAB.CHEW PO SCH ×2 (11:29→23:29)
[2017-01-05] MEDS: POLYETHYLENE GLYCOL 3350 POWDER 17 GM/1 PACKET PO SCH (11:46)
[2017-01-05] MEDS ORDERED: LORAZEPAM INJ 2 MG/1 ML VIAL IV ONE (11:54)
[2017-01-05] MEDS ORDERED: HALOPERIDOL LACTATE INJ 5 MG/1 ML VIAL IV ONE (11:54)
[2017-01-05] MEDS ORDERED: OLANZAPINE INJ/PF 10 MG SDV IM ONE (11:54)
[2017-01-05] MEDS ORDERED: DIPHENHYDRAMINE HCL 50 MG/ML VIAL IV ONE (11:58)
[2017-01-05] MEDS ORDERED: HALOPERIDOL LACTATE INJ 5 MG/1 ML VIAL ONE (12:00)
[2017-01-05] MEDS ORDERED: LORAZEPAM INJ 2 MG/1 ML VIAL ONE (12:01)
[2017-01-05] MEDS ORDERED: DIPHENHYDRAMINE HCL 50 MG/ML VIAL ONE (12:02)
[2017-01-05] MEDS: NORMAL SALINE 10 ML SDV (SCHEDULED) IV SCH ×2 (14:04→22:03)
[2017-01-05] MEDS ORDERED: HYDROMORPHONE HCL INJ/PF 2 MG/ML AMPULE IV PRN (16:45)
[2017-01-05] MEDS: DEXTROSE 5%-WATER 1000 ML 1,000 ML IV PRN (17:04)
[2017-01-05] MEDS: VALSARTAN 160 MG TABLET PO SCH (20:30)
[2017-01-06] MEDS: IPRATROPIUM/ALBUTEROL 0.5-2.5 MG/3 ML AMPUL NEB SCH ×4 (02:01→20:53)
[2017-01-06] MEDS: CLONIDINE HCL 0.1 MG TABLET PO SCH ×3 (06:33→21:40)
[2017-01-06] MEDS: LORAZEPAM 1 MG TABLET PO SCH ×3 (06:33→21:41)
[2017-01-06] MEDS: OLANZAPINE 5 MG TABLET PO SCH ×3 (06:33→21:41)
[2017-01-06] MEDS: PIPERACILLIN SODIUM/TAZOBACTAM 3.375 GM in NORMAL SALINE 100 ML IV SCH (06:33)
--- NOTE | 2017-01-06 09:32 | RADIOLOGY REPORT (SQ) ---
EXAM DESCRIPTION: PICC INSERTION; U/S GUIDE FOR VASCULAR ACCESS; FLUORO/CV PLACEMENT COMPLETED DATE/TIME: 01/06/2017 9:13 am REASON FOR STUDY: iv abx; IV ABX A40.9 STREPTOCOCCAL SEPSIS, UNSPECIFIED COMPARISON: PICC line 01/04/2017 AP chest 01/01/2017 FLUOROSCOPY TIME: 22 seconds 1 ultrasound and 1 digital chest radiograph images saved to PACS. TECHNIQUE: Fluoroscopic and ultrasound guided PICC placement. LIMITATIONS: None. PROCEDURE: After written consent and assessment were obtained, the patient was brought into the fluo roscopy room and place supine on the table. Ultrasound was used on the patient's left arm for PICC a ccess. The left arm was prepped and draped in a sterile fashion along with the ultrasound probe. The entry site was anesthetized with 1% lidocaine. A 21 gauge 7 cm needle was advanced through the skin a nd into the basilic vein under live ultrasound guidance. An ultrasound image was saved to PACS confi rming access site. A .018 guide wire was then inserted through the needle and into the venous system . The needle was the removed and an 11 blade scalpel was used to make a 1cm skin incision. A 5 fr pe el-away sheath was advanced over the wire and into the venous system. A measurement was then made usi ng the existing wire and live fluoroscopic guidance. The wire was then removed and the trimmed. The P ICC was advanced through the peel-away sheath and into the venous system. The peel-away sheath was re moved and the catheter was adhered to the patients arm with a stat lock. The catheter was then aspira gila and flushed and a sterile bandage was placed over the access site. A fluoroscopic spot image was saved to PACS confirming the catheter tip within the superior vena cava. IMPRESSION: SUCCESSFUL PLACEMENT OF A 5 FR DUAL LUMEN 42 CM PICC IN THE LEFT BASILIC VEIN. COMMENT: Patient medication list reviewed: Yes- Quality ID# [id number]:Eligible professional attests to doc umenting in the medical record they obtained, updated, or reviewed the patient's current medications. . Quality ID 145: Final reports for procedures using fluoroscopy that document radiation exposure morena aminta, or exposure time and number of fluorographic images (if radiation exposure indices are not avail able) Quality ID #76: The patient was prepped and draped using maximum sterile barrier technique including cap, mask, sterile gown, sterile gloves, a large sterile sheet, hand hygiene, and 2% Chlorhexidine fo r cutaneous antisepsis. When ultrasound is used, sterile ultrasound techniques are followed requiring sterile gel and sterile probes. TECHNICAL DOCUMENTATION: JOB ID: [id number] [employer]- All Rights Reserved
[2017-01-06] MEDS: LAMOTRIGINE 100 MG TABLET PO SCH ×2 (09:48→21:40)
[2017-01-06] MEDS: METOPROLOL TARTRATE 25 MG TABLET PO SCH ×2 (09:48→21:41)
[2017-01-06] MEDS: METHYLPREDNISOLONE INJ 40 MG/1 ML SDV IV SCH ×2 (09:49→21:39)
[2017-01-06] MEDS: ASPIRIN 81 MG TABLET, CHEWABLE PO SCH (10:01)
[2017-01-06] MEDS ORDERED: HALOPERIDOL LACTATE INJ 5 MG/1 ML VIAL ONE (10:05)
[2017-01-06] MEDS: NORMAL SALINE 10 ML SDV (SCHEDULED) IV SCH ×2 (11:34→21:39)
[2017-01-06] MEDS: POLYETHYLENE GLYCOL 3350 POWDER 17 GM/1 PACKET PO SCH (11:34)
[2017-01-06] MEDS: VALSARTAN 160 MG TABLET PO SCH (20:54)
[2017-01-06] MEDS: LAMOTRIGINE 25 MG TAB.CHEW PO SCH ×2 (20:54→22:49)
[2017-01-06] MEDS ORDERED: CEFTRIAXONE 2 GM/D5W RTU 2 GM/50 ML RTUPB IV ONE (21:00)
[2017-01-06] MEDS: TAMSULOSIN HCL 0.4 MG CAP.SR.24H PO SCH (21:43)
[2017-01-06] MEDS: NORMAL SALINE 10 ML SDV (AFTER EACH USE) IV PRN (22:49)
[2017-01-07] MEDS ORDERED: CEFTRIAXONE 2 GM/D5W RTU 2 GM/50 ML RTUPB IV ONE
[2017-01-07] MEDS: IPRATROPIUM/ALBUTEROL 0.5-2.5 MG/3 ML AMPUL NEB SCH ×4 (02:51→19:47)
[2017-01-07] MEDS: CLONIDINE HCL 0.1 MG TABLET PO SCH ×3 (06:56→23:29)
[2017-01-07] MEDS: OLANZAPINE 5 MG TABLET PO SCH ×3 (06:57→23:30)
[2017-01-07] MEDS: LORAZEPAM 1 MG TABLET PO SCH ×3 (06:57→23:32)
[2017-01-07] MEDS: LAMOTRIGINE 100 MG TABLET PO SCH ×2 (10:22→23:33)
[2017-01-07] MEDS: LAMOTRIGINE 25 MG TAB.CHEW PO SCH ×2 (10:22→23:34)
[2017-01-07] MEDS: TAMSULOSIN HCL 0.4 MG CAP.SR.24H PO SCH (10:22)
[2017-01-07] MEDS: ASPIRIN 81 MG TABLET, CHEWABLE PO SCH (10:22)
[2017-01-07] MEDS: METOPROLOL TARTRATE 25 MG TABLET PO SCH ×2 (10:23→23:32)
[2017-01-07] MEDS: METHYLPREDNISOLONE INJ 40 MG/1 ML SDV IV SCH (10:24)
[2017-01-07] MEDS: NORMAL SALINE 10 ML SDV (SCHEDULED) IV SCH ×2 (10:24→23:30)
[2017-01-07] MEDS: POLYETHYLENE GLYCOL 3350 POWDER 17 GM/1 PACKET PO SCH (10:24)
[2017-01-07 10:33] LABS: ABSOLUTE LYMPHOCYTES (AUTO) 1.7 10^3/uL (0.5-4.7); ABSOLUTE MONOCYTES (AUTO) 0.7 10^3/uL (0.1-1.4); ABSOLUTE NEUT (AUTO) 7.8 10^3/uL (1.7-8.2); BASOPHILS % (AUTO) 0.2 % (0-2); EOSINOPHILS % (AUTO) 0.2 % (0-6); HEMATOCRIT 24.6 % (37.9-51.0); HEMOGLOBIN 8.3 g/dL (13.5-17.0); HGB HCT DIFFERENCE 0.3; LYMPHOCYTES % (AUTO) 16.4 % (13-45); MEAN CORPUSCULAR HGB CONC 33.9 g/dL (32.0-36.0); MEAN CORPUSCULAR VOLUME 68 fl (80-97); MONOCYTES % (AUTO) 6.9 % (3-13); RED BLOOD COUNT 3.64 10^6/uL (4.35-5.55); RED CELL DISTRIBUTION WIDTH 14.6 % (11.5-14.0); SEGMENTED NEUTROPHILS % (AUTO) 76.3 % (42-78); WHITE BLOOD COUNT 10.3 10^3/uL (4.0-10.5)
[2017-01-07 11:01] LABS: ANION GAP 6 (5-19); BLOOD UREA NITROGEN 24 mg/dL (7-20); CALCIUM 8.4 mg/dL (8.4-10.2); CARBON DIOXIDE 34 mmol/L (22-30); CHLORIDE 104 mmol/L (98-107); CREATININE RESULT 1.31 mg/dL (0.52-1.25); GLUCOSE 140 mg/dL (75-110); POTASSIUM 3.7 mmol/L (3.6-5.0); SODIUM 144.3 mmol/L (137-145)
--- NOTE | 2017-01-07 16:14 | PDOC H&P ---
History of Present Illness Admission Date/PCP: 12/30/16 10:16 CHARLENE ANDERSON MD History of Present Illness: Patient returns to [facility] for ongoing IV antibiotics after receiving a JOHN at [facility]. 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 I spoke with Dr. Montes about this patient, and he reports there is no need to replace the valve at this time, and he will need to have a repeat JOHN in approximately 6 -8 weeks. Past Medical History Cardiac Medical History: Reports: Hyperlipidema, Hypertension Comment Only: Atrial Fibrillation - IRREGULAR HEARTBEAT Pulmonary Medical History: Reports: Chronic Obstructive Pulmonary Disease (COPD) Denies: Tuberculosis - unknown Endocrine Medical History: Reports: Diabetes Mellitus Type 1, Diabetes Mellitus Type 2 GI Medical History: Reports: Gastroesophageal Reflux Disease Psychiatric Medical History: Reports: Depression, Personality Disorder - Dependent personality disorder, Schizoaffective Disorder Hematology: Reports: Anemia Past Surgical History Past Surgical History: Reports: None Social History Smoking Status: Current Every Day Smoker Frequency of Alcohol Use: None Hx Recreational Drug Use: No Drugs: None Hx Prescription Drug Abuse: No - Advance Directive Resuscitation Status: Full Code Surrogate healthcare decision maker:: willervikash montes Family History Family History: Other - unable to obtain Parental Family History Reviewed: No Children Family History Reviewed: NA Sibling(s) Family History Reviewed.: No Medication/Allergy Home Medications: Acetaminophen [Tylenol] 325 mg PO Q4HP PRN 12/29/16 Aspirin [Aspirin 81 mg Chewable Tablet] 81 mg PO DAILY 12/29/16 Benztropine Mesylate [Cogentin 1 mg Tablet] 1 mg PO Q8 12/29/16 Cholecalciferol (Vitamin D3) [Vitamin D3 1000 Unit Tablet] 1,000 unit PO DAILY 12/29/16 Clonidine HCl [Catapres 0.3 mg Tablet] 0.3 mg PO Q8 12/29/16 Dextromethorphan HBr [Tussin Cough] 5 ml PO Q6HP PRN 12/29/16 Docusate Sodium [Colace 100 mg Capsule] 100 mg PO DAILY 12/29/16 Doxepin HCl 100 mg PO QHS 12/29/16 Glycerin/Witch Aditi [place] [Tucks Medicated Pads] 1 each TP DAILY 12/29/16 Haloperidol [Haldol 5 mg Tablet] 5 mg PO Q8 12/29/16 Hydralazine HCl 100 mg PO Q8HP PRN 12/29/16 Lamotrigine [Lamictal] 25 mg PO Q12 12/29/16 Lamotrigine [Lamictal] 150 mg PO Q12 12/29/16 Loperamide HCl [Loperamide] 2 mg PO DAILYP PRN 12/29/16 Loratadine [Claritin] 10 mg PO DAILY 12/29/16 Lorazepam 2 mg PO Q8 12/29/16 Magnesium Hydroxide [Milk of Magnesia 30 ml Udcup] 30 ml PO HSP PRN 12/29/16 Melatonin 10 mg PO QHS 12/29/16 Metformin HCl [Glucophage 500 mg Tablet] 500 mg PO DAILY 12/29/16 Multivitamin [One-A-Day Essential] 1 each PO DAILY 12/29/16 Neomycin/Bacitracin/Polymyxinb [Triple Antibiotic Ointment] 1 each TP DAILYP PRN 12/29/16 Nifedipine [Nifedipine ER] 90 mg PO Q12 12/29/16 Olanzapine [Zyprexa] 15 mg PO Q8 12/29/16 Omeprazole 20 mg PO DAILY 12/29/16 Polyethylene Glycol 3350 [Miralax Powder 17 gm/Packet] 1 packet PO DAILY Tamsulosin HCl [Flomax 0.4 mg Cap.sr] 0.4 mg PO DAILY 12/29/16 Valsartan [Diovan 160 mg Tablet] 160 mg PO QPM 12/29/16 Allergies/Adverse Reactions: No Known Allergies Allergy (Verified 12/29/16 18:45) Review of Systems ROS unobtainable: Due to mental status Physical Exam Vital Signs: Temp Pulse Resp BP Pulse Ox 98.3 F 87 16 170/93 H 95 01/07/17 11:42 01/07/17 13:59 01/07/17 13:59 01/07/17 11:42 01/07/17 13:59 Intake & Output 01/06/17 01/07/17 01/08/17 06:59 06:59 06:59 Intake Total 1718 563 Balance 1718 563 Weight 80 kg 80 kg Exam: General: A+Ox1, no acute respiratory distress HEENT: AT/NC, PERRL, EOMI, oropharynx is moist, pink, no scleral icterus, no conjunctival injection Neck: No JVD, trachea midline Chest: CTAB CV: Regular rate and rhythm, normal S1 and S2, no rub or gallop; +2/6 SM Abdomen: Soft, nontender to palpation, nondistended, hypoactive bowel sounds; no rebound, rigidity, or guarding Extremities: No cyanosis, clubbing or edema Neuro: A+Ox1, moves all extremities Psych: flat mood and affect Results Laboratory Results: 01/07/17 10:20 01/07/17 10:20 01/07/17 01/07/17 10:20 10:20 WBC 10.3 RBC 3.64 L Hgb 8.3 L Hct 24.6 L MCV 68 L MCH 23.0 L MCHC 33.9 RDW 14.6 H Plt Count 504 H Seg Neutrophils % 76.3 Lymphocytes % 16.4 Monocytes % 6.9 Eosinophils % 0.2 Basophils % 0.2 Absolute Neutrophils 7.8 Absolute Lymphocytes 1.7 Absolute Monocytes 0.7 Absolute Eosinophils 0.0 Absolute Basophils 0.0 Sodium 144.3 Potassium 3.7 Chloride 104 Carbon Dioxide 34 H Anion Gap 6 BUN 24 H Creatinine 1.31 H Est GFR ( Amer) > 60 Est GFR (Non-Af Amer) 54 L Glucose 140 H Calcium 8.4 Impressions: Head CT 12/29/16 10:22 IMPRESSION: Limited study. No acute intracranial changes EVIDENCE OF ACUTE STROKE: NO. Abdomen/Pelvis CT 12/29/16 11:27 IMPRESSION: No acute findings over the chest abdomen or pelvis Cervical Spine CT 12/29/16 11:27 IMPRESSION: Multilevel central and foraminal stenosis. No acute changes. Chest CT 12/29/16 11:27 IMPRESSION: No acute findings over the chest abdomen or pelvis KUB X-Ray 12/30/16 06:00 IMPRESSION: Persistent large amount of stool in the ascending colon. Distended small bowel loops, suspect a functional obstruction due to right- sided colon constipation Chest X-Ray 01/01/17 00:00 IMPRESSION: Persistent left basilar opacity and left effusion. Cardiac enlargement without overt failure. Modified Barium Swallow 01/02/17 00:00 IMPRESSION: TRACE ASPIRATION SEEN WITH THIN AND PUREED CONSISTENCIES.PLEASE SEE SPEECH PATHOLOGIST REPORT FOR OTHER FINDINGS AND RECOMMENDATIONS. Shoulder X-Ray 01/03/17 00:00 IMPRESSION: No acute findings. Chronic right distal clavicular fracture. Guidance Fluoroscopy 01/06/17 00:00 IMPRESSION: SUCCESSFUL PLACEMENT OF A 5 FR DUAL LUMEN 42 CM PICC IN THE LEFT BASILIC VEIN. PICC Line Insertion 01/06/17 04:28 IMPRESSION: SUCCESSFUL PLACEMENT OF A 5 FR DUAL LUMEN 42 CM PICC IN THE LEFT BASILIC VEIN. Interventional Vascular Procedure 01/06/17 04:29 IMPRESSION: SUCCESSFUL PLACEMENT OF A 5 FR DUAL LUMEN 42 CM PICC IN THE LEFT BASILIC VEIN. 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 Patient will need minimum of 8 weeks of Rocephin 2 g IV daily. (3) Acute cystitis Qualifiers: Hematuria presence: without hematuria Qualified Code(s): N30.00 - Acute cystitis without hematuria Is this a current diagnosis for this admission?: Yes Plan: Patient has completed 7 days of Zosyn for this. (4) Aspiration pneumonia Is this a current diagnosis for this admission?: Yes Plan: Continue Rocephin for this doing well. (5) Constipation Qualifiers: Constipation type: unspecified constipation type Qualified Code(s): K59.00 - Constipation, unspecified Is this a current diagnosis for this admission?: Yes Plan: Has resolved (6) Dysphagia Qualifiers: Dysphagia type: unspecified Qualified Code(s): R13.10 - Dysphagia, unspecified Is this a current diagnosis for this admission?: Yes Plan: Patient to have repeat MBS on Monday Continue speech therapy (7) Fracture, clavicle Qualifiers: Encounter type: subsequent encounter Clavicle location: lateral end Fracture type: closed Fracture alignment: displaced Laterality: right Fracture healing: with malunion Qualified Code(s): S42.031P - Displaced fracture of lateral end of right clavicle, subsequent encounter for fracture with malunion Is this a current diagnosis for this admission?: Yes Plan: This is chronic and there is nothing to do. We appreciate ortho imput (8) Schizo-affective schizophrenia, chronic condition Is this a current diagnosis for this admission?: Yes Plan: Currently stable and off restraints Continue Ativan, Haldol, and Zyprexa (9) Acute kidney injury superimposed on chronic kidney disease Is this a current diagnosis for this admission?: Yes Plan: Improved (10) Acute metabolic encephalopathy Is this a current diagnosis for this admission?: Yes (11) Chronic obstructive lung disease Is this a current diagnosis for this admission?: Yes (12) Diabetes mellitus type 2 Is this a current diagnosis for this admission?: Yes Plan: Liberalize diet and encourage oral intake. (13) Tobacco abuse Is this a current diagnosis for this admission?: Yes Plan: nicotine patch (14) DVT prophylaxis Is this a current diagnosis for this admission?: Yes
[2017-01-07] MEDS: CEFTRIAXONE 2 GM/D5W RTU 2 GM/50 ML RTUPB IV SCH (17:11)
[2017-01-07] MEDS: VALSARTAN 160 MG TABLET PO SCH (17:12)
[2017-01-08] MEDS: IPRATROPIUM/ALBUTEROL 0.5-2.5 MG/3 ML AMPUL NEB SCH ×4 (01:49→20:21)
[2017-01-08] MEDS: LORAZEPAM 1 MG TABLET PO SCH ×3 (06:17→22:17)
[2017-01-08] MEDS: OLANZAPINE 5 MG TABLET PO SCH ×3 (06:17→22:17)
[2017-01-08] MEDS: CLONIDINE HCL 0.1 MG TABLET PO SCH ×3 (06:17→22:17)
[2017-01-08] MEDS: ASPIRIN 81 MG TABLET, CHEWABLE PO SCH (10:37)
[2017-01-08] MEDS: TAMSULOSIN HCL 0.4 MG CAP.SR.24H PO SCH (10:37)
[2017-01-08] MEDS: NORMAL SALINE 10 ML SDV (SCHEDULED) IV SCH ×2 (10:38→22:17)
[2017-01-08] MEDS: LAMOTRIGINE 25 MG TAB.CHEW PO SCH ×2 (10:38→22:17)
[2017-01-08] MEDS: METOPROLOL TARTRATE 25 MG TABLET PO SCH ×2 (10:38→22:17)
[2017-01-08] MEDS: LAMOTRIGINE 100 MG TABLET PO SCH ×2 (10:39→22:17)
[2017-01-08] MEDS ORDERED: INFLUENZA ADLT QUAD (36MOS+) 2017-18 VAC 0.5 ML SYR IM PRN (10:50)
[2017-01-08] MEDS: POLYETHYLENE GLYCOL 3350 POWDER 17 GM/1 PACKET PO SCH (10:54)
[2017-01-08] MEDS: NICOTINE 14 MG/24 HR PATCH.TD24 TD PRN (12:08)
--- NOTE | 2017-01-08 17:12 | PDOC PROGRESS REPORT ---
Subjective Progress Note for:: 01/08/17 Subjective:: Unable to obtain review of systems secondary to schizophrenia/dementia. He denies any pain at this time. Physical Exam Vital Signs: Temp Pulse Resp BP Pulse Ox 98.7 F 73 16 174/88 H 99 01/08/17 15:38 01/08/17 15:38 01/08/17 15:38 01/08/17 15:38 01/08/17 15:38 Intake & Output 01/07/17 01/08/17 01/09/17 06:59 06:59 06:59 Intake Total 563 1222 480 Balance 563 1222 480 Weight 80 kg 80 kg Exam: General: A+Ox1, no acute respiratory distress HEENT: AT/NC, PERRL, EOMI, oropharynx is moist, pink, no scleral icterus, no conjunctival injection Neck: No JVD, trachea midline Chest: CTAB CV: Regular rate and rhythm, normal S1 and S2, no rub or gallop; right upper sternal border +2/6 SM Abdomen: Soft, nontender to palpation, nondistended, hypoactive bowel sounds; no rebound, rigidity, or guarding Extremities: No cyanosis, clubbing or edema Neuro: A+Ox1, moves all extremities Psych: flat mood and affect Results Laboratory Results: 01/07/17 10:20 01/07/17 10:20 01/03/17 10:20 Blood Blood Culture - Final NO GROWTH IN 5 DAYS 01/03/17 08:51 Blood Blood Culture - Final NO GROWTH IN 5 DAYS Impressions: Head CT 12/29/16 10:22 IMPRESSION: Limited study. No acute intracranial changes EVIDENCE OF ACUTE STROKE: NO. Abdomen/Pelvis CT 12/29/16 11:27 IMPRESSION: No acute findings over the chest abdomen or pelvis Cervical Spine CT 12/29/16 11:27 IMPRESSION: Multilevel central and foraminal stenosis. No acute changes. Chest CT 12/29/16 11:27 IMPRESSION: No acute findings over the chest abdomen or pelvis KUB X-Ray 12/30/16 06:00 IMPRESSION: Persistent large amount of stool in the ascending colon. Distended small bowel loops, suspect a functional obstruction due to right- sided colon constipation Chest X-Ray 01/01/17 00:00 IMPRESSION: Persistent left basilar opacity and left effusion. Cardiac enlargement without overt failure. Modified Barium Swallow 01/02/17 00:00 IMPRESSION: TRACE ASPIRATION SEEN WITH THIN AND PUREED CONSISTENCIES.PLEASE SEE SPEECH PATHOLOGIST REPORT FOR OTHER FINDINGS AND RECOMMENDATIONS. Shoulder X-Ray 01/03/17 00:00 IMPRESSION: No acute findings. Chronic right distal clavicular fracture. Guidance Fluoroscopy 01/06/17 00:00 IMPRESSION: SUCCESSFUL PLACEMENT OF A 5 FR DUAL LUMEN 42 CM PICC IN THE LEFT BASILIC VEIN. PICC Line Insertion 01/06/17 04:28 IMPRESSION: SUCCESSFUL PLACEMENT OF A 5 FR DUAL LUMEN 42 CM PICC IN THE LEFT BASILIC VEIN. Interventional Vascular Procedure 01/06/17 04:29 IMPRESSION: SUCCESSFUL PLACEMENT OF A 5 FR DUAL LUMEN 42 CM PICC IN THE LEFT BASILIC VEIN. 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 Patient will need minimum of 8 weeks of Rocephin 2 g IV daily. And repeat JOHN after this (3) Acute cystitis Qualifiers: Hematuria presence: without hematuria Qualified Code(s): N30.00 - Acute cystitis without hematuria Is this a current diagnosis for this admission?: Yes Plan: Patient has completed 7 days of Zosyn for this. (4) Aspiration pneumonia Is this a current diagnosis for this admission?: Yes Plan: Continue Rocephin for this doing well. (5) Constipation Qualifiers: Constipation type: unspecified constipation type Qualified Code(s): K59.00 - Constipation, unspecified Is this a current diagnosis for this admission?: Yes Plan: Has resolved (6) Dysphagia Qualifiers: Dysphagia type: unspecified Qualified Code(s): R13.10 - Dysphagia, unspecified Is this a current diagnosis for this admission?: Yes (7) Fracture, clavicle Qualifiers: Encounter type: subsequent encounter Clavicle location: lateral end Fracture type: closed Fracture alignment: displaced Laterality: right Fracture healing: with malunion Qualified Code(s): S42.031P - Displaced fracture of lateral end of right clavicle, subsequent encounter for fracture with malunion Is this a current diagnosis for this admission?: Yes Plan: This is chronic and there is nothing to do. We appreciate ortho imput (8) Schizo-affective schizophrenia, chronic condition Is this a current diagnosis for this admission?: Yes Plan: Currently stable and off restraints Continue Ativan, Haldol, and Zyprexa Generic Name Dose Route Start Last Admin Trade Name Freq PRN Reason Stop Dose Admin Haloperidol 5 mg 01/08/17 07:45 Haldol 5 Mg Tablet PO 02/07/17 07:44 Q8A JAYE Lamotrigine 25 mg 01/03/17 10:00 01/08/17 10:38 Lamictal 25 Mg Chewable Tab PO 02/02/17 09:59 25 mg Q12 JAYE Lamotrigine 150 mg 01/03/17 10:00 01/08/17 10:39 Lamictal 100 Mg Tablet PO 02/02/17 09:59 150 mg Q12 JAYE Lorazepam 2 mg 01/03/17 14:00 01/08/17 13:56 Ativan 1 Mg Tablet PO 01/10/17 13:59 2 mg Q8 JAYE Olanzapine 5 mg 01/03/17 14:00 01/08/17 13:56 Zyprexa 5 Mg Tablet PO 02/02/17 13:59 5 mg Q8 JAYE (9) Acute kidney injury superimposed on chronic kidney disease Is this a current diagnosis for this admission?: Yes Plan: Improved (10) Acute metabolic encephalopathy Is this a current diagnosis for this admission?: Yes (11) Chronic obstructive lung disease Is this a current diagnosis for this admission?: Yes Plan: Breathing treatments as needed (12) Diabetes mellitus type 2 Is this a current diagnosis for this admission?: Yes (13) Tobacco abuse Is this a current diagnosis for this admission?: Yes Plan: nicotine patch (14) DVT prophylaxis Is this a current diagnosis for this admission?: Yes - Time Time Spent with patient: 25-34 minutes Medications reviewed and adjusted accordingly: Yes Anticipated discharge: Acute Rehab Within: when bed available
[2017-01-08] MEDS: HALOPERIDOL 5 MG TABLET PO SCH (17:54)
[2017-01-08] MEDS: CEFTRIAXONE 2 GM/D5W RTU 2 GM/50 ML RTUPB IV SCH (17:55)
[2017-01-08] MEDS: VALSARTAN 160 MG TABLET PO SCH (17:55)
[2017-01-09] MEDS: IPRATROPIUM/ALBUTEROL 0.5-2.5 MG/3 ML AMPUL NEB SCH ×4 (01:23→20:11)
[2017-01-09] MEDS: HALOPERIDOL 5 MG TABLET PO SCH ×3 (03:22→18:26)
[2017-01-09] MEDS: LORAZEPAM 1 MG TABLET PO SCH ×3 (05:41→22:28)
[2017-01-09] MEDS: CLONIDINE HCL 0.1 MG TABLET PO SCH ×3 (05:41→22:24)
[2017-01-09] MEDS: OLANZAPINE 5 MG TABLET PO SCH ×3 (05:41→22:28)
[2017-01-09] MEDS: TAMSULOSIN HCL 0.4 MG CAP.SR.24H PO SCH (10:01)
[2017-01-09] MEDS: LAMOTRIGINE 100 MG TABLET PO SCH ×2 (10:01→22:24)
[2017-01-09] MEDS: ASPIRIN 81 MG TABLET, CHEWABLE PO SCH (10:02)
[2017-01-09] MEDS: METOPROLOL TARTRATE 25 MG TABLET PO SCH ×2 (10:03→22:28)
[2017-01-09] MEDS: LAMOTRIGINE 25 MG TAB.CHEW PO SCH ×2 (10:05→22:27)
[2017-01-09] MEDS: NORMAL SALINE 10 ML SDV (SCHEDULED) IV SCH ×2 (10:06→22:28)
[2017-01-09] MEDS: POLYETHYLENE GLYCOL 3350 POWDER 17 GM/1 PACKET PO SCH (10:06)
--- NOTE | 2017-01-09 15:53 | PDOC PROGRESS REPORT ---
Subjective Progress Note for:: 01/09/17 Subjective:: No reported temperature spikes or respiratory distress. No reported diarrhea. Patient able to eat as reported. No nausea or vomiting. Patient with advanced dementia. Patient overall feels generally weak. Physical Exam Vital Signs: Temp Pulse Resp BP Pulse Ox 98.2 F 79 20 164/88 H 98 01/09/17 07:34 01/09/17 14:32 01/09/17 14:32 01/09/17 07:34 01/09/17 14:32 Intake & Output 01/08/17 01/09/17 01/10/17 06:59 06:59 06:59 Intake Total 1222 1390 600 Output Total 150 Balance 1222 1240 600 Weight 80 kg 76.1 kg General appearance: PRESENT: no acute distress, cooperative Head exam: PRESENT: normocephalic Eye exam: PRESENT: EOMI Mouth exam: PRESENT: moist, neck supple Neck exam: ABSENT: JVD Respiratory exam: PRESENT: clear to auscultation daxa. ABSENT: rhonchi, wheezes Cardiovascular exam: PRESENT: RRR. ABSENT: gallop GI/Abdominal exam: PRESENT: hypoactive bowel sounds, soft. ABSENT: distended, tenderness Extremities exam: ABSENT: pedal edema Neurological exam: PRESENT: alert, awake Skin exam: PRESENT: dry, warm. ABSENT: cyanosis Results Laboratory Results: 01/07/17 10:20 01/07/17 10:20 Impressions: Head CT 12/29/16 10:22 IMPRESSION: Limited study. No acute intracranial changes EVIDENCE OF ACUTE STROKE: NO. Abdomen/Pelvis CT 12/29/16 11:27 IMPRESSION: No acute findings over the chest abdomen or pelvis Cervical Spine CT 12/29/16 11:27 IMPRESSION: Multilevel central and foraminal stenosis. No acute changes. Chest CT 12/29/16 11:27 IMPRESSION: No acute findings over the chest abdomen or pelvis KUB X-Ray 12/30/16 06:00 IMPRESSION: Persistent large amount of stool in the ascending colon. Distended small bowel loops, suspect a functional obstruction due to right- sided colon constipation Chest X-Ray 01/01/17 00:00 IMPRESSION: Persistent left basilar opacity and left effusion. Cardiac enlargement without overt failure. Modified Barium Swallow 01/02/17 00:00 IMPRESSION: TRACE ASPIRATION SEEN WITH THIN AND PUREED CONSISTENCIES.PLEASE SEE SPEECH PATHOLOGIST REPORT FOR OTHER FINDINGS AND RECOMMENDATIONS. Shoulder X-Ray 01/03/17 00:00 IMPRESSION: No acute findings. Chronic right distal clavicular fracture. Guidance Fluoroscopy 01/06/17 00:00 IMPRESSION: SUCCESSFUL PLACEMENT OF A 5 FR DUAL LUMEN 42 CM PICC IN THE LEFT BASILIC VEIN. PICC Line Insertion 01/06/17 04:28 IMPRESSION: SUCCESSFUL PLACEMENT OF A 5 FR DUAL LUMEN 42 CM PICC IN THE LEFT BASILIC VEIN. Interventional Vascular Procedure 01/06/17 04:29 IMPRESSION: SUCCESSFUL PLACEMENT OF A 5 FR DUAL LUMEN 42 CM PICC IN THE LEFT BASILIC VEIN. Assessment & Plan - Diagnosis (1) Acute metabolic encephalopathy Is this a current diagnosis for this admission?: Yes (2) Sepsis Qualifiers: Sepsis type: Streptococcus, unspecified Qualified Code(s): A40.9 - Streptococcal sepsis, unspecified; A40 - Streptococcal sepsis Is this a current diagnosis for this admission?: Yes (3) Endocarditis of prosthetic valve Qualifiers: Encounter type: subsequent encounter Qualified Code(s): T82.6XXD - Infection and inflammatory reaction due to cardiac valve prosthesis, subsequent encounter Is this a current diagnosis for this admission?: Yes (4) Acute kidney injury superimposed on chronic kidney disease Is this a current diagnosis for this admission?: Yes (5) Acute cystitis Qualifiers: Hematuria presence: without hematuria Qualified Code(s): N30.00 - Acute cystitis without hematuria Is this a current diagnosis for this admission?: Yes (6) Aspiration pneumonia Qualifiers: Aspiration pneumonia type: unspecified Laterality: unspecified laterality Lung location: unspecified part of lung Qualified Code(s): J69.0 - Pneumonitis due to inhalation of food and vomit Is this a current diagnosis for this admission?: Yes (7) Constipation Qualifiers: Constipation type: unspecified constipation type Qualified Code(s): K59.00 - Constipation, unspecified Is this a current diagnosis for this admission?: Yes (8) Dysphagia Qualifiers: Dysphagia type: unspecified Qualified Code(s): R13.10 - Dysphagia, unspecified Is this a current diagnosis for this admission?: Yes (9) Schizo-affective schizophrenia, chronic condition Is this a current diagnosis for this admission?: Yes (10) Chronic obstructive lung disease Is this a current diagnosis for this admission?: Yes (11) Diabetes mellitus type 2 Is this a current diagnosis for this admission?: Yes - Time Time Spent with patient: 25-34 minutes - Plan Summary Plan Summary: We are going to continue current antibiotics. We will consult transportation planner for [facility] facility for IV antibiotic infusion for 6-8 weeks. Patient already had a PICC line. Continue supportive care. Physical therapy.
[2017-01-09] MEDS: CEFTRIAXONE 2 GM/D5W RTU 2 GM/50 ML RTUPB IV SCH (18:22)
[2017-01-09] MEDS: VALSARTAN 160 MG TABLET PO SCH (18:26)
[2017-01-10] MEDS: IPRATROPIUM/ALBUTEROL 0.5-2.5 MG/3 ML AMPUL NEB SCH ×4 (02:03→19:41)
[2017-01-10] MEDS: HALOPERIDOL 5 MG TABLET PO SCH ×3 (02:46→18:16)
[2017-01-10] MEDS: CLONIDINE HCL 0.1 MG TABLET PO SCH ×3 (05:10→21:40)
[2017-01-10] MEDS: OLANZAPINE 5 MG TABLET PO SCH ×3 (05:10→21:39)
[2017-01-10] MEDS: LORAZEPAM 1 MG TABLET PO SCH (05:10)
--- NOTE | 2017-01-10 09:00 | PDOC PROGRESS REPORT ---
Subjective Progress Note for:: 01/10/17 Subjective:: No reported diarrhea. No respiratory distress nor temperature spikes reported as well. Patient comfortable in bed without specific complaints. Physical Exam Vital Signs: Temp Pulse Resp BP Pulse Ox 98.8 F 76 14 146/89 H 94 01/10/17 04:00 01/10/17 08:06 01/10/17 08:06 01/10/17 04:00 01/10/17 04:00 Intake & Output 01/09/17 01/10/17 01/11/17 06:59 06:59 06:59 Intake Total 1390 2230 Output Total 150 Balance 1240 2230 Weight 76.1 kg 75.7 kg General appearance: PRESENT: no acute distress Head exam: PRESENT: normocephalic Eye exam: PRESENT: EOMI Mouth exam: PRESENT: moist, neck supple Neck exam: ABSENT: JVD Respiratory exam: PRESENT: rhonchi - Occasional more transmitted sounds, unlabored. ABSENT: rales, wheezes Cardiovascular exam: PRESENT: RRR. ABSENT: gallop GI/Abdominal exam: PRESENT: hyperactive bowel sounds, soft. ABSENT: distended, tenderness Extremities exam: ABSENT: pedal edema Skin exam: PRESENT: dry, warm. ABSENT: cyanosis Results Laboratory Results: 01/07/17 10:20 01/07/17 10:20 Impressions: Head CT 12/29/16 10:22 IMPRESSION: Limited study. No acute intracranial changes EVIDENCE OF ACUTE STROKE: NO. Abdomen/Pelvis CT 12/29/16 11:27 IMPRESSION: No acute findings over the chest abdomen or pelvis Cervical Spine CT 12/29/16 11:27 IMPRESSION: Multilevel central and foraminal stenosis. No acute changes. Chest CT 12/29/16 11:27 IMPRESSION: No acute findings over the chest abdomen or pelvis KUB X-Ray 12/30/16 06:00 IMPRESSION: Persistent large amount of stool in the ascending colon. Distended small bowel loops, suspect a functional obstruction due to right- sided colon constipation Chest X-Ray 01/01/17 00:00 IMPRESSION: Persistent left basilar opacity and left effusion. Cardiac enlargement without overt failure. Modified Barium Swallow 01/02/17 00:00 IMPRESSION: TRACE ASPIRATION SEEN WITH THIN AND PUREED CONSISTENCIES.PLEASE SEE SPEECH PATHOLOGIST REPORT FOR OTHER FINDINGS AND RECOMMENDATIONS. Shoulder X-Ray 01/03/17 00:00 IMPRESSION: No acute findings. Chronic right distal clavicular fracture. Guidance Fluoroscopy 01/06/17 00:00 IMPRESSION: SUCCESSFUL PLACEMENT OF A 5 FR DUAL LUMEN 42 CM PICC IN THE LEFT BASILIC VEIN. PICC Line Insertion 01/06/17 04:28 IMPRESSION: SUCCESSFUL PLACEMENT OF A 5 FR DUAL LUMEN 42 CM PICC IN THE LEFT BASILIC VEIN. Interventional Vascular Procedure 01/06/17 04:29 IMPRESSION: SUCCESSFUL PLACEMENT OF A 5 FR DUAL LUMEN 42 CM PICC IN THE LEFT BASILIC VEIN. Assessment & Plan - Diagnosis (1) Acute metabolic encephalopathy Is this a current diagnosis for this admission?: Yes (2) Sepsis Qualifiers: Sepsis type: Streptococcus, unspecified Qualified Code(s): A40.9 - Streptococcal sepsis, unspecified; A40 - Streptococcal sepsis Is this a current diagnosis for this admission?: Yes (3) Endocarditis of prosthetic valve Qualifiers: Encounter type: subsequent encounter Qualified Code(s): T82.6XXD - Infection and inflammatory reaction due to cardiac valve prosthesis, subsequent encounter Is this a current diagnosis for this admission?: Yes (4) Acute kidney injury superimposed on chronic kidney disease Is this a current diagnosis for this admission?: Yes (5) Acute cystitis Qualifiers: Hematuria presence: without hematuria Qualified Code(s): N30.00 - Acute cystitis without hematuria Is this a current diagnosis for this admission?: Yes (6) Aspiration pneumonia Qualifiers: Aspiration pneumonia type: unspecified Laterality: unspecified laterality Lung location: unspecified part of lung Qualified Code(s): J69.0 - Pneumonitis due to inhalation of food and vomit Is this a current diagnosis for this admission?: Yes (7) Constipation Qualifiers: Constipation type: unspecified constipation type Qualified Code(s): K59.00 - Constipation, unspecified Is this a current diagnosis for this admission?: Yes (8) Dysphagia Qualifiers: Dysphagia type: unspecified Qualified Code(s): R13.10 - Dysphagia, unspecified Is this a current diagnosis for this admission?: Yes (9) Schizo-affective schizophrenia, chronic condition Is this a current diagnosis for this admission?: Yes (10) Chronic obstructive lung disease Is this a current diagnosis for this admission?: Yes (11) Diabetes mellitus type 2 Is this a current diagnosis for this admission?: Yes - Time Time Spent with patient: Less than 15 minutes - Plan Summary Plan Summary: Continue current antibiotics. [facility]. Continue supportive care. Routine BMP and CBC.
[2017-01-10] MEDS: TAMSULOSIN HCL 0.4 MG CAP.SR.24H PO SCH (11:53)
[2017-01-10] MEDS: METOPROLOL TARTRATE 25 MG TABLET PO SCH ×2 (11:54→21:41)
[2017-01-10] MEDS: ASPIRIN 81 MG TABLET, CHEWABLE PO SCH (11:54)
[2017-01-10] MEDS: NORMAL SALINE 10 ML SDV (SCHEDULED) IV SCH ×2 (11:55→22:14)
[2017-01-10] MEDS: LAMOTRIGINE 100 MG TABLET PO SCH ×2 (11:55→21:39)
[2017-01-10] MEDS: POLYETHYLENE GLYCOL 3350 POWDER 17 GM/1 PACKET PO SCH (11:55)
[2017-01-10] MEDS: LAMOTRIGINE 25 MG TAB.CHEW PO SCH ×2 (11:57→21:41)
[2017-01-10] MEDS: VALSARTAN 160 MG TABLET PO SCH (18:16)
[2017-01-10] MEDS: CEFTRIAXONE 2 GM/D5W RTU 2 GM/50 ML RTUPB IV SCH (18:16)
[2017-01-10] MEDS: ACETAMINOPHEN 325 MG TABLET PO PRN (23:34)
[2017-01-11] MEDS: IPRATROPIUM/ALBUTEROL 0.5-2.5 MG/3 ML AMPUL NEB SCH ×4 (00:54→20:33)
[2017-01-11] MEDS: HALOPERIDOL 5 MG TABLET PO SCH ×3 (01:16→18:09)
[2017-01-11] MEDS: OLANZAPINE 5 MG TABLET PO SCH ×3 (05:17→21:33)
[2017-01-11] MEDS: CLONIDINE HCL 0.1 MG TABLET PO SCH ×3 (05:17→21:31)
[2017-01-11 05:42] LABS: HEMATOCRIT 26.7 % (37.9-51.0); HEMOGLOBIN 8.9 g/dL (13.5-17.0); MEAN CORPUSCULAR HEMOGLOBIN 22.3 pg (27.0-33.4); MEAN CORPUSCULAR HGB CONC 33.2 g/dL (32.0-36.0); MEAN CORPUSCULAR VOLUME 67 fl (80-97); RED BLOOD COUNT 3.98 10^6/uL (4.35-5.55); RED CELL DISTRIBUTION WIDTH 14.1 % (11.5-14.0); WHITE BLOOD COUNT 12.5 10^3/uL (4.0-10.5)
[2017-01-11 06:06] LABS: ANION GAP 11 (5-19); BLOOD UREA NITROGEN 14 mg/dL (7-20); CALCIUM 9.2 mg/dL (8.4-10.2); CARBON DIOXIDE 31 mmol/L (22-30); CHLORIDE 98 mmol/L (98-107); CREATININE RESULT 1.25 mg/dL (0.52-1.25); GLUCOSE 132 mg/dL (75-110); POTASSIUM 3.9 mmol/L (3.6-5.0); SODIUM 139.8 mmol/L (137-145)
[2017-01-11] MEDS: LAMOTRIGINE 25 MG TAB.CHEW PO SCH ×2 (10:03→21:33)
[2017-01-11] MEDS: POLYETHYLENE GLYCOL 3350 POWDER 17 GM/1 PACKET PO SCH (10:03)
[2017-01-11] MEDS: ASPIRIN 81 MG TABLET, CHEWABLE PO SCH (10:03)
[2017-01-11] MEDS: NORMAL SALINE 10 ML SDV (SCHEDULED) IV SCH ×2 (10:03→21:39)
[2017-01-11] MEDS: TAMSULOSIN HCL 0.4 MG CAP.SR.24H PO SCH (10:03)
[2017-01-11] MEDS: METOPROLOL TARTRATE 25 MG TABLET PO SCH ×2 (10:03→21:31)
[2017-01-11] MEDS: LAMOTRIGINE 100 MG TABLET PO SCH ×2 (10:03→21:31)
--- NOTE | 2017-01-11 11:32 | PDOC PROGRESS REPORT ---
Subjective Progress Note for:: 01/11/17 Subjective:: Patient at times will be uncooperative as reported by staff. Patient's caregiver in a [place] [facility] is available. Otherwise no reported fever or chills nausea vomiting or diarrhea. Oral intake is fair. Physical Exam Vital Signs: Temp Pulse Resp BP Pulse Ox 98.1 F 74 19 139/85 H 99 01/11/17 04:01 01/11/17 04:01 01/11/17 04:01 01/11/17 04:01 01/11/17 04:01 Intake & Output 01/10/17 01/11/17 01/12/17 06:59 06:59 06:59 Intake Total 2230 290 Balance 2230 290 Weight 75.7 kg 75 kg General appearance: PRESENT: no acute distress, cooperative Head exam: PRESENT: normocephalic Eye exam: PRESENT: EOMI Mouth exam: PRESENT: moist Neck exam: ABSENT: JVD Cardiovascular exam: PRESENT: RRR. ABSENT: gallop GI/Abdominal exam: PRESENT: soft. ABSENT: distended, tenderness Neurological exam: PRESENT: alert, awake Psychiatric exam: PRESENT: anxious - Slightly. ABSENT: agitated Focused psych exam: ABSENT: restlessness Results Laboratory Results: 01/11/17 05:15 01/11/17 05:15 01/11/17 01/11/17 05:15 05:15 WBC 12.5 H RBC 3.98 L Hgb 8.9 L Hct 26.7 L MCV 67 L MCH 22.3 L MCHC 33.2 RDW 14.1 H Plt Count 561 H Sodium 139.8 Potassium 3.9 Chloride 98 Carbon Dioxide 31 H Anion Gap 11 BUN 14 Creatinine 1.25 Est GFR ( Amer) > 60 Est GFR (Non-Af Amer) 57 L Glucose 132 H Calcium 9.2 Impressions: Head CT 12/29/16 10:22 IMPRESSION: Limited study. No acute intracranial changes EVIDENCE OF ACUTE STROKE: NO. Abdomen/Pelvis CT 12/29/16 11:27 IMPRESSION: No acute findings over the chest abdomen or pelvis Cervical Spine CT 12/29/16 11:27 IMPRESSION: Multilevel central and foraminal stenosis. No acute changes. Chest CT 12/29/16 11:27 IMPRESSION: No acute findings over the chest abdomen or pelvis KUB X-Ray 12/30/16 06:00 IMPRESSION: Persistent large amount of stool in the ascending colon. Distended small bowel loops, suspect a functional obstruction due to right- sided colon constipation Chest X-Ray 01/01/17 00:00 IMPRESSION: Persistent left basilar opacity and left effusion. Cardiac enlargement without overt failure. Modified Barium Swallow 01/02/17 00:00 IMPRESSION: TRACE ASPIRATION SEEN WITH THIN AND PUREED CONSISTENCIES.PLEASE SEE SPEECH PATHOLOGIST REPORT FOR OTHER FINDINGS AND RECOMMENDATIONS. Shoulder X-Ray 01/03/17 00:00 IMPRESSION: No acute findings. Chronic right distal clavicular fracture. Guidance Fluoroscopy 01/06/17 00:00 IMPRESSION: SUCCESSFUL PLACEMENT OF A 5 FR DUAL LUMEN 42 CM PICC IN THE LEFT BASILIC VEIN. PICC Line Insertion 01/06/17 04:28 IMPRESSION: SUCCESSFUL PLACEMENT OF A 5 FR DUAL LUMEN 42 CM PICC IN THE LEFT BASILIC VEIN. Interventional Vascular Procedure 01/06/17 04:29 IMPRESSION: SUCCESSFUL PLACEMENT OF A 5 FR DUAL LUMEN 42 CM PICC IN THE LEFT BASILIC VEIN. Assessment & Plan - Diagnosis (1) Acute metabolic encephalopathy Is this a current diagnosis for this admission?: Yes (2) Sepsis Qualifiers: Sepsis type: Streptococcus, unspecified Qualified Code(s): A40.9 - Streptococcal sepsis, unspecified; A40 - Streptococcal sepsis Is this a current diagnosis for this admission?: Yes (3) Endocarditis of prosthetic valve Qualifiers: Encounter type: subsequent encounter Qualified Code(s): T82.6XXD - Infection and inflammatory reaction due to cardiac valve prosthesis, subsequent encounter Is this a current diagnosis for this admission?: Yes (4) Acute kidney injury superimposed on chronic kidney disease Is this a current diagnosis for this admission?: Yes (5) Acute cystitis Qualifiers: Hematuria presence: without hematuria Qualified Code(s): N30.00 - Acute cystitis without hematuria Is this a current diagnosis for this admission?: Yes (6) Aspiration pneumonia Qualifiers: Aspiration pneumonia type: unspecified Laterality: unspecified laterality Lung location: unspecified part of lung Qualified Code(s): J69.0 - Pneumonitis due to inhalation of food and vomit Is this a current diagnosis for this admission?: Yes (7) Constipation Qualifiers: Constipation type: unspecified constipation type Qualified Code(s): K59.00 - Constipation, unspecified Is this a current diagnosis for this admission?: Yes (8) Dysphagia Qualifiers: Dysphagia type: unspecified Qualified Code(s): R13.10 - Dysphagia, unspecified Is this a current diagnosis for this admission?: Yes (9) Schizo-affective schizophrenia, chronic condition Is this a current diagnosis for this admission?: Yes (10) Chronic obstructive lung disease Is this a current diagnosis for this admission?: Yes (11) Diabetes mellitus type 2 Is this a current diagnosis for this admission?: Yes - Time Time Spent with patient: Less than 15 minutes - Plan Summary Plan Summary: Continue current antibiotics. Awaiting facility for IV antibiotic infusion. Continue current antipsychotics.
[2017-01-11] MEDS: ACETAMINOPHEN 325 MG TABLET PO PRN (16:26)
[2017-01-11] MEDS: VALSARTAN 160 MG TABLET PO SCH (18:09)
[2017-01-11] MEDS: CEFTRIAXONE 2 GM/D5W RTU 2 GM/50 ML RTUPB IV SCH (18:09)
[2017-01-12] MEDS: HALOPERIDOL 5 MG TABLET PO SCH ×3 (01:58→17:11)
[2017-01-12] MEDS: IPRATROPIUM/ALBUTEROL 0.5-2.5 MG/3 ML AMPUL NEB SCH ×4 (01:58→19:52)
[2017-01-12] MEDS: OLANZAPINE 5 MG TABLET PO SCH ×3 (05:41→22:27)
[2017-01-12] MEDS: CLONIDINE HCL 0.1 MG TABLET PO SCH ×3 (05:41→22:27)
--- NOTE | 2017-01-12 11:04 | PDOC PROGRESS REPORT ---
Subjective Progress Note for:: 01/12/17 Subjective:: Patient reported with low-grade fever. No bowel movement for the last 4 days. No respiratory distress nausea vomiting. Not on indwelling [place] catheter. Reportedly with some headache. Physical Exam Vital Signs: Temp Pulse Resp BP Pulse Ox 98 F 86 18 149/87 H 96 01/11/17 20:02 01/12/17 08:51 01/12/17 08:51 01/11/17 20:02 01/12/17 08:51 Intake & Output 01/11/17 01/12/17 01/13/17 06:59 06:59 06:59 Intake Total 290 450 Balance 290 450 Weight 75 kg 76.2 kg General appearance: PRESENT: no acute distress Head exam: PRESENT: normocephalic Eye exam: PRESENT: EOMI Mouth exam: PRESENT: moist Neurological exam: PRESENT: alert, awake Psychiatric exam: ABSENT: agitated, anxious Focused psych exam: ABSENT: restlessness Skin exam: PRESENT: dry, warm. ABSENT: cyanosis Results Laboratory Results: 01/11/17 05:15 01/11/17 05:15 Impressions: Head CT 12/29/16 10:22 IMPRESSION: Limited study. No acute intracranial changes EVIDENCE OF ACUTE STROKE: NO. Abdomen/Pelvis CT 12/29/16 11:27 IMPRESSION: No acute findings over the chest abdomen or pelvis Cervical Spine CT 12/29/16 11:27 IMPRESSION: Multilevel central and foraminal stenosis. No acute changes. Chest CT 12/29/16 11:27 IMPRESSION: No acute findings over the chest abdomen or pelvis KUB X-Ray 12/30/16 06:00 IMPRESSION: Persistent large amount of stool in the ascending colon. Distended small bowel loops, suspect a functional obstruction due to right- sided colon constipation Chest X-Ray 01/01/17 00:00 IMPRESSION: Persistent left basilar opacity and left effusion. Cardiac enlargement without overt failure. Modified Barium Swallow 01/02/17 00:00 IMPRESSION: TRACE ASPIRATION SEEN WITH THIN AND PUREED CONSISTENCIES.PLEASE SEE SPEECH PATHOLOGIST REPORT FOR OTHER FINDINGS AND RECOMMENDATIONS. Shoulder X-Ray 01/03/17 00:00 IMPRESSION: No acute findings. Chronic right distal clavicular fracture. Guidance Fluoroscopy 01/06/17 00:00 IMPRESSION: SUCCESSFUL PLACEMENT OF A 5 FR DUAL LUMEN 42 CM PICC IN THE LEFT BASILIC VEIN. PICC Line Insertion 01/06/17 04:28 IMPRESSION: SUCCESSFUL PLACEMENT OF A 5 FR DUAL LUMEN 42 CM PICC IN THE LEFT BASILIC VEIN. Interventional Vascular Procedure 01/06/17 04:29 IMPRESSION: SUCCESSFUL PLACEMENT OF A 5 FR DUAL LUMEN 42 CM PICC IN THE LEFT BASILIC VEIN. Assessment & Plan - Diagnosis (1) Acute metabolic encephalopathy Is this a current diagnosis for this admission?: Yes (2) Sepsis Qualifiers: Sepsis type: Streptococcus, unspecified Qualified Code(s): A40.9 - Streptococcal sepsis, unspecified; A40 - Streptococcal sepsis Is this a current diagnosis for this admission?: Yes (3) Endocarditis of prosthetic valve Qualifiers: Encounter type: subsequent encounter Qualified Code(s): T82.6XXD - Infection and inflammatory reaction due to cardiac valve prosthesis, subsequent encounter Is this a current diagnosis for this admission?: Yes (4) Acute kidney injury superimposed on chronic kidney disease Is this a current diagnosis for this admission?: Yes (5) Acute cystitis Qualifiers: Hematuria presence: without hematuria Qualified Code(s): N30.00 - Acute cystitis without hematuria Is this a current diagnosis for this admission?: Yes (6) Aspiration pneumonia Qualifiers: Aspiration pneumonia type: unspecified Laterality: unspecified laterality Lung location: unspecified part of lung Qualified Code(s): J69.0 - Pneumonitis due to inhalation of food and vomit Is this a current diagnosis for this admission?: Yes (7) Constipation Qualifiers: Constipation type: unspecified constipation type Qualified Code(s): K59.00 - Constipation, unspecified Is this a current diagnosis for this admission?: Yes (8) Dysphagia Qualifiers: Dysphagia type: unspecified Qualified Code(s): R13.10 - Dysphagia, unspecified Is this a current diagnosis for this admission?: Yes (9) Schizo-affective schizophrenia, chronic condition Is this a current diagnosis for this admission?: Yes (10) Chronic obstructive lung disease Is this a current diagnosis for this admission?: Yes (11) Diabetes mellitus type 2 Is this a current diagnosis for this admission?: Yes - Time Time Spent with patient: 15-24 minutes - Plan Summary Plan Summary: Low-grade fever probably from underlying obstipation or impaction. We will try to titrate of magnesia. Resume MiraLAX and senna. Continue supportive care. We will transfer her to the longterm in the morning if afebrile.
[2017-01-12] MEDS: ACETAMINOPHEN 325 MG TABLET PO PRN (11:23)
[2017-01-12] MEDS: ASPIRIN 81 MG TABLET, CHEWABLE PO SCH (11:23)
[2017-01-12] MEDS: LAMOTRIGINE 100 MG TABLET PO SCH ×2 (11:24→22:27)
[2017-01-12] MEDS: TAMSULOSIN HCL 0.4 MG CAP.SR.24H PO SCH (11:24)
[2017-01-12] MEDS: METOPROLOL TARTRATE 25 MG TABLET PO SCH ×2 (11:24→22:27)
[2017-01-12] MEDS: POLYETHYLENE GLYCOL 3350 POWDER 17 GM/1 PACKET PO SCH (11:24)
[2017-01-12] MEDS: LAMOTRIGINE 25 MG TAB.CHEW PO SCH ×2 (11:24→22:27)
[2017-01-12] MEDS: NORMAL SALINE 10 ML SDV (SCHEDULED) IV SCH ×2 (11:25→22:27)
[2017-01-12] MEDS ORDERED: MAGNESIUM CITRATE 296 ML BOTTLE PO ONE (11:30)
[2017-01-12] MEDS: NORMAL SALINE 10 ML SDV (AFTER EACH USE) IV PRN (17:10)
[2017-01-12] MEDS: CEFTRIAXONE 2 GM/D5W RTU 2 GM/50 ML RTUPB IV SCH (17:11)
[2017-01-12] MEDS: VALSARTAN 160 MG TABLET PO SCH (17:11)
[2017-01-13] MEDS: IPRATROPIUM/ALBUTEROL 0.5-2.5 MG/3 ML AMPUL NEB SCH ×3 (02:22→14:21)
[2017-01-13] MEDS: TRAMADOL HCL 50 MG TABLET PO PRN (03:01)
[2017-01-13] MEDS: HALOPERIDOL 5 MG TABLET PO SCH ×3 (03:01→18:07)
[2017-01-13] MEDS: OLANZAPINE 5 MG TABLET PO SCH ×3 (05:48→23:53)
[2017-01-13] MEDS: CLONIDINE HCL 0.1 MG TABLET PO SCH ×3 (05:48→23:53)
--- NOTE | 2017-01-13 09:23 | PDOC PROGRESS REPORT ---
Subjective Progress Note for:: 01/13/17 Subjective:: No reported complaints nor restlessness nor agitation. Still without any bowel movement. No temperature spikes noted. Low-grade fever seems to be improving. Physical Exam Vital Signs: Temp Pulse Resp BP Pulse Ox 97.7 F 74 18 162/77 H 99 01/13/17 07:28 01/13/17 07:28 01/13/17 07:28 01/13/17 07:28 01/13/17 07:28 Intake & Output 01/12/17 01/13/17 01/14/17 06:59 06:59 06:59 Intake Total 450 600 Balance 450 600 Weight 76.2 kg 73.1 kg General appearance: PRESENT: no acute distress, cooperative Head exam: PRESENT: normocephalic Eye exam: PRESENT: EOMI Mouth exam: PRESENT: moist, neck supple Neck exam: ABSENT: JVD Respiratory exam: PRESENT: clear to auscultation daxa Cardiovascular exam: PRESENT: RRR GI/Abdominal exam: ABSENT: distended Extremities exam: ABSENT: pedal edema Neurological exam: PRESENT: alert, awake Skin exam: PRESENT: dry, warm. ABSENT: cyanosis Results Laboratory Results: 01/11/17 05:15 01/11/17 05:15 Impressions: Head CT 12/29/16 10:22 IMPRESSION: Limited study. No acute intracranial changes EVIDENCE OF ACUTE STROKE: NO. Abdomen/Pelvis CT 12/29/16 11:27 IMPRESSION: No acute findings over the chest abdomen or pelvis Cervical Spine CT 12/29/16 11:27 IMPRESSION: Multilevel central and foraminal stenosis. No acute changes. Chest CT 12/29/16 11:27 IMPRESSION: No acute findings over the chest abdomen or pelvis KUB X-Ray 12/30/16 06:00 IMPRESSION: Persistent large amount of stool in the ascending colon. Distended small bowel loops, suspect a functional obstruction due to right- sided colon constipation Chest X-Ray 01/01/17 00:00 IMPRESSION: Persistent left basilar opacity and left effusion. Cardiac enlargement without overt failure. Modified Barium Swallow 01/02/17 00:00 IMPRESSION: TRACE ASPIRATION SEEN WITH THIN AND PUREED CONSISTENCIES.PLEASE SEE SPEECH PATHOLOGIST REPORT FOR OTHER FINDINGS AND RECOMMENDATIONS. Shoulder X-Ray 01/03/17 00:00 IMPRESSION: No acute findings. Chronic right distal clavicular fracture. Guidance Fluoroscopy 01/06/17 00:00 IMPRESSION: SUCCESSFUL PLACEMENT OF A 5 FR DUAL LUMEN 42 CM PICC IN THE LEFT BASILIC VEIN. PICC Line Insertion 01/06/17 04:28 IMPRESSION: SUCCESSFUL PLACEMENT OF A 5 FR DUAL LUMEN 42 CM PICC IN THE LEFT BASILIC VEIN. Interventional Vascular Procedure 01/06/17 04:29 IMPRESSION: SUCCESSFUL PLACEMENT OF A 5 FR DUAL LUMEN 42 CM PICC IN THE LEFT BASILIC VEIN. Assessment & Plan - Diagnosis (1) Acute metabolic encephalopathy Is this a current diagnosis for this admission?: Yes (2) Sepsis Qualifiers: Sepsis type: Streptococcus, unspecified Qualified Code(s): A40.9 - Streptococcal sepsis, unspecified; A40 - Streptococcal sepsis Is this a current diagnosis for this admission?: Yes (3) Endocarditis of prosthetic valve Qualifiers: Encounter type: subsequent encounter Qualified Code(s): T82.6XXD - Infection and inflammatory reaction due to cardiac valve prosthesis, subsequent encounter Is this a current diagnosis for this admission?: Yes (4) Acute kidney injury superimposed on chronic kidney disease Is this a current diagnosis for this admission?: Yes (5) Acute cystitis Qualifiers: Hematuria presence: without hematuria Qualified Code(s): N30.00 - Acute cystitis without hematuria Is this a current diagnosis for this admission?: Yes (6) Aspiration pneumonia Qualifiers: Aspiration pneumonia type: unspecified Laterality: unspecified laterality Lung location: unspecified part of lung Qualified Code(s): J69.0 - Pneumonitis due to inhalation of food and vomit Is this a current diagnosis for this admission?: Yes (7) Constipation Qualifiers: Constipation type: unspecified constipation type Qualified Code(s): K59.00 - Constipation, unspecified Is this a current diagnosis for this admission?: Yes (8) Dysphagia Qualifiers: Dysphagia type: unspecified Qualified Code(s): R13.10 - Dysphagia, unspecified Is this a current diagnosis for this admission?: Yes (9) Schizo-affective schizophrenia, chronic condition Is this a current diagnosis for this admission?: Yes (10) Chronic obstructive lung disease Is this a current diagnosis for this admission?: Yes (11) Diabetes mellitus type 2 Is this a current diagnosis for this admission?: Yes - Time Time Spent with patient: Less than 15 minutes - Plan Summary Plan Summary: Continue current antibiotic. Awaiting [facility] facility bed. Try soapsuds enema.
[2017-01-13] MEDS: LAMOTRIGINE 100 MG TABLET PO SCH ×2 (10:06→23:53)
[2017-01-13] MEDS: ASPIRIN 81 MG TABLET, CHEWABLE PO SCH (10:07)
[2017-01-13] MEDS: TAMSULOSIN HCL 0.4 MG CAP.SR.24H PO SCH (10:07)
[2017-01-13] MEDS: POLYETHYLENE GLYCOL 3350 POWDER 17 GM/1 PACKET PO SCH (10:09)
[2017-01-13] MEDS: METOPROLOL TARTRATE 25 MG TABLET PO SCH ×2 (10:09→23:53)
[2017-01-13] MEDS: NORMAL SALINE 10 ML SDV (SCHEDULED) IV SCH (10:12)
[2017-01-13] MEDS: LAMOTRIGINE 25 MG TAB.CHEW PO SCH ×2 (10:14→23:53)
[2017-01-13] MEDS: CEFTRIAXONE 2 GM/D5W RTU 2 GM/50 ML RTUPB IV SCH (17:40)
[2017-01-13] MEDS: VALSARTAN 160 MG TABLET PO SCH (18:07)
[2017-01-13] MEDS ORDERED: IPRATROPIUM/ALBUTEROL 0.5-2.5 MG/3 ML AMPUL NEB PRN (19:51)
[2017-01-14] MEDS: NORMAL SALINE 10 ML SDV (SCHEDULED) IV SCH ×3 (01:47→21:33)
[2017-01-14] MEDS: HALOPERIDOL 5 MG TABLET PO SCH ×3 (01:47→18:02)
[2017-01-14] MEDS: OLANZAPINE 5 MG TABLET PO SCH ×3 (06:25→21:33)
[2017-01-14] MEDS: CLONIDINE HCL 0.1 MG TABLET PO SCH ×3 (06:25→21:33)
[2017-01-14] MEDS: METOPROLOL TARTRATE 25 MG TABLET PO SCH ×2 (09:18→21:33)
[2017-01-14] MEDS: LAMOTRIGINE 100 MG TABLET PO SCH ×2 (09:19→21:33)
[2017-01-14] MEDS: ASPIRIN 81 MG TABLET, CHEWABLE PO SCH (09:20)
[2017-01-14] MEDS: TAMSULOSIN HCL 0.4 MG CAP.SR.24H PO SCH (09:26)
[2017-01-14] MEDS: POLYETHYLENE GLYCOL 3350 POWDER 17 GM/1 PACKET PO SCH (09:26)
--- NOTE | 2017-01-14 09:27 | PDOC PROGRESS REPORT ---
Subjective Progress Note for:: 01/14/17 Subjective:: Unable to give enema as the patient gets agitated during the procedure. They will try again this morning. Reported respiratory distress nausea vomiting nor temperature spikes. Physical Exam Vital Signs: Temp Pulse Resp BP Pulse Ox 98.0 F 78 16 163/78 H 97 01/13/17 20:00 01/13/17 20:00 01/13/17 20:00 01/13/17 20:00 01/13/17 20:00 Intake & Output 01/13/17 01/14/17 01/15/17 06:59 06:59 06:59 Intake Total 600 2805 Balance 600 2805 Weight 73.1 kg 73.1 kg General appearance: PRESENT: no acute distress, cooperative Head exam: PRESENT: normocephalic Eye exam: PRESENT: EOMI Mouth exam: PRESENT: moist, neck supple Respiratory exam: PRESENT: clear to auscultation daxa Neurological exam: PRESENT: alert, awake Psychiatric exam: ABSENT: agitated Focused psych exam: ABSENT: restlessness Results Laboratory Results: 01/11/17 05:15 01/11/17 05:15 Impressions: Head CT 12/29/16 10:22 IMPRESSION: Limited study. No acute intracranial changes EVIDENCE OF ACUTE STROKE: NO. Abdomen/Pelvis CT 12/29/16 11:27 IMPRESSION: No acute findings over the chest abdomen or pelvis Cervical Spine CT 12/29/16 11:27 IMPRESSION: Multilevel central and foraminal stenosis. No acute changes. Chest CT 12/29/16 11:27 IMPRESSION: No acute findings over the chest abdomen or pelvis KUB X-Ray 12/30/16 06:00 IMPRESSION: Persistent large amount of stool in the ascending colon. Distended small bowel loops, suspect a functional obstruction due to right- sided colon constipation Chest X-Ray 01/01/17 00:00 IMPRESSION: Persistent left basilar opacity and left effusion. Cardiac enlargement without overt failure. Modified Barium Swallow 01/02/17 00:00 IMPRESSION: TRACE ASPIRATION SEEN WITH THIN AND PUREED CONSISTENCIES.PLEASE SEE SPEECH PATHOLOGIST REPORT FOR OTHER FINDINGS AND RECOMMENDATIONS. Shoulder X-Ray 01/03/17 00:00 IMPRESSION: No acute findings. Chronic right distal clavicular fracture. Guidance Fluoroscopy 01/06/17 00:00 IMPRESSION: SUCCESSFUL PLACEMENT OF A 5 FR DUAL LUMEN 42 CM PICC IN THE LEFT BASILIC VEIN. PICC Line Insertion 01/06/17 04:28 IMPRESSION: SUCCESSFUL PLACEMENT OF A 5 FR DUAL LUMEN 42 CM PICC IN THE LEFT BASILIC VEIN. Interventional Vascular Procedure 01/06/17 04:29 IMPRESSION: SUCCESSFUL PLACEMENT OF A 5 FR DUAL LUMEN 42 CM PICC IN THE LEFT BASILIC VEIN. Assessment & Plan - Diagnosis (1) Acute metabolic encephalopathy Is this a current diagnosis for this admission?: Yes (2) Sepsis Qualifiers: Sepsis type: Streptococcus, unspecified Qualified Code(s): A40.9 - Streptococcal sepsis, unspecified; A40 - Streptococcal sepsis Is this a current diagnosis for this admission?: Yes (3) Endocarditis of prosthetic valve Qualifiers: Encounter type: subsequent encounter Qualified Code(s): T82.6XXD - Infection and inflammatory reaction due to cardiac valve prosthesis, subsequent encounter Is this a current diagnosis for this admission?: Yes (4) Acute kidney injury superimposed on chronic kidney disease Is this a current diagnosis for this admission?: Yes (5) Acute cystitis Qualifiers: Hematuria presence: without hematuria Qualified Code(s): N30.00 - Acute cystitis without hematuria Is this a current diagnosis for this admission?: Yes (6) Aspiration pneumonia Qualifiers: Aspiration pneumonia type: unspecified Laterality: unspecified laterality Lung location: unspecified part of lung Qualified Code(s): J69.0 - Pneumonitis due to inhalation of food and vomit Is this a current diagnosis for this admission?: Yes (7) Constipation Qualifiers: Constipation type: unspecified constipation type Qualified Code(s): K59.00 - Constipation, unspecified Is this a current diagnosis for this admission?: Yes (8) Dysphagia Qualifiers: Dysphagia type: unspecified Qualified Code(s): R13.10 - Dysphagia, unspecified Is this a current diagnosis for this admission?: Yes (9) Schizo-affective schizophrenia, chronic condition Is this a current diagnosis for this admission?: Yes (10) Chronic obstructive lung disease Is this a current diagnosis for this admission?: Yes (11) Diabetes mellitus type 2 Is this a current diagnosis for this admission?: Yes - Time Time Spent with patient: Less than 15 minutes - Plan Summary Plan Summary: Continue antibiotics. If enema unsuccessful we will try titrate of magnesia again. Awaiting approval by the [facility] for long-term care bed.
[2017-01-14] MEDS: LAMOTRIGINE 25 MG TAB.CHEW PO SCH ×2 (10:56→21:34)
[2017-01-14] MEDS: TRAMADOL HCL 50 MG TABLET PO PRN (13:58)
[2017-01-14] MEDS: VALSARTAN 160 MG TABLET PO SCH (18:03)
[2017-01-15] MEDS: TRAMADOL HCL 50 MG TABLET PO PRN (02:52)
[2017-01-15] MEDS: HALOPERIDOL 5 MG TABLET PO SCH ×3 (02:52→18:08)
[2017-01-15] MEDS: CLONIDINE HCL 0.1 MG TABLET PO SCH ×2 (06:33→13:26)
[2017-01-15] MEDS: OLANZAPINE 5 MG TABLET PO SCH ×2 (06:33→13:26)
[2017-01-15] MEDS: METOPROLOL TARTRATE 25 MG TABLET PO SCH ×2 (09:11→11:26)
[2017-01-15] MEDS: LAMOTRIGINE 100 MG TABLET PO SCH (09:12)
[2017-01-15] MEDS: ASPIRIN 81 MG TABLET, CHEWABLE PO SCH (09:13)
[2017-01-15] MEDS: LAMOTRIGINE 25 MG TAB.CHEW PO SCH (09:13)
[2017-01-15] MEDS: TAMSULOSIN HCL 0.4 MG CAP.SR.24H PO SCH (09:13)
[2017-01-15] MEDS: NORMAL SALINE 10 ML SDV (SCHEDULED) IV SCH ×2 (09:14→22:00)
[2017-01-15] MEDS: POLYETHYLENE GLYCOL 3350 POWDER 17 GM/1 PACKET PO SCH (09:16)
--- NOTE | 2017-01-15 09:55 | PDOC PROGRESS REPORT ---
Subjective Progress Note for:: 01/15/17 Subjective:: No reported distress nor pain. No reported shortness of breath, nausea or vomiting, chills or fever. No reported diarrhea. Tolerating oral intake well. Patient finally had a good bowel movement. No agitation nor restlessness reported. Blood pressure however remains uncontrolled Physical Exam Vital Signs: Temp Pulse Resp BP Pulse Ox 98.1 F 80 20 183/93 H 100 01/15/17 08:06 01/15/17 08:06 01/15/17 08:06 01/15/17 08:06 01/15/17 08:06 Intake & Output 01/14/17 01/15/17 01/16/17 06:59 06:59 06:59 Intake Total 2805 960 Balance 2805 960 Weight 73.1 kg 73.1 kg General appearance: PRESENT: no acute distress, cooperative Eye exam: PRESENT: EOMI Mouth exam: PRESENT: moist, neck supple Respiratory exam: PRESENT: clear to auscultation daxa Cardiovascular exam: PRESENT: RRR Neurological exam: PRESENT: alert, awake Psychiatric exam: ABSENT: agitated Focused psych exam: ABSENT: restlessness Skin exam: PRESENT: dry, warm. ABSENT: cyanosis Results Laboratory Results: 01/11/17 05:15 01/11/17 05:15 Impressions: Head CT 12/29/16 10:22 IMPRESSION: Limited study. No acute intracranial changes EVIDENCE OF ACUTE STROKE: NO. Abdomen/Pelvis CT 12/29/16 11:27 IMPRESSION: No acute findings over the chest abdomen or pelvis Cervical Spine CT 12/29/16 11:27 IMPRESSION: Multilevel central and foraminal stenosis. No acute changes. Chest CT 12/29/16 11:27 IMPRESSION: No acute findings over the chest abdomen or pelvis KUB X-Ray 12/30/16 06:00 IMPRESSION: Persistent large amount of stool in the ascending colon. Distended small bowel loops, suspect a functional obstruction due to right- sided colon constipation Chest X-Ray 01/01/17 00:00 IMPRESSION: Persistent left basilar opacity and left effusion. Cardiac enlargement without overt failure. Modified Barium Swallow 01/02/17 00:00 IMPRESSION: TRACE ASPIRATION SEEN WITH THIN AND PUREED CONSISTENCIES.PLEASE SEE SPEECH PATHOLOGIST REPORT FOR OTHER FINDINGS AND RECOMMENDATIONS. Shoulder X-Ray 01/03/17 00:00 IMPRESSION: No acute findings. Chronic right distal clavicular fracture. Guidance Fluoroscopy 01/06/17 00:00 IMPRESSION: SUCCESSFUL PLACEMENT OF A 5 FR DUAL LUMEN 42 CM PICC IN THE LEFT BASILIC VEIN. PICC Line Insertion 01/06/17 04:28 IMPRESSION: SUCCESSFUL PLACEMENT OF A 5 FR DUAL LUMEN 42 CM PICC IN THE LEFT BASILIC VEIN. Interventional Vascular Procedure 01/06/17 04:29 IMPRESSION: SUCCESSFUL PLACEMENT OF A 5 FR DUAL LUMEN 42 CM PICC IN THE LEFT BASILIC VEIN. Assessment & Plan - Diagnosis (1) Acute metabolic encephalopathy Is this a current diagnosis for this admission?: Yes (2) Sepsis Qualifiers: Sepsis type: Streptococcus, unspecified Qualified Code(s): A40.9 - Streptococcal sepsis, unspecified; A40 - Streptococcal sepsis Is this a current diagnosis for this admission?: Yes (3) Endocarditis of prosthetic valve Qualifiers: Encounter type: subsequent encounter Qualified Code(s): T82.6XXD - Infection and inflammatory reaction due to cardiac valve prosthesis, subsequent encounter Is this a current diagnosis for this admission?: Yes (4) Acute kidney injury superimposed on chronic kidney disease Is this a current diagnosis for this admission?: Yes (5) Acute cystitis Qualifiers: Hematuria presence: without hematuria Qualified Code(s): N30.00 - Acute cystitis without hematuria Is this a current diagnosis for this admission?: Yes (6) Aspiration pneumonia Qualifiers: Aspiration pneumonia type: unspecified Laterality: unspecified laterality Lung location: unspecified part of lung Qualified Code(s): J69.0 - Pneumonitis due to inhalation of food and vomit Is this a current diagnosis for this admission?: Yes (7) Constipation Qualifiers: Constipation type: unspecified constipation type Qualified Code(s): K59.00 - Constipation, unspecified Is this a current diagnosis for this admission?: Yes (8) Dysphagia Qualifiers: Dysphagia type: unspecified Qualified Code(s): R13.10 - Dysphagia, unspecified Is this a current diagnosis for this admission?: Yes (9) Schizo-affective schizophrenia, chronic condition Is this a current diagnosis for this admission?: Yes (10) Chronic obstructive lung disease Is this a current diagnosis for this admission?: Yes (11) Diabetes mellitus type 2 Is this a current diagnosis for this admission?: Yes - Time Time Spent with patient: 15-24 minutes - Plan Summary Plan Summary: Continue antibiotics. Increase metoprolol for blood pressure control. Awaiting approval by the state to go to long-term care facility.
[2017-01-15] MEDS: VALSARTAN 160 MG TABLET PO SCH (18:08)
[2017-01-15] MEDS ORDERED: CEFTRIAXONE RTU 2 GM/D5W 50 ML IV SCH (19:00)
[2017-01-15] MEDS ORDERED: CEFTRIAXONE 2 GM/D5W RTU 2 GM/50 ML RTUPB IV ONE (23:58)
[2017-01-16] MEDS: CEFTRIAXONE 2 GM/D5W RTU 2 GM/50 ML RTUPB IV SCH ×2 (00:02→21:17)
[2017-01-16] MEDS: HALOPERIDOL 5 MG TABLET PO SCH ×3 (04:27→17:43)
[2017-01-16] MEDS: LAMOTRIGINE 25 MG TAB.CHEW PO SCH ×3 (04:27→21:12)
[2017-01-16] MEDS: OLANZAPINE 5 MG TABLET PO SCH ×4 (04:27→21:14)
[2017-01-16] MEDS: METOPROLOL TARTRATE 25 MG TABLET PO SCH ×3 (04:27→21:14)
[2017-01-16] MEDS: LAMOTRIGINE 100 MG TABLET PO SCH ×3 (04:27→21:15)
[2017-01-16] MEDS: CLONIDINE HCL 0.1 MG TABLET PO SCH ×4 (04:27→21:12)
[2017-01-16] MEDS: TAMSULOSIN HCL 0.4 MG CAP.SR.24H PO SCH (09:33)
[2017-01-16] MEDS: ASPIRIN 81 MG TABLET, CHEWABLE PO SCH (09:33)
[2017-01-16] MEDS: POLYETHYLENE GLYCOL 3350 POWDER 17 GM/1 PACKET PO SCH (09:39)
[2017-01-16] MEDS: NORMAL SALINE 10 ML SDV (SCHEDULED) IV SCH ×2 (09:39→21:16)
--- NOTE | 2017-01-16 14:06 | PDOC PROGRESS REPORT ---
Subjective Progress Note for:: 01/16/17 Subjective:: Patient is calm and comfortable. Today, the patient took his medications according to the staff. For a few days he refuses them. Had bowel movements 2 days ago. No reported diarrhea. No respiratory distress or temperature spikes. Physical Exam Vital Signs: Temp Pulse Resp BP Pulse Ox 98.7 F 71 18 185/99 H 98 01/16/17 12:10 01/16/17 12:10 01/16/17 12:10 01/16/17 12:10 01/16/17 12:10 Intake & Output 01/15/17 01/16/17 01/17/17 06:59 06:59 06:59 Intake Total 960 1090 Balance 960 1090 Weight 73.1 kg 73.5 kg General appearance: PRESENT: no acute distress, cooperative Head exam: PRESENT: normocephalic Eye exam: PRESENT: EOMI Neurological exam: PRESENT: alert, awake Psychiatric exam: ABSENT: agitated Focused psych exam: ABSENT: restlessness Skin exam: PRESENT: dry. ABSENT: cyanosis Results Laboratory Results: 01/11/17 05:15 01/11/17 05:15 Impressions: Head CT 12/29/16 10:22 IMPRESSION: Limited study. No acute intracranial changes EVIDENCE OF ACUTE STROKE: NO. Abdomen/Pelvis CT 12/29/16 11:27 IMPRESSION: No acute findings over the chest abdomen or pelvis Cervical Spine CT 12/29/16 11:27 IMPRESSION: Multilevel central and foraminal stenosis. No acute changes. Chest CT 12/29/16 11:27 IMPRESSION: No acute findings over the chest abdomen or pelvis KUB X-Ray 12/30/16 06:00 IMPRESSION: Persistent large amount of stool in the ascending colon. Distended small bowel loops, suspect a functional obstruction due to right- sided colon constipation Chest X-Ray 01/01/17 00:00 IMPRESSION: Persistent left basilar opacity and left effusion. Cardiac enlargement without overt failure. Modified Barium Swallow 01/02/17 00:00 IMPRESSION: TRACE ASPIRATION SEEN WITH THIN AND PUREED CONSISTENCIES.PLEASE SEE SPEECH PATHOLOGIST REPORT FOR OTHER FINDINGS AND RECOMMENDATIONS. Shoulder X-Ray 01/03/17 00:00 IMPRESSION: No acute findings. Chronic right distal clavicular fracture. Guidance Fluoroscopy 01/06/17 00:00 IMPRESSION: SUCCESSFUL PLACEMENT OF A 5 FR DUAL LUMEN 42 CM PICC IN THE LEFT BASILIC VEIN. PICC Line Insertion 01/06/17 04:28 IMPRESSION: SUCCESSFUL PLACEMENT OF A 5 FR DUAL LUMEN 42 CM PICC IN THE LEFT BASILIC VEIN. Interventional Vascular Procedure 01/06/17 04:29 IMPRESSION: SUCCESSFUL PLACEMENT OF A 5 FR DUAL LUMEN 42 CM PICC IN THE LEFT BASILIC VEIN. Assessment & Plan - Diagnosis (1) Acute metabolic encephalopathy Is this a current diagnosis for this admission?: Yes (2) Sepsis Qualifiers: Sepsis type: Streptococcus, unspecified Qualified Code(s): A40.9 - Streptococcal sepsis, unspecified; A40 - Streptococcal sepsis Is this a current diagnosis for this admission?: Yes (3) Endocarditis of prosthetic valve Qualifiers: Encounter type: subsequent encounter Qualified Code(s): T82.6XXD - Infection and inflammatory reaction due to cardiac valve prosthesis, subsequent encounter Is this a current diagnosis for this admission?: Yes (4) Acute kidney injury superimposed on chronic kidney disease Is this a current diagnosis for this admission?: Yes (5) Acute cystitis Qualifiers: Hematuria presence: without hematuria Qualified Code(s): N30.00 - Acute cystitis without hematuria Is this a current diagnosis for this admission?: Yes (6) Aspiration pneumonia Qualifiers: Aspiration pneumonia type: unspecified Laterality: unspecified laterality Lung location: unspecified part of lung Qualified Code(s): J69.0 - Pneumonitis due to inhalation of food and vomit Is this a current diagnosis for this admission?: Yes (7) Constipation Qualifiers: Constipation type: unspecified constipation type Qualified Code(s): K59.00 - Constipation, unspecified Is this a current diagnosis for this admission?: Yes (8) Dysphagia Qualifiers: Dysphagia type: unspecified Qualified Code(s): R13.10 - Dysphagia, unspecified Is this a current diagnosis for this admission?: Yes (9) Schizo-affective schizophrenia, chronic condition Is this a current diagnosis for this admission?: Yes (10) Chronic obstructive lung disease Is this a current diagnosis for this admission?: Yes (11) Diabetes mellitus type 2 Is this a current diagnosis for this admission?: Yes - Time Time Spent with patient: Less than 15 minutes - Plan Summary Plan Summary: Continue current medications. Patient took his medications today. If blood pressure still increase we will try to titrate antihypertensive medications. In the meantime continue current antibiotics and awaiting approval by the state for the patient to go to care home facility.
[2017-01-16] MEDS: VALSARTAN 160 MG TABLET PO SCH (17:43)
[2017-01-17] MEDS: HALOPERIDOL 5 MG TABLET PO SCH ×3 (01:24→17:32)
[2017-01-17] MEDS: OLANZAPINE 5 MG TABLET PO SCH ×3 (05:20→23:09)
[2017-01-17] MEDS: CLONIDINE HCL 0.1 MG TABLET PO SCH ×3 (05:20→23:08)
[2017-01-17] MEDS: LAMOTRIGINE 100 MG TABLET PO SCH ×2 (09:30→23:09)
[2017-01-17] MEDS: METOPROLOL TARTRATE 25 MG TABLET PO SCH ×2 (09:31→23:10)
[2017-01-17] MEDS: TAMSULOSIN HCL 0.4 MG CAP.SR.24H PO SCH (09:31)
[2017-01-17] MEDS: ASPIRIN 81 MG TABLET, CHEWABLE PO SCH (09:31)
[2017-01-17] MEDS: POLYETHYLENE GLYCOL 3350 POWDER 17 GM/1 PACKET PO SCH (09:33)
[2017-01-17] MEDS: NORMAL SALINE 10 ML SDV (SCHEDULED) IV SCH ×2 (09:33→23:12)
[2017-01-17] MEDS: LAMOTRIGINE 25 MG TAB.CHEW PO SCH ×2 (09:35→23:12)
--- NOTE | 2017-01-17 14:48 | PDOC PROGRESS REPORT ---
Subjective Progress Note for:: 01/17/17 Subjective:: Patient denies any complaints. Nursing staff reports he did not take his medications this morning. Physical Exam Vital Signs: Temp Pulse Resp BP Pulse Ox 97.4 F 66 19 162/80 H 98 01/17/17 12:00 01/17/17 12:00 01/17/17 12:00 01/17/17 12:00 01/17/17 12:00 Intake & Output 01/16/17 01/17/17 01/18/17 06:59 06:59 06:59 Intake Total 1090 760 Balance 1090 760 Weight 73.5 kg 74.3 kg General appearance: PRESENT: no acute distress Eye exam: PRESENT: conjunctiva pink. ABSENT: scleral icterus Mouth exam: PRESENT: moist, tongue midline Neck exam: ABSENT: JVD Respiratory exam: PRESENT: clear to auscultation daxa. ABSENT: rales, rhonchi, wheezes Cardiovascular exam: PRESENT: RRR. ABSENT: diastolic murmur, rubs, systolic murmur GI/Abdominal exam: PRESENT: normal bowel sounds, soft. ABSENT: distended, guarding, mass, organolmegaly, rebound, tenderness Extremities exam: ABSENT: calf tenderness, clubbing, pedal edema Neurological exam: PRESENT: alert, awake, oriented to person, oriented to place. ABSENT: oriented to time, oriented to situation Psychiatric exam: PRESENT: agitated Skin exam: PRESENT: dry, intact, warm. ABSENT: cyanosis, rash Results Laboratory Results: 01/11/17 05:15 01/11/17 05:15 Impressions: Head CT 12/29/16 10:22 IMPRESSION: Limited study. No acute intracranial changes EVIDENCE OF ACUTE STROKE: NO. Abdomen/Pelvis CT 12/29/16 11:27 IMPRESSION: No acute findings over the chest abdomen or pelvis Cervical Spine CT 12/29/16 11:27 IMPRESSION: Multilevel central and foraminal stenosis. No acute changes. Chest CT 12/29/16 11:27 IMPRESSION: No acute findings over the chest abdomen or pelvis KUB X-Ray 12/30/16 06:00 IMPRESSION: Persistent large amount of stool in the ascending colon. Distended small bowel loops, suspect a functional obstruction due to right- sided colon constipation Chest X-Ray 01/01/17 00:00 IMPRESSION: Persistent left basilar opacity and left effusion. Cardiac enlargement without overt failure. Modified Barium Swallow 01/02/17 00:00 IMPRESSION: TRACE ASPIRATION SEEN WITH THIN AND PUREED CONSISTENCIES.PLEASE SEE SPEECH PATHOLOGIST REPORT FOR OTHER FINDINGS AND RECOMMENDATIONS. Shoulder X-Ray 01/03/17 00:00 IMPRESSION: No acute findings. Chronic right distal clavicular fracture. Guidance Fluoroscopy 01/06/17 00:00 IMPRESSION: SUCCESSFUL PLACEMENT OF A 5 FR DUAL LUMEN 42 CM PICC IN THE LEFT BASILIC VEIN. PICC Line Insertion 01/06/17 04:28 IMPRESSION: SUCCESSFUL PLACEMENT OF A 5 FR DUAL LUMEN 42 CM PICC IN THE LEFT BASILIC VEIN. Interventional Vascular Procedure 01/06/17 04:29 IMPRESSION: SUCCESSFUL PLACEMENT OF A 5 FR DUAL LUMEN 42 CM PICC IN THE LEFT BASILIC VEIN. Assessment & Plan - Diagnosis (1) Endocarditis of prosthetic valve Qualifiers: Encounter type: subsequent encounter Qualified Code(s): T82.6XXD - Infection and inflammatory reaction due to cardiac valve prosthesis, subsequent encounter Is this a current diagnosis for this admission?: Yes Plan: Patient is going strep anginosis from blood cultures. He has a PICC line in place and will need 6 weeks of IV antibiotics. Patient is on Rocephin. (2) Sepsis Qualifiers: Sepsis type: Streptococcus, unspecified Qualified Code(s): A40.9 - Streptococcal sepsis, unspecified; A40 - Streptococcal sepsis Is this a current diagnosis for this admission?: Yes Plan: Patient has endocarditis and also had pneumonia and cystitis. Sepsis is resolved. (3) Aspiration pneumonia Qualifiers: Aspiration pneumonia type: unspecified Laterality: unspecified laterality Lung location: unspecified part of lung Qualified Code(s): J69.0 - Pneumonitis due to inhalation of food and vomit Is this a current diagnosis for this admission?: Yes (4) Acute cystitis Qualifiers: Hematuria presence: without hematuria Qualified Code(s): N30.00 - Acute cystitis without hematuria Is this a current diagnosis for this admission?: Yes (5) Constipation Qualifiers: Constipation type: unspecified constipation type Qualified Code(s): K59.00 - Constipation, unspecified Is this a current diagnosis for this admission?: Yes (6) Dysphagia Qualifiers: Dysphagia type: unspecified Qualified Code(s): R13.10 - Dysphagia, unspecified Is this a current diagnosis for this admission?: Yes (7) Schizo-affective schizophrenia, chronic condition Is this a current diagnosis for this admission?: Yes Plan: Patient refused to take his medications this morning. (8) Acute kidney injury superimposed on chronic kidney disease Is this a current diagnosis for this admission?: Yes Plan: The patient's creatinine has normalized. (9) Acute metabolic encephalopathy Is this a current diagnosis for this admission?: Yes Plan: Patient still confused. Is not clear whether this is related to schizophrenia or whether he is still encephalopathic. (10) Chronic obstructive lung disease Is this a current diagnosis for this admission?: Yes Plan: Continue with nebulizers as needed. (11) Diabetes mellitus type 2 Is this a current diagnosis for this admission?: Yes Plan: Continue with sliding scale insulin. - Time Time Spent with patient: 25-34 minutes - Inpatient Certification Medical Necessity: Need for IV Antibiotics - Plan Summary Plan Summary: Awaiting for skilled nurse facility to take the patient for IV antibiotic treatment.
[2017-01-17] MEDS: VALSARTAN 160 MG TABLET PO SCH (17:31)
[2017-01-17] MEDS: CEFTRIAXONE 2 GM/D5W RTU 2 GM/50 ML RTUPB IV SCH (23:11)
[2017-01-17] MEDS: NORMAL SALINE 10 ML SDV (AFTER EACH USE) IV PRN (23:12)
[2017-01-18] MEDS: TRAMADOL HCL 50 MG TABLET PO PRN ×2 (00:34→21:24)
[2017-01-18] MEDS: HALOPERIDOL 5 MG TABLET PO SCH ×3 (02:23→18:13)
[2017-01-18] MEDS: CLONIDINE HCL 0.1 MG TABLET PO SCH ×3 (05:32→21:07)
[2017-01-18] MEDS: OLANZAPINE 5 MG TABLET PO SCH ×3 (05:33→21:06)
[2017-01-18 09:04] LABS: ABSOLUTE EOSINOPHILS # (AUTO) 0.1 10^3/uL (0.0-0.6); ABSOLUTE LYMPHOCYTES (AUTO) 1.5 10^3/uL (0.5-4.7); ABSOLUTE MONOCYTES (AUTO) 0.8 10^3/uL (0.1-1.4); ABSOLUTE NEUT (AUTO) 8.2 10^3/uL (1.7-8.2); BASOPHILS % (AUTO) 0.4 % (0-2); HEMATOCRIT 28.7 % (37.9-51.0); HEMOGLOBIN 9.4 g/dL (13.5-17.0); HGB HCT DIFFERENCE -0.5; LYMPHOCYTES % (AUTO) 14.2 % (13-45); MEAN CORPUSCULAR HEMOGLOBIN 21.9 pg (27.0-33.4); MEAN CORPUSCULAR HGB CONC 32.7 g/dL (32.0-36.0); MEAN CORPUSCULAR VOLUME 67 fl (80-97); MONOCYTES % (AUTO) 7.5 % (3-13); RED CELL DISTRIBUTION WIDTH 14.8 % (11.5-14.0); SEGMENTED NEUTROPHILS % (AUTO) 76.9 % (42-78); WHITE BLOOD COUNT 10.6 10^3/uL (4.0-10.5)
[2017-01-18 09:23] LABS: ANION GAP 14 (5-19); BLOOD UREA NITROGEN 17 mg/dL (7-20); CALCIUM 8.7 mg/dL (8.4-10.2); CARBON DIOXIDE 29 mmol/L (22-30); CHLORIDE 95 mmol/L (98-107); CREATININE RESULT 1.33 mg/dL (0.52-1.25); GLUCOSE 109 mg/dL (75-110); POTASSIUM 4.3 mmol/L (3.6-5.0); SODIUM 137.6 mmol/L (137-145)
[2017-01-18] MEDS: ASPIRIN 81 MG TABLET, CHEWABLE PO SCH (09:34)
[2017-01-18] MEDS: POLYETHYLENE GLYCOL 3350 POWDER 17 GM/1 PACKET PO SCH (09:34)
[2017-01-18] MEDS: TAMSULOSIN HCL 0.4 MG CAP.SR.24H PO SCH (09:35)
[2017-01-18] MEDS: LAMOTRIGINE 100 MG TABLET PO SCH ×2 (09:35→21:07)
[2017-01-18] MEDS: METOPROLOL TARTRATE 25 MG TABLET PO SCH ×2 (09:35→21:09)
[2017-01-18] MEDS: LAMOTRIGINE 25 MG TAB.CHEW PO SCH ×2 (09:37→21:08)
[2017-01-18] MEDS: NORMAL SALINE 10 ML SDV (SCHEDULED) IV SCH ×2 (09:37→21:09)
--- NOTE | 2017-01-18 11:32 | PDOC PROGRESS REPORT ---
Subjective Progress Note for:: 01/18/17 Subjective:: Patient denies any complaints. Physical Exam Vital Signs: Temp Pulse Resp BP Pulse Ox 97.8 F 66 18 151/89 H 98 01/18/17 07:41 01/18/17 07:41 01/18/17 07:41 01/18/17 07:41 01/18/17 07:41 Intake & Output 01/17/17 01/18/17 01/19/17 06:59 06:59 06:59 Intake Total 760 930 Balance 760 930 Weight 74.3 kg 73.6 kg General appearance: PRESENT: no acute distress Eye exam: PRESENT: conjunctiva pink. ABSENT: scleral icterus Mouth exam: PRESENT: moist, tongue midline Neck exam: ABSENT: JVD Respiratory exam: PRESENT: clear to auscultation daxa. ABSENT: rales, rhonchi, wheezes Cardiovascular exam: PRESENT: RRR. ABSENT: diastolic murmur, rubs, systolic murmur GI/Abdominal exam: PRESENT: normal bowel sounds, soft. ABSENT: distended, guarding, mass, organolmegaly, rebound, tenderness Extremities exam: ABSENT: calf tenderness, clubbing, pedal edema Neurological exam: PRESENT: alert, awake, oriented to person, oriented to place , oriented to time, oriented to situation, CN II-XII grossly intact. ABSENT: motor sensory deficit Psychiatric exam: PRESENT: appropriate affect Skin exam: PRESENT: dry, intact, warm. ABSENT: cyanosis, rash Results Laboratory Results: 01/18/17 08:17 01/18/17 08:17 01/18/17 01/18/17 08: 08:17 WBC 10.6 H RBC 4.30 L Hgb 9.4 L Hct 28.7 L MCV 67 L MCH 21.9 L MCHC 32.7 RDW 14.8 H Plt Count 387 Seg Neutrophils % 76.9 Lymphocytes % 14.2 Monocytes % 7.5 Eosinophils % 1.0 Basophils % 0.4 Absolute Neutrophils 8.2 Absolute Lymphocytes 1.5 Absolute Monocytes 0.8 Absolute Eosinophils 0.1 Absolute Basophils 0.0 Sodium 137.6 Potassium 4.3 Chloride 95 L Carbon Dioxide 29 Anion Gap 14 BUN 17 Creatinine 1.33 H Est GFR ( Amer) > 60 Est GFR (Non-Af Amer) 53 L Glucose 109 Calcium 8.7 Impressions: Head CT 12/29/16 10:22 IMPRESSION: Limited study. No acute intracranial changes EVIDENCE OF ACUTE STROKE: NO. Abdomen/Pelvis CT 12/29/16 11:27 IMPRESSION: No acute findings over the chest abdomen or pelvis Cervical Spine CT 12/29/16 11:27 IMPRESSION: Multilevel central and foraminal stenosis. No acute changes. Chest CT 12/29/16 11:27 IMPRESSION: No acute findings over the chest abdomen or pelvis KUB X-Ray 12/30/16 06:00 IMPRESSION: Persistent large amount of stool in the ascending colon. Distended small bowel loops, suspect a functional obstruction due to right- sided colon constipation Chest X-Ray 01/01/17 00:00 IMPRESSION: Persistent left basilar opacity and left effusion. Cardiac enlargement without overt failure. Modified Barium Swallow 01/02/17 00:00 IMPRESSION: TRACE ASPIRATION SEEN WITH THIN AND PUREED CONSISTENCIES.PLEASE SEE SPEECH PATHOLOGIST REPORT FOR OTHER FINDINGS AND RECOMMENDATIONS. Shoulder X-Ray 01/03/17 00:00 IMPRESSION: No acute findings. Chronic right distal clavicular fracture. Guidance Fluoroscopy 01/06/17 00:00 IMPRESSION: SUCCESSFUL PLACEMENT OF A 5 FR DUAL LUMEN 42 CM PICC IN THE LEFT BASILIC VEIN. PICC Line Insertion 01/06/17 04:28 IMPRESSION: SUCCESSFUL PLACEMENT OF A 5 FR DUAL LUMEN 42 CM PICC IN THE LEFT BASILIC VEIN. Interventional Vascular Procedure 01/06/17 04:29 IMPRESSION: SUCCESSFUL PLACEMENT OF A 5 FR DUAL LUMEN 42 CM PICC IN THE LEFT BASILIC VEIN. Assessment & Plan - Diagnosis (1) Endocarditis of prosthetic valve Qualifiers: Encounter type: subsequent encounter Qualified Code(s): T82.6XXD - Infection and inflammatory reaction due to cardiac valve prosthesis, subsequent encounter Is this a current diagnosis for this admission?: Yes Plan: Patient is growing strep anginosis from blood cultures. He has a PICC line in place and will need 6 weeks of IV antibiotics. Patient is on Rocephin. (2) Sepsis Qualifiers: Sepsis type: Streptococcus, unspecified Qualified Code(s): A40.9 - Streptococcal sepsis, unspecified; A40 - Streptococcal sepsis Is this a current diagnosis for this admission?: Yes Plan: Patient has endocarditis and also had pneumonia and cystitis. Sepsis is resolved. (3) Aspiration pneumonia Qualifiers: Aspiration pneumonia type: unspecified Laterality: unspecified laterality Lung location: unspecified part of lung Qualified Code(s): J69.0 - Pneumonitis due to inhalation of food and vomit Is this a current diagnosis for this admission?: Yes (4) Acute cystitis Qualifiers: Hematuria presence: without hematuria Qualified Code(s): N30.00 - Acute cystitis without hematuria Is this a current diagnosis for this admission?: Yes (5) Constipation Qualifiers: Constipation type: unspecified constipation type Qualified Code(s): K59.00 - Constipation, unspecified Is this a current diagnosis for this admission?: Yes (6) Dysphagia Qualifiers: Dysphagia type: unspecified Qualified Code(s): R13.10 - Dysphagia, unspecified Is this a current diagnosis for this admission?: Yes (7) Schizo-affective schizophrenia, chronic condition Is this a current diagnosis for this admission?: Yes Plan: Patient is slightly agitated this morning. (8) Acute kidney injury superimposed on chronic kidney disease Is this a current diagnosis for this admission?: Yes Plan: The patient's creatinine has normalized. (9) Acute metabolic encephalopathy Is this a current diagnosis for this admission?: Yes Plan: Patient still confused. Is not clear whether this is related to schizophrenia or whether he is still encephalopathic. (10) Chronic obstructive lung disease Is this a current diagnosis for this admission?: Yes Plan: Continue with nebulizers as needed. (11) Diabetes mellitus type 2 Is this a current diagnosis for this admission?: Yes Plan: Continue with sliding scale insulin. - Time Time Spent with patient: 25-34 minutes - Inpatient Certification Medical Necessity: Need for IV Antibiotics - Plan Summary Plan Summary: We are waiting [facility] placement for his IV antibiotics.
[2017-01-18] MEDS: VALSARTAN 160 MG TABLET PO SCH (18:13)
[2017-01-18] MEDS: NORMAL SALINE 10 ML SDV (AFTER EACH USE) IV PRN (21:09)
[2017-01-18] MEDS: CEFTRIAXONE 2 GM/D5W RTU 2 GM/50 ML RTUPB IV SCH (21:18)
[2017-01-19] MEDS: HALOPERIDOL 5 MG TABLET PO SCH ×3 (01:06→19:03)
[2017-01-19] MEDS: OLANZAPINE 5 MG TABLET PO SCH ×3 (06:25→23:25)
[2017-01-19] MEDS: CLONIDINE HCL 0.1 MG TABLET PO SCH ×3 (06:25→23:25)
[2017-01-19] MEDS: ASPIRIN 81 MG TABLET, CHEWABLE PO SCH (09:47)
[2017-01-19] MEDS: POLYETHYLENE GLYCOL 3350 POWDER 17 GM/1 PACKET PO SCH (09:47)
[2017-01-19] MEDS: LAMOTRIGINE 100 MG TABLET PO SCH ×2 (09:48→23:25)
[2017-01-19] MEDS: METOPROLOL TARTRATE 25 MG TABLET PO SCH ×2 (09:48→23:25)
[2017-01-19] MEDS: LAMOTRIGINE 25 MG TAB.CHEW PO SCH ×2 (09:50→23:25)
[2017-01-19] MEDS: NORMAL SALINE 10 ML SDV (SCHEDULED) IV SCH ×2 (09:50→23:24)
[2017-01-19] MEDS: TAMSULOSIN HCL 0.4 MG CAP.SR.24H PO SCH (09:50)
--- NOTE | 2017-01-19 10:57 | PDOC PROGRESS REPORT ---
Subjective Progress Note for:: 01/19/17 Subjective:: Patient denies any complaints. Physical Exam Vital Signs: Temp Pulse Resp BP Pulse Ox 98.4 F 64 22 H 115/65 99 01/19/17 08:16 01/19/17 08:16 01/19/17 08:16 01/19/17 08:16 01/19/17 08:16 Intake & Output 01/18/17 01/19/17 01/20/17 06:59 06:59 06:59 Intake Total 930 800 Balance 930 800 Weight 73.6 kg 73 kg General appearance: PRESENT: no acute distress Eye exam: PRESENT: conjunctiva pink. ABSENT: scleral icterus Mouth exam: PRESENT: moist, tongue midline Neck exam: ABSENT: JVD Respiratory exam: PRESENT: clear to auscultation daxa. ABSENT: rales, rhonchi, wheezes Cardiovascular exam: PRESENT: RRR. ABSENT: diastolic murmur, rubs, systolic murmur GI/Abdominal exam: PRESENT: normal bowel sounds, soft. ABSENT: distended, guarding, mass, organolmegaly, rebound, tenderness Extremities exam: ABSENT: calf tenderness, clubbing, pedal edema Neurological exam: PRESENT: alert, awake, oriented to person. ABSENT: oriented to place, oriented to time, oriented to situation Psychiatric exam: PRESENT: flat affect Skin exam: PRESENT: dry, intact, warm. ABSENT: cyanosis, rash Results Laboratory Results: 01/18/17 08:17 01/18/17 08:17 Impressions: Head CT 12/29/16 10:22 IMPRESSION: Limited study. No acute intracranial changes EVIDENCE OF ACUTE STROKE: NO. Abdomen/Pelvis CT 12/29/16 11:27 IMPRESSION: No acute findings over the chest abdomen or pelvis Cervical Spine CT 12/29/16 11:27 IMPRESSION: Multilevel central and foraminal stenosis. No acute changes. Chest CT 12/29/16 11:27 IMPRESSION: No acute findings over the chest abdomen or pelvis KUB X-Ray 12/30/16 06:00 IMPRESSION: Persistent large amount of stool in the ascending colon. Distended small bowel loops, suspect a functional obstruction due to right- sided colon constipation Chest X-Ray 01/01/17 00:00 IMPRESSION: Persistent left basilar opacity and left effusion. Cardiac enlargement without overt failure. Modified Barium Swallow 01/02/17 00:00 IMPRESSION: TRACE ASPIRATION SEEN WITH THIN AND PUREED CONSISTENCIES.PLEASE SEE SPEECH PATHOLOGIST REPORT FOR OTHER FINDINGS AND RECOMMENDATIONS. Shoulder X-Ray 01/03/17 00:00 IMPRESSION: No acute findings. Chronic right distal clavicular fracture. Guidance Fluoroscopy 01/06/17 00:00 IMPRESSION: SUCCESSFUL PLACEMENT OF A 5 FR DUAL LUMEN 42 CM PICC IN THE LEFT BASILIC VEIN. PICC Line Insertion 01/06/17 04:28 IMPRESSION: SUCCESSFUL PLACEMENT OF A 5 FR DUAL LUMEN 42 CM PICC IN THE LEFT BASILIC VEIN. Interventional Vascular Procedure 01/06/17 04:29 IMPRESSION: SUCCESSFUL PLACEMENT OF A 5 FR DUAL LUMEN 42 CM PICC IN THE LEFT BASILIC VEIN. Assessment & Plan - Diagnosis (1) Endocarditis of prosthetic valve Qualifiers: Encounter type: subsequent encounter Qualified Code(s): T82.6XXD - Infection and inflammatory reaction due to cardiac valve prosthesis, subsequent encounter Is this a current diagnosis for this admission?: Yes Plan: Patient is growing strep anginosis from blood cultures. He has a PICC line in place and will need 6 weeks of IV antibiotics. Patient is on Rocephin. (2) Sepsis Qualifiers: Sepsis type: Streptococcus, unspecified Qualified Code(s): A40.9 - Streptococcal sepsis, unspecified; A40 - Streptococcal sepsis Is this a current diagnosis for this admission?: Yes Plan: Patient has endocarditis and also had pneumonia and cystitis. Sepsis is resolved. (3) Aspiration pneumonia Qualifiers: Aspiration pneumonia type: unspecified Laterality: unspecified laterality Lung location: unspecified part of lung Qualified Code(s): J69.0 - Pneumonitis due to inhalation of food and vomit Is this a current diagnosis for this admission?: Yes (4) Acute cystitis Qualifiers: Hematuria presence: without hematuria Qualified Code(s): N30.00 - Acute cystitis without hematuria Is this a current diagnosis for this admission?: Yes (5) Constipation Qualifiers: Constipation type: unspecified constipation type Qualified Code(s): K59.00 - Constipation, unspecified Is this a current diagnosis for this admission?: Yes (6) Dysphagia Qualifiers: Dysphagia type: unspecified Qualified Code(s): R13.10 - Dysphagia, unspecified Is this a current diagnosis for this admission?: Yes (7) Schizo-affective schizophrenia, chronic condition Is this a current diagnosis for this admission?: Yes Plan: Patient has had episodes of agitation overnight. (8) Acute kidney injury superimposed on chronic kidney disease Is this a current diagnosis for this admission?: Yes Plan: The patient's creatinine has normalized. (9) Acute metabolic encephalopathy Is this a current diagnosis for this admission?: Yes Plan: Patient still confused. Is not clear whether this is related to schizophrenia or whether he is still encephalopathic. (10) Chronic obstructive lung disease Is this a current diagnosis for this admission?: Yes Plan: Continue with nebulizers as needed. (11) Diabetes mellitus type 2 Is this a current diagnosis for this admission?: Yes Plan: Continue with sliding scale insulin. - Time Time Spent with patient: 25-34 minutes - Inpatient Certification Medical Necessity: Need for IV Antibiotics - Plan Summary Plan Summary: Awaiting on a longterm facility bed become available.
[2017-01-19] MEDS ORDERED: INFLUENZA ADLT QUAD (36MOS+) 2017-18 VAC 0.5 ML SYR IM PRN (13:00)
[2017-01-19] MEDS: VALSARTAN 160 MG TABLET PO SCH (19:03)
[2017-01-19] MEDS: CEFTRIAXONE 2 GM/D5W RTU 2 GM/50 ML RTUPB IV SCH (23:24)
[2017-01-20] MEDS: HALOPERIDOL 5 MG TABLET PO SCH ×3 (02:31→17:41)
[2017-01-20] MEDS: OLANZAPINE 5 MG TABLET PO SCH ×3 (07:18→22:13)
[2017-01-20] MEDS: CLONIDINE HCL 0.1 MG TABLET PO SCH ×3 (07:18→22:13)
[2017-01-20] MEDS: POLYETHYLENE GLYCOL 3350 POWDER 17 GM/1 PACKET PO SCH (09:09)
[2017-01-20] MEDS: LAMOTRIGINE 100 MG TABLET PO SCH ×2 (09:09→22:13)
[2017-01-20] MEDS: ASPIRIN 81 MG TABLET, CHEWABLE PO SCH (09:10)
[2017-01-20] MEDS: NORMAL SALINE 10 ML SDV (SCHEDULED) IV SCH ×2 (09:10→22:13)
[2017-01-20] MEDS: TAMSULOSIN HCL 0.4 MG CAP.SR.24H PO SCH (09:10)
[2017-01-20] MEDS: METOPROLOL TARTRATE 25 MG TABLET PO SCH ×2 (09:14→22:13)
[2017-01-20] MEDS: LAMOTRIGINE 25 MG TAB.CHEW PO SCH ×2 (09:15→22:13)
--- NOTE | 2017-01-20 12:15 | PDOC PROGRESS REPORT ---
Subjective Progress Note for:: 01/20/17 Subjective:: Patient denies any complaints. Physical Exam Vital Signs: Temp Pulse Resp BP Pulse Ox 98.1 F 68 22 H 179/86 H 100 01/20/17 07:54 01/20/17 07:54 01/20/17 07:54 01/20/17 07:54 01/20/17 07:54 Intake & Output 01/19/17 01/20/17 01/21/17 06:59 06:59 06:59 Intake Total 800 1020 Balance 800 1020 Weight 73 kg 73.4 kg General appearance: PRESENT: no acute distress Eye exam: PRESENT: conjunctiva pink. ABSENT: scleral icterus Mouth exam: PRESENT: moist, tongue midline Neck exam: ABSENT: JVD Respiratory exam: PRESENT: clear to auscultation daxa. ABSENT: rales, rhonchi, wheezes Cardiovascular exam: PRESENT: RRR. ABSENT: diastolic murmur, rubs, systolic murmur GI/Abdominal exam: PRESENT: normal bowel sounds, soft. ABSENT: distended, guarding, mass, organolmegaly, rebound, tenderness Extremities exam: ABSENT: calf tenderness, clubbing, pedal edema Neurological exam: PRESENT: awake, oriented to person. ABSENT: oriented to place, oriented to time, oriented to situation Psychiatric exam: PRESENT: flat affect Skin exam: PRESENT: dry, intact, warm. ABSENT: cyanosis, rash Results Laboratory Results: 01/18/17 08:17 01/18/17 08:17 Impressions: Head CT 12/29/16 10:22 IMPRESSION: Limited study. No acute intracranial changes EVIDENCE OF ACUTE STROKE: NO. Abdomen/Pelvis CT 12/29/16 11:27 IMPRESSION: No acute findings over the chest abdomen or pelvis Cervical Spine CT 12/29/16 11:27 IMPRESSION: Multilevel central and foraminal stenosis. No acute changes. Chest CT 12/29/16 11:27 IMPRESSION: No acute findings over the chest abdomen or pelvis KUB X-Ray 12/30/16 06:00 IMPRESSION: Persistent large amount of stool in the ascending colon. Distended small bowel loops, suspect a functional obstruction due to right- sided colon constipation Chest X-Ray 01/01/17 00:00 IMPRESSION: Persistent left basilar opacity and left effusion. Cardiac enlargement without overt failure. Modified Barium Swallow 01/02/17 00:00 IMPRESSION: TRACE ASPIRATION SEEN WITH THIN AND PUREED CONSISTENCIES.PLEASE SEE SPEECH PATHOLOGIST REPORT FOR OTHER FINDINGS AND RECOMMENDATIONS. Shoulder X-Ray 01/03/17 00:00 IMPRESSION: No acute findings. Chronic right distal clavicular fracture. Guidance Fluoroscopy 01/06/17 00:00 IMPRESSION: SUCCESSFUL PLACEMENT OF A 5 FR DUAL LUMEN 42 CM PICC IN THE LEFT BASILIC VEIN. PICC Line Insertion 01/06/17 04:28 IMPRESSION: SUCCESSFUL PLACEMENT OF A 5 FR DUAL LUMEN 42 CM PICC IN THE LEFT BASILIC VEIN. Interventional Vascular Procedure 01/06/17 04:29 IMPRESSION: SUCCESSFUL PLACEMENT OF A 5 FR DUAL LUMEN 42 CM PICC IN THE LEFT BASILIC VEIN. Assessment & Plan - Diagnosis (1) Endocarditis of prosthetic valve Qualifiers: Encounter type: subsequent encounter Qualified Code(s): T82.6XXD - Infection and inflammatory reaction due to cardiac valve prosthesis, subsequent encounter Is this a current diagnosis for this admission?: Yes Plan: Patient is growing strep anginosis from blood cultures. He has a PICC line in place and will need 6 weeks of IV antibiotics. Patient is on Rocephin. Last dose will be February 09. (2) Sepsis Qualifiers: Sepsis type: Streptococcus, unspecified Qualified Code(s): A40.9 - Streptococcal sepsis, unspecified; A40 - Streptococcal sepsis Is this a current diagnosis for this admission?: Yes Plan: Patient has endocarditis and also had pneumonia and cystitis. Sepsis is resolved. (3) Aspiration pneumonia Qualifiers: Aspiration pneumonia type: unspecified Laterality: unspecified laterality Lung location: unspecified part of lung Qualified Code(s): J69.0 - Pneumonitis due to inhalation of food and vomit Is this a current diagnosis for this admission?: Yes (4) Acute cystitis Qualifiers: Hematuria presence: without hematuria Qualified Code(s): N30.00 - Acute cystitis without hematuria Is this a current diagnosis for this admission?: Yes (5) Constipation Qualifiers: Constipation type: unspecified constipation type Qualified Code(s): K59.00 - Constipation, unspecified Is this a current diagnosis for this admission?: Yes (6) Dysphagia Qualifiers: Dysphagia type: unspecified Qualified Code(s): R13.10 - Dysphagia, unspecified Is this a current diagnosis for this admission?: Yes (7) Schizo-affective schizophrenia, chronic condition Is this a current diagnosis for this admission?: Yes Plan: Patient has not had any agitation today. (8) Acute kidney injury superimposed on chronic kidney disease Is this a current diagnosis for this admission?: Yes Plan: The patient's creatinine has normalized. (9) Acute metabolic encephalopathy Is this a current diagnosis for this admission?: Yes Plan: Patient still confused. It probably is related to schizophrenia (10) Chronic obstructive lung disease Is this a current diagnosis for this admission?: Yes Plan: Continue with nebulizers as needed. (11) Diabetes mellitus type 2 Is this a current diagnosis for this admission?: Yes Plan: Continue with sliding scale insulin. - Time Time Spent with patient: 15-24 minutes - Inpatient Certification Medical Necessity: Need for IV Antibiotics
[2017-01-20] MEDS: VALSARTAN 160 MG TABLET PO SCH (17:43)
[2017-01-20] MEDS: CEFTRIAXONE 2 GM/D5W RTU 2 GM/50 ML RTUPB IV SCH (23:20)
[2017-01-21] MEDS: HALOPERIDOL 5 MG TABLET PO SCH ×3 (04:48→17:19)
[2017-01-21] MEDS: CLONIDINE HCL 0.1 MG TABLET PO SCH ×3 (06:12→22:18)
[2017-01-21] MEDS: OLANZAPINE 5 MG TABLET PO SCH ×3 (06:12→22:18)
--- NOTE | 2017-01-21 10:15 | PDOC PROGRESS REPORT ---
Subjective Progress Note for:: 01/21/17 Subjective:: Patient denies any complaints. Physical Exam Vital Signs: Temp Pulse Resp BP Pulse Ox 97.7 F 71 18 110/77 100 01/21/17 07:54 01/21/17 07:54 01/21/17 07:54 01/21/17 07:54 01/21/17 07:54 Intake & Output 01/20/17 01/21/17 01/22/17 06:59 06:59 06:59 Intake Total 1020 1100 Balance 1020 1100 Weight 73.4 kg 73.4 kg General appearance: PRESENT: no acute distress Eye exam: PRESENT: conjunctiva pink. ABSENT: scleral icterus Mouth exam: PRESENT: moist, tongue midline Neck exam: ABSENT: JVD Respiratory exam: PRESENT: clear to auscultation daxa. ABSENT: rales, rhonchi, wheezes Cardiovascular exam: PRESENT: RRR. ABSENT: diastolic murmur, rubs, systolic murmur GI/Abdominal exam: PRESENT: normal bowel sounds, soft. ABSENT: distended, guarding, mass, organolmegaly, rebound, tenderness Extremities exam: ABSENT: calf tenderness, clubbing, pedal edema Neurological exam: PRESENT: awake, oriented to person. ABSENT: oriented to place, oriented to time, oriented to situation Psychiatric exam: PRESENT: appropriate affect Skin exam: PRESENT: dry, intact, warm. ABSENT: cyanosis, rash Results Laboratory Results: 01/18/17 08:17 01/18/17 08:17 Impressions: Head CT 12/29/16 10:22 IMPRESSION: Limited study. No acute intracranial changes EVIDENCE OF ACUTE STROKE: NO. Abdomen/Pelvis CT 12/29/16 11:27 IMPRESSION: No acute findings over the chest abdomen or pelvis Cervical Spine CT 12/29/16 11:27 IMPRESSION: Multilevel central and foraminal stenosis. No acute changes. Chest CT 12/29/16 11:27 IMPRESSION: No acute findings over the chest abdomen or pelvis KUB X-Ray 12/30/16 06:00 IMPRESSION: Persistent large amount of stool in the ascending colon. Distended small bowel loops, suspect a functional obstruction due to right- sided colon constipation Chest X-Ray 01/01/17 00:00 IMPRESSION: Persistent left basilar opacity and left effusion. Cardiac enlargement without overt failure. Modified Barium Swallow 01/02/17 00:00 IMPRESSION: TRACE ASPIRATION SEEN WITH THIN AND PUREED CONSISTENCIES.PLEASE SEE SPEECH PATHOLOGIST REPORT FOR OTHER FINDINGS AND RECOMMENDATIONS. Shoulder X-Ray 01/03/17 00:00 IMPRESSION: No acute findings. Chronic right distal clavicular fracture. Guidance Fluoroscopy 01/06/17 00:00 IMPRESSION: SUCCESSFUL PLACEMENT OF A 5 FR DUAL LUMEN 42 CM PICC IN THE LEFT BASILIC VEIN. PICC Line Insertion 01/06/17 04:28 IMPRESSION: SUCCESSFUL PLACEMENT OF A 5 FR DUAL LUMEN 42 CM PICC IN THE LEFT BASILIC VEIN. Interventional Vascular Procedure 01/06/17 04:29 IMPRESSION: SUCCESSFUL PLACEMENT OF A 5 FR DUAL LUMEN 42 CM PICC IN THE LEFT BASILIC VEIN. Assessment & Plan - Diagnosis (1) Endocarditis of prosthetic valve Qualifiers: Encounter type: subsequent encounter Qualified Code(s): T82.6XXD - Infection and inflammatory reaction due to cardiac valve prosthesis, subsequent encounter Is this a current diagnosis for this admission?: Yes Plan: Patient is growing strep anginosis from blood cultures. He has a PICC line in place and will need 6 weeks of IV antibiotics. Patient is on Rocephin. Last dose will be February 09. (2) Sepsis Qualifiers: Sepsis type: Streptococcus, unspecified Qualified Code(s): A40.9 - Streptococcal sepsis, unspecified; A40 - Streptococcal sepsis Is this a current diagnosis for this admission?: Yes Plan: Patient has endocarditis and also had pneumonia and cystitis. Sepsis is resolved. (3) Aspiration pneumonia Qualifiers: Aspiration pneumonia type: unspecified Laterality: unspecified laterality Lung location: unspecified part of lung Qualified Code(s): J69.0 - Pneumonitis due to inhalation of food and vomit Is this a current diagnosis for this admission?: Yes (4) Acute cystitis Qualifiers: Hematuria presence: without hematuria Qualified Code(s): N30.00 - Acute cystitis without hematuria Is this a current diagnosis for this admission?: Yes (5) Constipation Qualifiers: Constipation type: unspecified constipation type Qualified Code(s): K59.00 - Constipation, unspecified Is this a current diagnosis for this admission?: Yes (6) Dysphagia Qualifiers: Dysphagia type: unspecified Qualified Code(s): R13.10 - Dysphagia, unspecified Is this a current diagnosis for this admission?: Yes (7) Schizo-affective schizophrenia, chronic condition Is this a current diagnosis for this admission?: Yes Plan: Patient has not had any agitation today. (8) Acute kidney injury superimposed on chronic kidney disease Is this a current diagnosis for this admission?: Yes Plan: The patient's creatinine has normalized. (9) Acute metabolic encephalopathy Is this a current diagnosis for this admission?: Yes Plan: Patient still confused. It probably is related to schizophrenia (10) Chronic obstructive lung disease Is this a current diagnosis for this admission?: Yes Plan: Continue with nebulizers as needed. (11) Diabetes mellitus type 2 Is this a current diagnosis for this admission?: Yes Plan: Continue with sliding scale insulin. - Time Time Spent with patient: 25-34 minutes - Inpatient Certification Medical Necessity: Need for IV Antibiotics - Plan Summary Plan Summary: Awaiting on skilled nurse facility bed to become available for continued IV antibiotics.
[2017-01-21] MEDS: TAMSULOSIN HCL 0.4 MG CAP.SR.24H PO SCH (10:30)
[2017-01-21] MEDS: ASPIRIN 81 MG TABLET, CHEWABLE PO SCH (10:30)
[2017-01-21] MEDS: METOPROLOL TARTRATE 25 MG TABLET PO SCH ×2 (10:30→22:18)
[2017-01-21] MEDS: LAMOTRIGINE 100 MG TABLET PO SCH ×2 (10:31→22:18)
[2017-01-21] MEDS: NORMAL SALINE 10 ML SDV (SCHEDULED) IV SCH ×2 (10:32→22:18)
[2017-01-21] MEDS: POLYETHYLENE GLYCOL 3350 POWDER 17 GM/1 PACKET PO SCH (10:32)
[2017-01-21] MEDS: LAMOTRIGINE 25 MG TAB.CHEW PO SCH ×2 (10:33→22:18)
[2017-01-21] MEDS: VALSARTAN 160 MG TABLET PO SCH (17:19)
[2017-01-21] MEDS: CEFTRIAXONE 2 GM/D5W RTU 2 GM/50 ML RTUPB IV SCH (22:18)
[2017-01-22] MEDS: HALOPERIDOL 5 MG TABLET PO SCH ×3 (03:39→17:29)
[2017-01-22] MEDS: OLANZAPINE 5 MG TABLET PO SCH ×3 (06:30→22:24)
[2017-01-22] MEDS: CLONIDINE HCL 0.1 MG TABLET PO SCH ×3 (06:30→22:23)
[2017-01-22 07:15] LABS: HEMATOCRIT 27.4 % (37.9-51.0); HEMOGLOBIN 8.9 g/dL (13.5-17.0); HGB HCT DIFFERENCE -0.7; MEAN CORPUSCULAR HEMOGLOBIN 21.7 pg (27.0-33.4); MEAN CORPUSCULAR HGB CONC 32.5 g/dL (32.0-36.0); MEAN CORPUSCULAR VOLUME 67 fl (80-97); WHITE BLOOD COUNT 8.8 10^3/uL (4.0-10.5)
[2017-01-22 07:33] LABS: ANION GAP 10 (5-19); BLOOD UREA NITROGEN 17 mg/dL (7-20); CALCIUM 8.9 mg/dL (8.4-10.2); CARBON DIOXIDE 32 mmol/L (22-30); CHLORIDE 96 mmol/L (98-107); GLUCOSE 141 mg/dL (75-110); POTASSIUM 3.9 mmol/L (3.6-5.0); SODIUM 137.5 mmol/L (137-145)
[2017-01-22 07:57] LABS: BAND NEUTROPHILS % (MANUAL) 2 % (3-5); BASOPHILS % (MANUAL) 1 % (0-2); EOSINOPHILS % (MANUAL) 0 % (0-6); LYMPHOCYTES % (MANUAL) 15 % (13-45); TOTAL CELLS COUNTED 100
[2017-01-22 07:59] LABS: HYPOCHROMASIA 2+
[2017-01-22 08:00] LABS: ANISOCYTOSIS 1+; HELMET CELLS SLIGHT; MICROCYTOSIS 2+; POIKILOCYTOSIS 1+; TARGET CELLS SLIGHT
[2017-01-22] MEDS: NORMAL SALINE 10 ML SDV (SCHEDULED) IV SCH ×2 (09:57→22:16)
[2017-01-22] MEDS: ASPIRIN 81 MG TABLET, CHEWABLE PO SCH (10:03)
[2017-01-22] MEDS: POLYETHYLENE GLYCOL 3350 POWDER 17 GM/1 PACKET PO SCH (10:03)
[2017-01-22] MEDS: METOPROLOL TARTRATE 25 MG TABLET PO SCH ×2 (10:03→22:24)
[2017-01-22] MEDS: TAMSULOSIN HCL 0.4 MG CAP.SR.24H PO SCH (10:03)
[2017-01-22] MEDS: LAMOTRIGINE 100 MG TABLET PO SCH ×2 (10:03→22:24)
[2017-01-22] MEDS: LAMOTRIGINE 25 MG TAB.CHEW PO SCH ×2 (10:05→22:24)
--- NOTE | 2017-01-22 13:11 | PDOC PROGRESS REPORT ---
Subjective Progress Note for:: 01/22/17 Subjective:: Patient denies any complaints. He pulled out his PICC line yesterday. Physical Exam Vital Signs: Temp Pulse Resp BP Pulse Ox 97.6 F 64 17 124/81 100 01/22/17 11:43 01/22/17 11:43 01/22/17 11:43 01/22/17 11:43 01/22/17 11:43 Intake & Output 01/21/17 01/22/17 01/23/17 06:59 06:59 06:59 Intake Total 1100 2270 Balance 1100 2270 Weight 73.4 kg 71.6 kg General appearance: PRESENT: no acute distress Eye exam: PRESENT: conjunctiva pink. ABSENT: scleral icterus Mouth exam: PRESENT: moist, tongue midline Neck exam: ABSENT: JVD Respiratory exam: PRESENT: clear to auscultation daxa. ABSENT: rales, rhonchi, wheezes Cardiovascular exam: PRESENT: RRR. ABSENT: diastolic murmur, rubs, systolic murmur GI/Abdominal exam: PRESENT: normal bowel sounds, soft. ABSENT: distended, guarding, mass, organolmegaly, rebound, tenderness Extremities exam: ABSENT: calf tenderness, clubbing, pedal edema Neurological exam: PRESENT: alert, awake, oriented to person, CN II-XII grossly intact. ABSENT: oriented to place, oriented to time, oriented to situation Psychiatric exam: PRESENT: anxious Skin exam: PRESENT: dry, intact, warm. ABSENT: cyanosis, rash Results Laboratory Results: 01/22/17 07:06 01/22/17 07:06 01/22/17 01/22/17 07:06 07:06 WBC 8.8 RBC 4.10 L Hgb 8.9 L Hct 27.4 L MCV 67 L MCH 21.7 L MCHC 32.5 RDW 15.0 H Plt Count 315 Seg Neutrophils % Not Reportable Lymphocytes % Not Reportable Monocytes % Not Reportable Eosinophils % Not Reportable Basophils % Not Reportable Absolute Neutrophils Not Reportable Absolute Lymphocytes Not Reportable Absolute Monocytes Not Reportable Absolute Eosinophils Not Reportable Absolute Basophils Not Reportable Sodium 137.5 Potassium 3.9 Chloride 96 L Carbon Dioxide 32 H Anion Gap 10 BUN 17 Creatinine 1.20 Est GFR ( Amer) > 60 Est GFR (Non-Af Amer) > 60 Glucose 141 H Calcium 8.9 Impressions: Head CT 12/29/16 10:22 IMPRESSION: Limited study. No acute intracranial changes EVIDENCE OF ACUTE STROKE: NO. Abdomen/Pelvis CT 12/29/16 11:27 IMPRESSION: No acute findings over the chest abdomen or pelvis Cervical Spine CT 12/29/16 11:27 IMPRESSION: Multilevel central and foraminal stenosis. No acute changes. Chest CT 12/29/16 11:27 IMPRESSION: No acute findings over the chest abdomen or pelvis KUB X-Ray 12/30/16 06:00 IMPRESSION: Persistent large amount of stool in the ascending colon. Distended small bowel loops, suspect a functional obstruction due to right- sided colon constipation Chest X-Ray 01/01/17 00:00 IMPRESSION: Persistent left basilar opacity and left effusion. Cardiac enlargement without overt failure. Modified Barium Swallow 01/02/17 00:00 IMPRESSION: TRACE ASPIRATION SEEN WITH THIN AND PUREED CONSISTENCIES.PLEASE SEE SPEECH PATHOLOGIST REPORT FOR OTHER FINDINGS AND RECOMMENDATIONS. Shoulder X-Ray 01/03/17 00:00 IMPRESSION: No acute findings. Chronic right distal clavicular fracture. Guidance Fluoroscopy 01/06/17 00:00 IMPRESSION: SUCCESSFUL PLACEMENT OF A 5 FR DUAL LUMEN 42 CM PICC IN THE LEFT BASILIC VEIN. PICC Line Insertion 01/06/17 04:28 IMPRESSION: SUCCESSFUL PLACEMENT OF A 5 FR DUAL LUMEN 42 CM PICC IN THE LEFT BASILIC VEIN. Interventional Vascular Procedure 01/06/17 04:29 IMPRESSION: SUCCESSFUL PLACEMENT OF A 5 FR DUAL LUMEN 42 CM PICC IN THE LEFT BASILIC VEIN. Assessment & Plan - Diagnosis (1) Endocarditis of prosthetic valve Qualifiers: Encounter type: subsequent encounter Qualified Code(s): T82.6XXD - Infection and inflammatory reaction due to cardiac valve prosthesis, subsequent encounter Is this a current diagnosis for this admission?: Yes Plan: Patient is growing strep anginosis from blood cultures. He has a PICC line in place and will need 6 weeks of IV antibiotics. Patient is on Rocephin. Last dose will be February 09. (2) Sepsis Qualifiers: Sepsis type: Streptococcus, unspecified Qualified Code(s): A40.9 - Streptococcal sepsis, unspecified; A40 - Streptococcal sepsis Is this a current diagnosis for this admission?: Yes Plan: Patient has endocarditis and also had pneumonia and cystitis. Sepsis is resolved. (3) Aspiration pneumonia Qualifiers: Aspiration pneumonia type: unspecified Laterality: unspecified laterality Lung location: unspecified part of lung Qualified Code(s): J69.0 - Pneumonitis due to inhalation of food and vomit Is this a current diagnosis for this admission?: Yes (4) Acute cystitis Qualifiers: Hematuria presence: without hematuria Qualified Code(s): N30.00 - Acute cystitis without hematuria Is this a current diagnosis for this admission?: Yes (5) Constipation Qualifiers: Constipation type: unspecified constipation type Qualified Code(s): K59.00 - Constipation, unspecified Is this a current diagnosis for this admission?: Yes (6) Dysphagia Qualifiers: Dysphagia type: unspecified Qualified Code(s): R13.10 - Dysphagia, unspecified Is this a current diagnosis for this admission?: Yes (7) Schizo-affective schizophrenia, chronic condition Is this a current diagnosis for this admission?: Yes Plan: Stable (8) Acute kidney injury superimposed on chronic kidney disease Is this a current diagnosis for this admission?: Yes Plan: The patient's creatinine has normalized. (9) Acute metabolic encephalopathy Is this a current diagnosis for this admission?: Yes Plan: Patient still confused. It probably is related to schizophrenia (10) Chronic obstructive lung disease Is this a current diagnosis for this admission?: Yes Plan: Continue with nebulizers as needed. (11) Diabetes mellitus type 2 Is this a current diagnosis for this admission?: Yes Plan: Continue with sliding scale insulin. - Time Time Spent with patient: 15-24 minutes - Inpatient Certification Medical Necessity: Need for IV Antibiotics - Plan Summary Plan Summary: Awaiting skilled nurse facility bed to become available.
[2017-01-22] MEDS: NICOTINE 14 MG/24 HR PATCH.TD24 TD PRN (14:36)
[2017-01-22] MEDS: VALSARTAN 160 MG TABLET PO SCH (17:29)
[2017-01-23] MEDS: HALOPERIDOL 5 MG TABLET PO SCH ×3 (04:36→19:10)
[2017-01-23] MEDS: CLONIDINE HCL 0.1 MG TABLET PO SCH ×3 (06:07→22:10)
[2017-01-23] MEDS: OLANZAPINE 5 MG TABLET PO SCH ×3 (06:07→22:10)
[2017-01-23] MEDS: NORMAL SALINE 10 ML SDV (SCHEDULED) IV SCH ×2 (09:21→22:10)
[2017-01-23] MEDS ORDERED: LORAZEPAM INJ 2 MG/1 ML VIAL IV PRN (10:02)
[2017-01-23] MEDS: METOPROLOL TARTRATE 25 MG TABLET PO SCH ×2 (10:16→22:10)
[2017-01-23] MEDS: TAMSULOSIN HCL 0.4 MG CAP.SR.24H PO SCH (10:16)
[2017-01-23] MEDS: ASPIRIN 81 MG TABLET, CHEWABLE PO SCH (10:16)
[2017-01-23] MEDS: LAMOTRIGINE 100 MG TABLET PO SCH ×2 (10:17→22:10)
[2017-01-23] MEDS: POLYETHYLENE GLYCOL 3350 POWDER 17 GM/1 PACKET PO SCH (10:18)
[2017-01-23] MEDS: LAMOTRIGINE 25 MG TAB.CHEW PO SCH ×2 (10:19→22:10)
--- NOTE | 2017-01-23 12:45 | PDOC PROGRESS REPORT ---
Subjective Progress Note for:: 01/23/17 Subjective:: Patient denies any complaints. Physical Exam Vital Signs: Temp Pulse Resp BP Pulse Ox 97.8 F 65 20 144/90 H 99 01/23/17 07:56 01/23/17 07:56 01/23/17 07:56 01/23/17 07:56 01/23/17 07:56 Intake & Output 01/22/17 01/23/17 01/24/17 06:59 06:59 06:59 Intake Total 2270 1169 Balance 2270 1169 Weight 71.6 kg 71.6 kg General appearance: PRESENT: no acute distress Eye exam: PRESENT: conjunctiva pink. ABSENT: scleral icterus Mouth exam: PRESENT: moist, tongue midline Neck exam: ABSENT: JVD Respiratory exam: PRESENT: clear to auscultation daxa. ABSENT: rales, rhonchi, wheezes Cardiovascular exam: PRESENT: RRR. ABSENT: diastolic murmur, rubs, systolic murmur GI/Abdominal exam: PRESENT: normal bowel sounds, soft. ABSENT: distended, guarding, mass, organolmegaly, rebound, tenderness Extremities exam: ABSENT: calf tenderness, clubbing, pedal edema Neurological exam: PRESENT: awake, oriented to person. ABSENT: oriented to place, oriented to time, oriented to situation Psychiatric exam: PRESENT: flat affect Skin exam: PRESENT: dry, intact, warm. ABSENT: cyanosis, rash Results Laboratory Results: 01/22/17 07:06 01/22/17 07:06 Impressions: Head CT 12/29/16 10:22 IMPRESSION: Limited study. No acute intracranial changes EVIDENCE OF ACUTE STROKE: NO. Abdomen/Pelvis CT 12/29/16 11:27 IMPRESSION: No acute findings over the chest abdomen or pelvis Cervical Spine CT 12/29/16 11:27 IMPRESSION: Multilevel central and foraminal stenosis. No acute changes. Chest CT 12/29/16 11:27 IMPRESSION: No acute findings over the chest abdomen or pelvis KUB X-Ray 12/30/16 06:00 IMPRESSION: Persistent large amount of stool in the ascending colon. Distended small bowel loops, suspect a functional obstruction due to right- sided colon constipation Chest X-Ray 01/01/17 00:00 IMPRESSION: Persistent left basilar opacity and left effusion. Cardiac enlargement without overt failure. Modified Barium Swallow 01/02/17 00:00 IMPRESSION: TRACE ASPIRATION SEEN WITH THIN AND PUREED CONSISTENCIES.PLEASE SEE SPEECH PATHOLOGIST REPORT FOR OTHER FINDINGS AND RECOMMENDATIONS. Shoulder X-Ray 01/03/17 00:00 IMPRESSION: No acute findings. Chronic right distal clavicular fracture. Guidance Fluoroscopy 01/06/17 00:00 IMPRESSION: SUCCESSFUL PLACEMENT OF A 5 FR DUAL LUMEN 42 CM PICC IN THE LEFT BASILIC VEIN. PICC Line Insertion 01/06/17 04:28 IMPRESSION: SUCCESSFUL PLACEMENT OF A 5 FR DUAL LUMEN 42 CM PICC IN THE LEFT BASILIC VEIN. Interventional Vascular Procedure 01/06/17 04:29 IMPRESSION: SUCCESSFUL PLACEMENT OF A 5 FR DUAL LUMEN 42 CM PICC IN THE LEFT BASILIC VEIN. Assessment & Plan - Diagnosis (1) Endocarditis of prosthetic valve Qualifiers: Encounter type: subsequent encounter Qualified Code(s): T82.6XXD - Infection and inflammatory reaction due to cardiac valve prosthesis, subsequent encounter Is this a current diagnosis for this admission?: Yes Plan: Patient is growing strep anginosis from blood cultures. He has a PICC line in place and will need 6 weeks of IV antibiotics. Patient is on Rocephin. Last dose will be February 09. (2) Sepsis Qualifiers: Sepsis type: Streptococcus, unspecified Qualified Code(s): A40.9 - Streptococcal sepsis, unspecified; A40 - Streptococcal sepsis Is this a current diagnosis for this admission?: Yes Plan: Patient has endocarditis and also had pneumonia and cystitis. Sepsis is resolved. (3) Aspiration pneumonia Qualifiers: Aspiration pneumonia type: unspecified Laterality: unspecified laterality Lung location: unspecified part of lung Qualified Code(s): J69.0 - Pneumonitis due to inhalation of food and vomit Is this a current diagnosis for this admission?: Yes (4) Acute cystitis Qualifiers: Hematuria presence: without hematuria Qualified Code(s): N30.00 - Acute cystitis without hematuria Is this a current diagnosis for this admission?: Yes (5) Constipation Qualifiers: Constipation type: unspecified constipation type Qualified Code(s): K59.00 - Constipation, unspecified Is this a current diagnosis for this admission?: Yes (6) Dysphagia Qualifiers: Dysphagia type: unspecified Qualified Code(s): R13.10 - Dysphagia, unspecified Is this a current diagnosis for this admission?: Yes (7) Schizo-affective schizophrenia, chronic condition Is this a current diagnosis for this admission?: Yes Plan: Stable (8) Acute kidney injury superimposed on chronic kidney disease Is this a current diagnosis for this admission?: Yes Plan: The patient's creatinine has normalized. (9) Acute metabolic encephalopathy Is this a current diagnosis for this admission?: Yes Plan: Patient still confused. It probably is related to schizophrenia (10) Chronic obstructive lung disease Is this a current diagnosis for this admission?: Yes Plan: Continue with nebulizers as needed. (11) Diabetes mellitus type 2 Is this a current diagnosis for this admission?: Yes Plan: Continue with sliding scale insulin. - Time Time Spent with patient: 15-24 minutes - Inpatient Certification Medical Necessity: Need for IV Antibiotics - Plan Summary Plan Summary: Awaiting a longterm facility bed to become available.
--- NOTE | 2017-01-23 15:24 | RADIOLOGY REPORT (SQ) ---
EXAM DESCRIPTION: PICC INSERTION; FLUORO/CV PLACEMENT; U/S GUIDE FOR VASCULAR ACCESS COMPLETED DATE/TIME: 01/23/2017 3:15 pm REASON FOR STUDY: equipment [employer] antibiotics; IV ABX A40.9 STREPTOCOCCAL SEPSIS, UNSPECIFIED Endocarditis COMPARISON: 01/06/2017 FLUOROSCOPY TIME: TOTAL FLUORO TIME 23 SECONDS 1 minutes fluoroscopic image and 1 ultrasound images saved to PACS. TECHNIQUE: Fluoroscopic and ultrasound guided PICC placement. LIMITATIONS: None. PROCEDURE: After written consent and assessment were obtained, the patient was brought into the fluo roscopy room and place supine on the table. Ultrasound was used on the patient's left arm for PICC a ccess. The left arm was prepped and draped in a sterile fashion along with the ultrasound probe. The entry site was anesthetized with 4 mL 1% lidocaine. A 21 gauge 7 cm needle was advanced through the s kin and into the left basilic vein under live ultrasound guidance. An ultrasound image was saved to PACS confirming access site. A .018 guide wire was then inserted through the needle and into the yessenia ous system. The needle was the removed and an 11 blade scalpel was used to make a 1cm skin incision. A 5 fr peel-away sheath was advanced over the wire and into the venous system. A measurement was the n made using the existing wire and live fluoroscopic guidance. The wire was then removed and the trim med. The PICC was advanced through the peel-away sheath and into the venous system. The peel-away she ath was removed and the catheter was adhered to the patients arm with a stat lock. The catheter was t hen aspirated and flushed and a sterile bandage was placed over the access site. A fluoroscopic spot image was saved to PACS confirming the catheter tip within the superior vena cava. IMPRESSION: SUCCESSFUL PLACEMENT OF A 5 FR DUAL LUMEN 39 CM PICC IN THE LEFT BASILIC VEIN. COMMENT: Patient medication list reviewed: Yes- Quality ID# [id number]:Eligible professional attests to doc umenting in the medical record they obtained, updated, or reviewed the patient's current medications. . Quality ID 145: Final reports for procedures using fluoroscopy that document radiation exposure morena aminta, or exposure time and number of fluorographic images (if radiation exposure indices are not avail able) Quality ID #76: The patient was prepped and draped using maximum sterile barrier technique including cap, mask, sterile gown, sterile gloves, a large sterile sheet, hand hygiene, and 2% Chlorhexidine fo r cutaneous antisepsis. When ultrasound is used, sterile ultrasound techniques are followed requiring sterile gel and sterile probes. TECHNICAL DOCUMENTATION: JOB ID: [id number] [employer]- All Rights Reserved
[2017-01-23] MEDS ORDERED: NORMAL SALINE 10 ML SDV (AFTER EACH USE) IV PRN (17:57)
[2017-01-23] MEDS: VALSARTAN 160 MG TABLET PO SCH (19:10)
[2017-01-24] MEDS: HALOPERIDOL 5 MG TABLET PO SCH ×3 (02:00→19:21)
[2017-01-24] MEDS: CLONIDINE HCL 0.1 MG TABLET PO SCH ×3 (05:43→23:05)
[2017-01-24] MEDS: OLANZAPINE 5 MG TABLET PO SCH ×3 (05:43→23:05)
[2017-01-24] MEDS: ASPIRIN 81 MG TABLET, CHEWABLE PO SCH (09:47)
[2017-01-24] MEDS: LAMOTRIGINE 100 MG TABLET PO SCH ×2 (09:47→23:05)
[2017-01-24] MEDS: LAMOTRIGINE 25 MG TAB.CHEW PO SCH ×2 (09:47→23:05)
[2017-01-24] MEDS: METOPROLOL TARTRATE 25 MG TABLET PO SCH ×2 (09:48→23:05)
[2017-01-24] MEDS: TAMSULOSIN HCL 0.4 MG CAP.SR.24H PO SCH (09:48)
[2017-01-24] MEDS: POLYETHYLENE GLYCOL 3350 POWDER 17 GM/1 PACKET PO SCH (09:52)
[2017-01-24] MEDS: NORMAL SALINE 10 ML SDV (SCHEDULED) IV SCH ×2 (09:52→23:05)
[2017-01-24] MEDS: ACETAMINOPHEN 325 MG TABLET PO PRN (09:53)
--- NOTE | 2017-01-24 10:08 | PDOC PROGRESS REPORT ---
Subjective Progress Note for:: 01/24/17 Subjective:: Patient without any restlessness at this time. Apparently the patient had pulled out his PICC line. He has not had any bed offers for continued IV antibiotics. No reported diarrhea, nausea or vomiting, chills nor fever. Patient at times uncooperative and will not take his medications. On 15 mg of Zyprexa at home q. 8hr. Physical Exam Vital Signs: Temp Pulse Resp BP Pulse Ox 97.7 F 88 20 165/97 H 99 01/24/17 05:51 01/24/17 05:51 01/24/17 05:51 01/24/17 05:51 01/23/17 07:56 Intake & Output 01/23/17 01/24/17 01/25/17 06:59 06:59 06:59 Intake Total 1169 485 Balance 1169 485 Weight 71.6 kg 71.6 kg General appearance: PRESENT: no acute distress, cooperative Head exam: PRESENT: normocephalic Eye exam: PRESENT: EOMI Mouth exam: PRESENT: moist, neck supple Neck exam: ABSENT: JVD Respiratory exam: PRESENT: clear to auscultation daxa Cardiovascular exam: PRESENT: RRR GI/Abdominal exam: PRESENT: soft. ABSENT: distended Extremities exam: ABSENT: pedal edema Neurological exam: PRESENT: alert, awake Skin exam: ABSENT: cyanosis Results Laboratory Results: 01/22/17 07:06 01/22/17 07:06 Impressions: Head CT 12/29/16 10:22 IMPRESSION: Limited study. No acute intracranial changes EVIDENCE OF ACUTE STROKE: NO. Abdomen/Pelvis CT 12/29/16 11:27 IMPRESSION: No acute findings over the chest abdomen or pelvis Cervical Spine CT 12/29/16 11:27 IMPRESSION: Multilevel central and foraminal stenosis. No acute changes. Chest CT 12/29/16 11:27 IMPRESSION: No acute findings over the chest abdomen or pelvis KUB X-Ray 12/30/16 06:00 IMPRESSION: Persistent large amount of stool in the ascending colon. Distended small bowel loops, suspect a functional obstruction due to right- sided colon constipation Chest X-Ray 01/01/17 00:00 IMPRESSION: Persistent left basilar opacity and left effusion. Cardiac enlargement without overt failure. Modified Barium Swallow 01/02/17 00:00 IMPRESSION: TRACE ASPIRATION SEEN WITH THIN AND PUREED CONSISTENCIES.PLEASE SEE SPEECH PATHOLOGIST REPORT FOR OTHER FINDINGS AND RECOMMENDATIONS. Shoulder X-Ray 01/03/17 00:00 IMPRESSION: No acute findings. Chronic right distal clavicular fracture. Guidance Fluoroscopy 01/23/17 00:00 IMPRESSION: SUCCESSFUL PLACEMENT OF A 5 FR DUAL LUMEN 39 CM PICC IN THE LEFT BASILIC VEIN. Interventional Vascular Procedure 01/23/17 00:00 IMPRESSION: SUCCESSFUL PLACEMENT OF A 5 FR DUAL LUMEN 39 CM PICC IN THE LEFT BASILIC VEIN. PICC Line Insertion 01/23/17 00:00 IMPRESSION: SUCCESSFUL PLACEMENT OF A 5 FR DUAL LUMEN 39 CM PICC IN THE LEFT BASILIC VEIN. Assessment & Plan - Diagnosis (1) Acute metabolic encephalopathy Is this a current diagnosis for this admission?: Yes (2) Sepsis Qualifiers: Sepsis type: Streptococcus, unspecified Qualified Code(s): A40.9 - Streptococcal sepsis, unspecified; A40 - Streptococcal sepsis Is this a current diagnosis for this admission?: Yes (3) Endocarditis of prosthetic valve Qualifiers: Encounter type: subsequent encounter Qualified Code(s): T82.6XXD - Infection and inflammatory reaction due to cardiac valve prosthesis, subsequent encounter Is this a current diagnosis for this admission?: Yes (4) Acute kidney injury superimposed on chronic kidney disease Is this a current diagnosis for this admission?: Yes (5) Acute cystitis Qualifiers: Hematuria presence: without hematuria Qualified Code(s): N30.00 - Acute cystitis without hematuria Is this a current diagnosis for this admission?: Yes (6) Aspiration pneumonia Qualifiers: Aspiration pneumonia type: unspecified Laterality: unspecified laterality Lung location: unspecified part of lung Qualified Code(s): J69.0 - Pneumonitis due to inhalation of food and vomit Is this a current diagnosis for this admission?: Yes (7) Constipation Qualifiers: Constipation type: unspecified constipation type Qualified Code(s): K59.00 - Constipation, unspecified Is this a current diagnosis for this admission?: Yes (8) Dysphagia Qualifiers: Dysphagia type: unspecified Qualified Code(s): R13.10 - Dysphagia, unspecified Is this a current diagnosis for this admission?: Yes (9) Schizo-affective schizophrenia, chronic condition Is this a current diagnosis for this admission?: Yes (10) Chronic obstructive lung disease Is this a current diagnosis for this admission?: Yes (11) Diabetes mellitus type 2 Is this a current diagnosis for this admission?: Yes - Time Time Spent with patient: 25-34 minutes - Plan Summary Plan Summary: We will increase the patient's Zyprexa and hold the Ativan. Continue supportive care. The new IV antibiotics. Await placement.
[2017-01-24] MEDS: VALSARTAN 160 MG TABLET PO SCH (19:21)
[2017-01-25] MEDS: HALOPERIDOL 5 MG TABLET PO SCH ×3 (04:41→17:29)
[2017-01-25] MEDS: OLANZAPINE 5 MG TABLET PO SCH ×3 (05:00→22:36)
[2017-01-25] MEDS: CLONIDINE HCL 0.1 MG TABLET PO SCH ×3 (05:00→22:36)
[2017-01-25] MEDS: POLYETHYLENE GLYCOL 3350 POWDER 17 GM/1 PACKET PO SCH (09:45)
[2017-01-25] MEDS: ASPIRIN 81 MG TABLET, CHEWABLE PO SCH (09:46)
[2017-01-25] MEDS: NORMAL SALINE 10 ML SDV (SCHEDULED) IV SCH ×2 (09:46→22:36)
[2017-01-25] MEDS: LAMOTRIGINE 100 MG TABLET PO SCH ×2 (09:46→22:36)
[2017-01-25] MEDS: METOPROLOL TARTRATE 25 MG TABLET PO SCH ×2 (09:47→22:36)
[2017-01-25] MEDS: TAMSULOSIN HCL 0.4 MG CAP.SR.24H PO SCH (09:47)
[2017-01-25] MEDS: LAMOTRIGINE 25 MG TAB.CHEW PO SCH ×2 (09:48→22:36)
--- NOTE | 2017-01-25 10:22 | PDOC PROGRESS REPORT ---
Subjective Progress Note for:: 01/25/17 Subjective:: Comfortable without any agitation. Patient has episodes of uncooperativeness intermittently which is likely his baseline. Otherwise no respiratory distress , temperature spikes, nor diarrhea. Physical Exam Vital Signs: Temp Pulse Resp BP Pulse Ox 98.2 F 66 18 125/76 100 01/25/17 08:00 01/25/17 08:00 01/25/17 08:00 01/25/17 08:00 01/25/17 08:00 Intake & Output 01/24/17 01/25/17 01/26/17 06:59 06:59 06:59 Intake Total 485 440 Balance 485 440 Weight 71.6 kg 72 kg General appearance: PRESENT: no acute distress, other - Resting comfortably Results Laboratory Results: 01/22/17 07:06 01/22/17 07:06 Impressions: Head CT 12/29/16 10:22 IMPRESSION: Limited study. No acute intracranial changes EVIDENCE OF ACUTE STROKE: NO. Abdomen/Pelvis CT 12/29/16 11:27 IMPRESSION: No acute findings over the chest abdomen or pelvis Cervical Spine CT 12/29/16 11:27 IMPRESSION: Multilevel central and foraminal stenosis. No acute changes. Chest CT 12/29/16 11:27 IMPRESSION: No acute findings over the chest abdomen or pelvis KUB X-Ray 12/30/16 06:00 IMPRESSION: Persistent large amount of stool in the ascending colon. Distended small bowel loops, suspect a functional obstruction due to right- sided colon constipation Chest X-Ray 01/01/17 00:00 IMPRESSION: Persistent left basilar opacity and left effusion. Cardiac enlargement without overt failure. Modified Barium Swallow 01/02/17 00:00 IMPRESSION: TRACE ASPIRATION SEEN WITH THIN AND PUREED CONSISTENCIES.PLEASE SEE SPEECH PATHOLOGIST REPORT FOR OTHER FINDINGS AND RECOMMENDATIONS. Shoulder X-Ray 01/03/17 00:00 IMPRESSION: No acute findings. Chronic right distal clavicular fracture. Guidance Fluoroscopy 01/23/17 00:00 IMPRESSION: SUCCESSFUL PLACEMENT OF A 5 FR DUAL LUMEN 39 CM PICC IN THE LEFT BASILIC VEIN. Interventional Vascular Procedure 01/23/17 00:00 IMPRESSION: SUCCESSFUL PLACEMENT OF A 5 FR DUAL LUMEN 39 CM PICC IN THE LEFT BASILIC VEIN. PICC Line Insertion 01/23/17 00:00 IMPRESSION: SUCCESSFUL PLACEMENT OF A 5 FR DUAL LUMEN 39 CM PICC IN THE LEFT BASILIC VEIN. Assessment & Plan - Diagnosis (1) Acute metabolic encephalopathy Is this a current diagnosis for this admission?: Yes (2) Sepsis Qualifiers: Sepsis type: Streptococcus, unspecified Qualified Code(s): A40.9 - Streptococcal sepsis, unspecified; A40 - Streptococcal sepsis Is this a current diagnosis for this admission?: Yes (3) Endocarditis of prosthetic valve Qualifiers: Encounter type: subsequent encounter Qualified Code(s): T82.6XXD - Infection and inflammatory reaction due to cardiac valve prosthesis, subsequent encounter Is this a current diagnosis for this admission?: Yes (4) Acute kidney injury superimposed on chronic kidney disease Is this a current diagnosis for this admission?: Yes (5) Acute cystitis Qualifiers: Hematuria presence: without hematuria Qualified Code(s): N30.00 - Acute cystitis without hematuria Is this a current diagnosis for this admission?: Yes (6) Aspiration pneumonia Qualifiers: Aspiration pneumonia type: unspecified Laterality: unspecified laterality Lung location: unspecified part of lung Qualified Code(s): J69.0 - Pneumonitis due to inhalation of food and vomit Is this a current diagnosis for this admission?: Yes (7) Constipation Qualifiers: Constipation type: unspecified constipation type Qualified Code(s): K59.00 - Constipation, unspecified Is this a current diagnosis for this admission?: Yes (8) Dysphagia Qualifiers: Dysphagia type: unspecified Qualified Code(s): R13.10 - Dysphagia, unspecified Is this a current diagnosis for this admission?: Yes (9) Schizo-affective schizophrenia, chronic condition Is this a current diagnosis for this admission?: Yes (10) Chronic obstructive lung disease Is this a current diagnosis for this admission?: Yes (11) Diabetes mellitus type 2 Is this a current diagnosis for this admission?: Yes - Time Time Spent with patient: Less than 15 minutes - Plan Summary Plan Summary: Continue current antibiotics. Continue current medications. The supportive care and awaiting bed in a subacute facility setting.
[2017-01-25] MEDS ORDERED: LORAZEPAM INJ 2 MG/1 ML VIAL ONE (12:07)
[2017-01-25] MEDS: VALSARTAN 160 MG TABLET PO SCH (17:29)
[2017-01-26] MEDS: HALOPERIDOL 5 MG TABLET PO SCH ×3 (05:05→17:33)
[2017-01-26] MEDS: OLANZAPINE 5 MG TABLET PO SCH ×2 (06:28→14:53)
[2017-01-26] MEDS: CLONIDINE HCL 0.1 MG TABLET PO SCH ×2 (06:28→14:52)
[2017-01-26] MEDS: METOPROLOL TARTRATE 25 MG TABLET PO SCH (11:18)
[2017-01-26] MEDS: POLYETHYLENE GLYCOL 3350 POWDER 17 GM/1 PACKET PO SCH (11:18)
[2017-01-26] MEDS: ASPIRIN 81 MG TABLET, CHEWABLE PO SCH (11:19)
[2017-01-26] MEDS: LAMOTRIGINE 100 MG TABLET PO SCH (11:20)
[2017-01-26] MEDS: TAMSULOSIN HCL 0.4 MG CAP.SR.24H PO SCH (11:20)
[2017-01-26] MEDS: LAMOTRIGINE 25 MG TAB.CHEW PO SCH (11:21)
[2017-01-26] MEDS: NORMAL SALINE 10 ML SDV (SCHEDULED) IV SCH (11:24)
--- NOTE | 2017-01-26 12:47 | PDOC DISCHARGE SUMMARY ---
General - Admit/Disc Date/PCP Admission Date/Primary Care Provider: 12/30/16 10:16 CHARLENE ANDERSON MD Discharge Date: 01/26/17 - Discharge Diagnosis (1) Acute metabolic encephalopathy Is this a current diagnosis for this admission?: Yes (2) Sepsis Is this a current diagnosis for this admission?: Yes (3) Endocarditis of prosthetic valve Is this a current diagnosis for this admission?: Yes (4) Acute kidney injury superimposed on chronic kidney disease Is this a current diagnosis for this admission?: Yes (5) Acute cystitis Is this a current diagnosis for this admission?: Yes (6) Aspiration pneumonia Is this a current diagnosis for this admission?: Yes (7) Constipation Is this a current diagnosis for this admission?: Yes (8) Dysphagia Is this a current diagnosis for this admission?: Yes (9) Schizo-affective schizophrenia, chronic condition Is this a current diagnosis for this admission?: Yes (10) Chronic obstructive lung disease Is this a current diagnosis for this admission?: Yes (11) Diabetes mellitus type 2 Is this a current diagnosis for this admission?: Yes - Additional Information Resuscitation Status: Full Code Discharge Diet: Diabetic - No concentrated sweets Discharge Activity: Activity As Tolerated, Balance Activity w/Rest Home Medications: Acetaminophen [Tylenol] 325 mg PO Q4HP PRN 12/29/16 Aspirin [Aspirin 81 mg Chewable Tablet] 81 mg PO DAILY 12/29/16 Cholecalciferol (Vitamin D3) [Vitamin D3 1000 Unit Tablet] 1,000 unit PO DAILY 12/29/16 Clonidine HCl [Catapres 0.3 mg Tablet] 0.3 mg PO Q8 12/29/16 Docusate Sodium [Colace 100 mg Capsule] 100 mg PO DAILY 12/29/16 Lamotrigine [Lamictal] 25 mg PO Q12 12/29/16 Lamotrigine [Lamictal] 150 mg PO Q12 12/29/16 Multivitamin [One-A-Day Essential] 1 each PO DAILY 12/29/16 Olanzapine [Zyprexa] 15 mg PO Q8 12/29/16 Polyethylene Glycol 3350 [Miralax Powder 17 gm/Packet] 1 packet PO DAILY Tamsulosin HCl [Flomax 0.4 mg Cap.sr] 0.4 mg PO DAILY 12/29/16 Valsartan [Diovan 160 mg Tablet] 160 mg PO QPM 12/29/16 Benztropine Mesylate [Cogentin 1 mg Tablet] 1 mg PO Q8 #30 tablet 01/26/17 Ceftriaxone 2 gm/D5w RTU [Rocephin RTU 2 gm/D5w 50 ml Premix Bag] 2 gm IV DAILY 36 Days rtupb 01/26/17 Haloperidol [Haldol 5 mg Tablet] 5 mg PO Q8 #30 tablet 01/26/17 Metoprolol Tartrate [Lopressor 25 mg Tablet] 50 mg PO Q12 tablet 01/26/17 Sennosides/Docusate 8.6-50 mg [Senna Plus Tablet] 2 each PO QHS tablet Additional Information: Transesophageal echocardiogram to be done after completion of IV antibiotics. Follow-up with primary care physician in 2 weeks. PICC line care as per facility protocol. Discontinue PICC line after IV antibiotics completed. Follow -up w/ infectious disease at [facility](Dr. Ham) after completion of IV antibiotics. Rocephin 2gm IV daily for 36 days. History of Present Illness Patient complains of: Completion of IV antibiotics History of Present Illness: CRISTIAN HMA is a 71 year old male Patient returns to [facility] for ongoing IV antibiotics after receiving a JOHN at [facility]. 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 I spoke with Dr. Ham about this patient, and he reports there is no need to replace the valve at this time, and he will need to have a repeat JOHN in approximately 6 -8 weeks. Patient was earlier admitted at [facility] for pneumonia found to be bacteremic and therefore initially transferred to [facility] for transesophageal echocardiogram and return back to [facility] after completion of procedure. Hospital Course Hospital Course: The patient was admitted to the medical floor. The patient was originally admitted for encephalopathy, pneumonia, found to be bacteremic and transferred to [place] at [facility] for transesophageal echocardiogram. Patient was found to have vegetations and therefore infectious disease service recommended 8 weeks of IV antibiotics but no need for replacement of the valve. The patient was returned back to [facility] for continued IV antibiotic infusion. During readmission, patient will have bouts of agitation and sometimes restlessness and therefore he was placed on his usual medications for his mental condition and his behavior has improved. His course was also noted for constipation requiring stool softeners, laxatives, and enema. Otherwise he was continued on intravenous antibiotic to complete for a total of 8 weeks and he completed 20 days at the facility. workforce planner was consulted. PICC line was placed. Subacute facility was then consulted for prolonged IV antibiotic infusion. The patient waited for approval from the state to go to a facility. The rest of the hospital it stay was unremarkable. Physical Exam Vital Signs: Temp Pulse Resp BP Pulse Ox 97.9 F 71 16 139/83 H 99 01/26/17 12:17 01/26/17 12:17 01/26/17 12:17 01/26/17 12:17 01/26/17 12:17 Intake & Output 01/25/17 01/26/17 01/27/17 06:59 06:59 06:59 Intake Total 440 636 Balance 440 636 Weight 72 kg 72 kg General appearance: PRESENT: no acute distress, cooperative Head exam: PRESENT: normocephalic Eye exam: PRESENT: EOMI Mouth exam: PRESENT: moist, neck supple Neck exam: ABSENT: JVD Respiratory exam: PRESENT: clear to auscultation daxa Cardiovascular exam: PRESENT: RRR GI/Abdominal exam: PRESENT: normal bowel sounds, soft. ABSENT: distended Extremities exam: ABSENT: pedal edema Neurological exam: PRESENT: alert, awake Psychiatric exam: ABSENT: agitated Focused psych exam: ABSENT: restlessness Skin exam: PRESENT: dry, warm. ABSENT: cyanosis Results Laboratory Results: 01/22/17 07:06 01/22/17 07:06 Impressions: Head CT 12/29/16 10:22 IMPRESSION: Limited study. No acute intracranial changes EVIDENCE OF ACUTE STROKE: NO. Abdomen/Pelvis CT 12/29/16 11:27 IMPRESSION: No acute findings over the chest abdomen or pelvis Cervical Spine CT 12/29/16 11:27 IMPRESSION: Multilevel central and foraminal stenosis. No acute changes. Chest CT 12/29/16 11:27 IMPRESSION: No acute findings over the chest abdomen or pelvis KUB X-Ray 12/30/16 06:00 IMPRESSION: Persistent large amount of stool in the ascending colon. Distended small bowel loops, suspect a functional obstruction due to right- sided colon constipation Chest X-Ray 01/01/17 00:00 IMPRESSION: Persistent left basilar opacity and left effusion. Cardiac enlargement without overt failure. Modified Barium Swallow 01/02/17 00:00 IMPRESSION: TRACE ASPIRATION SEEN WITH THIN AND PUREED CONSISTENCIES.PLEASE SEE SPEECH PATHOLOGIST REPORT FOR OTHER FINDINGS AND RECOMMENDATIONS. Shoulder X-Ray 01/03/17 00:00 IMPRESSION: No acute findings. Chronic right distal clavicular fracture. Guidance Fluoroscopy 01/23/17 00:00 IMPRESSION: SUCCESSFUL PLACEMENT OF A 5 FR DUAL LUMEN 39 CM PICC IN THE LEFT BASILIC VEIN. Interventional Vascular Procedure 01/23/17 00:00 IMPRESSION: SUCCESSFUL PLACEMENT OF A 5 FR DUAL LUMEN 39 CM PICC IN THE LEFT BASILIC VEIN. PICC Line Insertion 01/23/17 00:00 IMPRESSION: SUCCESSFUL PLACEMENT OF A 5 FR DUAL LUMEN 39 CM PICC IN THE LEFT BASILIC VEIN. Qualifiers PATEINT BEING DISCHARGED WITH ANY OF THE FOLLOWING DIAGNOSIS?: No Plan Discharge Plan: The patient will follow up with primary care physician in 1-2 weeks. The patient will follow up with infectious disease service at [facility] after completion of IV antibiotics. Time Spent: Less than 30 Minutes
[2017-01-26 15:46] VITALS: BP 139/83
[2017-01-26] MEDS: VALSARTAN 160 MG TABLET PO SCH (17:33)
[2017-01-26] MEDS ORDERED: CEFTRIAXONE 2 GM/D5W RTU 2 GM/50 ML RTUPB IV SCH (18:00)
== END 2017-01-26 20:10 | DRG 871 ==
LOC: ER 09:53 → EH 16:36 → UNDOADMOB 17:33 → EH 17:33 → 4N 20:08 → OBSVTOIN 12-30 10:16 → 4S 01-04 18:30
PROC: 02HV33Z Insertion of Infusion Device into Superior Vena Cava, Percutaneous Approach (ICD-10-PCS; principal; 2017-01-04)
PROC: B518ZZA Fluoroscopy of Superior Vena Cava, Guidance (ICD-10-PCS; 2017-01-04)
PROC: B548ZZA Ultrasonography of Superior Vena Cava, Guidance (ICD-10-PCS; 2017-01-04)
PROC: 02HV33Z Insertion of Infusion Device into Superior Vena Cava, Percutaneous Approach (ICD-10-PCS; 2017-01-23)
PROC: B518ZZA Fluoroscopy of Superior Vena Cava, Guidance (ICD-10-PCS; 2017-01-23)
PROC: B548ZZA Ultrasonography of Superior Vena Cava, Guidance (ICD-10-PCS; 2017-01-23)
DX: A40.9 Streptococcal sepsis, unspecified (principal); G93.41 Metabolic encephalopathy; J69.0 Pneumonitis due to inhalation of food and vomit; N17.9 Acute kidney failure, unspecified; N30.00 Acute cystitis without hematuria; J68.0 Bronchitis and pneumonitis due to chemicals, gases, fumes and vapors; Z78.1 Physical restraint status; I12.9 Hypertensive chronic kidney disease with stage 1 through stage 4 chronic kidney disease, or unspecified chronic kidney disease; N18.9 Chronic kidney disease, unspecified; R13.10 Dysphagia, unspecified; F25.9 Schizoaffective disorder, unspecified; J44.9 Chronic obstructive pulmonary disease, unspecified; E11.22 Type 2 diabetes mellitus with diabetic chronic kidney disease; N40.0 Benign prostatic hyperplasia without lower urinary tract symptoms; K59.04 Chronic idiopathic constipation; F41.9 Anxiety disorder, unspecified; S42.031A Displaced fracture of lateral end of right clavicle, initial encounter for closed fracture; F17.210 Nicotine dependence, cigarettes, uncomplicated; T82.6XXD Infection and inflammatory reaction due to cardiac valve prosthesis, subsequent encounter; K21.9 Gastro-esophageal reflux disease without esophagitis; F60.9 Personality disorder, unspecified; D64.9 Anemia, unspecified; F32.9 Major depressive disorder, single episode, unspecified; S00.31XA Abrasion of nose, initial encounter; F03.90 Unspecified dementia, unspecified severity, without behavioral disturbance, psychotic disturbance, mood disturbance, and anxiety; Y92.038 Other place in apartment as the place of occurrence of the external cause; Z79.899 Other long term (current) drug therapy; Z79.82 Long term (current) use of aspirin
CPT/HCPCS: 36415; 36569; 51701; 51702; 70450; 71010; 71260; 72125; 74000; 74177; 74230; 76937; 77001; 80048; 80053; 80202; 81001; 82550; 82553; 82565; 82803; 82962; 83605; 83735; 84100; 84484; 85025; 85027; 87040; 87077; 87086; 87088; 87186; 93005; 93010; 93306; 94640; 94667; 94668; 96365; 99285; G0378; G8978-GP; G8979-GP; G8980-GP; G8987-GO; G8988-GO; G8989-GO; J0692; J0696; J1170; J1630; J1642; J2060; J2405; J2543; J2920; J3370; J3480; J3490; J7030; J7060; J7620

== ENCOUNTER 2017-04-05 01:23 | Emergency (ER) | payer MEDICARE, MEDICAID ==
--- NOTE | 2017-04-05 01:50 | ER Document Report ---
ED General - General Chief Complaint: Shortness Of Breath Stated Complaint: CHEST PAIN, DIFFICULTY BREATHING Time Seen by Provider: 04/05/17 01:38 Notes: Patient is a 72-year-old male presents with complaint of onset of shortness of breath. Is brought in by the paramedics. Patient is not a good historian. When asking questions he does not really answer them appropriately. When I asked him if he has pain he says "all over. When asked when this started is not able to really tell me. He does have some distress on initial examination. Further history is difficult to obtain due to the patient having what appears to be some form of altered mental status, which initially is unknown if this is baseline or new. TRAVEL OUTSIDE OF THE [place] IN LAST 30 DAYS: No - Related Data Allergies/Adverse Reactions: No Known Allergies Allergy (Verified 12/29/16 18:45) Past Medical History - Social History Smoking Status: Former Smoker Frequency of alcohol use: None Drug Abuse: None Family History: None - unknown, Other - unable to obtain - Past Medical History Cardiac Medical History: Reports: Hx Hypercholesterolemia, Hx Hypertension Comment Only: Hx Atrial Fibrillation - IRREGULAR HEARTBEAT Pulmonary Medical History: Reports: Hx COPD Denies: Hx Tuberculosis - unknown Endocrine Medical History: Reports: Hx Diabetes Mellitus Type 1, Hx Diabetes Mellitus Type 2 Renal/ Medical History: Reports: Hx Benign Prostatic Hyperplasia. Denies: Hx Peritoneal Dialysis GI Medical History: Reports: Hx Gastroesophageal Reflux Disease Psychiatric Medical History: Reports: Hx Anxiety, Hx Depression, Hx Personality Disorder - Dependent personality disorder, Hx Schizoaffective Disorder, Hx Schizophrenia - SCHIZOEFFECTIVE Past Surgical History: Reports: Hx Cardiac Surgery - OPEN HEART - Immunizations Immunizations up to date: Yes Hx Diphtheria, Pertussis, Tetanus Vaccination: Yes Hx Pneumococcal Vaccination: 07/25/12 Review of Systems - Review of Systems -: Yes ROS unobtainable due to patient's medical condition - Patient does not answer questions appropriately. Physical Exam - Vital signs Vitals: Resp Pulse Ox 43 H 84 L 04/05/17 01:33 04/05/17 01:33 - Notes Notes: General Appearance: Well nourished, alert, cooperative, moderate acute distress , no obvious discomfort. Vitals: reviewed, See vital signs table. Head: no swelling or tenderness to the head Eyes: PERRL, EOMI, Conjuctiva clear Mouth: No decreasd moisture Throat: No tonsillar inflammation, No airway obstruction, No lymphadenopathy Neck: Supple, no neck tenderness, Lungs: Diffuse rales and wheezing. Heart: Normal rate, Regular rythm, No murmur, no rub Abdomen: Normal BS, soft, No rigidity, No abdominal tenderness, No guarding, no rebound, no abdominal masses, no organomegaly Extremities: strength 5/5 in all extremities, good pulses in all extremities, no swelling or tenderness in the extremities, no edema. Skin: warm, dry, appropriate color, no rash Neuro: speech clear, oriented x 1, not respond appropriately to most questions. He is oriented to self but not place or time. Patient is able move all 4 extremities without difficulty. Facial movements are symmetric. Course - Re-evaluation Re-evalutation: 04/05/17 01:50 Patient's EKG shows broad-based ST segment depression in the lateral inferior leads. There is no ST segment elevation at this time. Does not fit criteria for acute KS. I suspect that he does have some demand ischemia related to his hypoxemia. He was 81% one found by paramedics at home. At time of EKG his oxygen saturations were still in the 80s with the 5 L nasal cannula. BiPAP has now been placed on him and his oxygen saturations are improving. 04/05/17 03:32 Patient's troponin did come back elevated. Repeat EKG. Patient continues to not have ST segment elevation and still has some ST segment depression but is slightly improved in comparison to his previous EKG. He does have pulmonary edema. These findings are all consistent with most likely him having a KS. Will place him on Lovenox for a an STEMI; however, when we to have a CT scan of his head to make sure there is no bleeding being the patient's metal status is not 100% coherent is not exactly answering all my questions appropriately. Also no family at bedside to give me further information in regards to his typical mental status. The last admission for him was here in January and at that time it altered mental status due to sepsis and therefore is hard for me to base what his baseline mental status is off the previous H&P and discharge summary. 04/05/17 03:39 Spoke with the hospitalist who is cared for Mr. Mesa in the past. She knows very well and knows his family very well. Mr. Mesa does have a history of schizophrenia and is unable to really make clear decisions on his own. She says his baseline mental status is typical of what I am seeing. I am still obtain a CT scan of his head make sure there is no evidence of bleeding before I give him Lovenox for what appears to be a NSTEMI. Hospitalist tells me that his brother Jesse helps make most of decisions for him. I did call his brother , . Jesse Mesa, and discussed his condition with him. He is agreeable to having transfer the patient to [place] with the patient's been treated many times for other heart related issues including his history of endocarditis. 04/05/17 04:28 CT is negative. Lovenox has been ordered. I did inform patient of the transfer. I did speak with his brother Jesse who helps makes decisions for him. He agrees with the transfer. Patient's cardiac care has been done at [facility]. I therefore did call [facility]. I did speak with Gavino at cardiac connections at [facility]. He has accepted the patient on behalf of Dr. Gerardo. Patient will be monitored until transferred. Patient denies any pain at this time. Dictation of this chart was performed using voice recognition software; therefore, there may be some unintended grammatical errors. 04/05/17 04:35 - Vital Signs Vital signs: Temp Pulse Resp BP Pulse Ox 98.9 F 101 H 31 H 137/87 H 95 04/05/17 02:12 04/05/17 02:12 04/05/17 04:30 04/05/17 04:30 04/05/17 04:30 - Laboratory Result Diagrams: 04/05/17 01:50 04/05/17 01:50 Laboratory results interpreted by me: 04/05/17 04/05/17 04/05/17 01:35 01:50 01:50 WBC 11.2 H Hgb 9.8 L Hct 32.0 L MCV 71 L MCH 21.8 L MCHC 30.5 L RDW 20.3 H Seg Neutrophils % 89.4 H Lymphocytes % 6.0 L Absolute Neutrophils 10.0 H VBG pH VBG HCO3 BUN 25 H Glucose 151 H POC Glucose 155 H Alkaline Phosphatase 162 H NT-Pro-B Natriuret Pep 04/05/17 04/05/17 01:50 01:50 WBC Hgb Hct MCV MCH MCHC RDW Seg Neutrophils % Lymphocytes % Absolute Neutrophils VBG pH 7.29 L VBG HCO3 18.3 L BUN Glucose POC Glucose Alkaline Phosphatase NT-Pro-B Natriuret Pep 69382 H - EKG Interpretation by Me Additional EKG results interpreted by me: 04/05/17 01:49 EKG is reviewed and interpreted by me. EKG shows sinus tachycardia with rate of [address] segment elevation however he does have broad-based ST segment depression in the lateral and inferior leads. OH interval, QRS duration are within normal range. QTc interval is prolonged. Old EKG for comparison is from December 29, 2016. 04/05/17 03:16 KG #2 is reviewed and interpreted by me. EKG shows still some ST segment depression in the lateral and inferior leads but is improving comparison to the original EKG. Still no ST segment elevation. OH interval slightly prolonged. QRS duration is within normal range. QTc interval is prolonged. Discharge - Discharge Clinical Impression: NSTEMI (non-ST elevated myocardial infarction) Pulmonary edema Qualifiers: Chronicity: acute Qualified Code(s): J81.0 - Acute pulmonary edema Condition: Stable Disposition: [facility] Referrals: CHARLENE ANDERSON MD [Primary Care Provider] - Follow up as needed
[2017-04-05] MEDS ORDERED: IPRATROPIUM/ALBUTEROL 0.5-2.5 MG/3 ML AMPUL NEB ONE (02:21)
[2017-04-05] MEDS ORDERED: METHYLPREDNISOLONE INJ 125 MG/2 ML SDV IV ONE (02:21)
[2017-04-05 02:23] LABS: ABSOLUTE LYMPHOCYTES (AUTO) 0.7 10^3/uL (0.5-4.7); ABSOLUTE MONOCYTES (AUTO) 0.5 10^3/uL (0.1-1.4); BASOPHILS % (AUTO) 0.3 % (0-2); EOSINOPHILS % (AUTO) 0.1 % (0-6); HEMOGLOBIN 9.8 g/dL (13.5-17.0); HGB HCT DIFFERENCE -2.6; MEAN CORPUSCULAR HEMOGLOBIN 21.8 pg (27.0-33.4); MEAN CORPUSCULAR HGB CONC 30.5 g/dL (32.0-36.0); MEAN CORPUSCULAR VOLUME 71 fl (80-97); MONOCYTES % (AUTO) 4.2 % (3-13); RED BLOOD COUNT 4.48 10^6/uL (4.35-5.55); RED CELL DISTRIBUTION WIDTH 20.3 % (11.5-14.0); SEGMENTED NEUTROPHILS % (AUTO) 89.4 % (42-78); WHITE BLOOD COUNT 11.2 10^3/uL (4.0-10.5)
[2017-04-05 02:25] LABS: ALANINE AMINOTRANSFERASE 35 U/L (21-72); ALKALINE PHOSPHATASE 162 U/L (38-126); ANION GAP 19 (5-19); ASPARTATE AMINO TRANSFERASE 44 U/L (17-59); BILIRUBIN,DIRECT 0.4 mg/dL (0.0-0.4); BILIRUBIN,TOTAL 0.5 mg/dL (0.2-1.3); BLOOD UREA NITROGEN 25 mg/dL (7-20); CALCIUM 9.1 mg/dL (8.4-10.2); CARBON DIOXIDE 22 mmol/L (22-30); CHLORIDE 103 mmol/L (98-107); CREATININE RESULT 1.18 mg/dL (0.52-1.25); GLUCOSE 151 mg/dL (75-110); POTASSIUM 4.5 mmol/L (3.6-5.0); SODIUM 143.9 mmol/L (137-145)
[2017-04-05] MEDS: MAGNESIUM SULFATE/D5W 1 GM/100 ML RTUPB IV SCH ×2 (02:34→04:02)
[2017-04-05 02:40] LABS: TROPONIN I 1.07 ng/mL
[2017-04-05 02:48] LABS: VENOUS BLOOD BASE EXCESS -7.6 mmol/L; VENOUS BLOOD HCO3 18.3 mmol/L (20-32); VENOUS BLOOD PH 7.29 (7.30-7.42)
--- NOTE | 2017-04-05 02:49 | RADIOLOGY REPORT (SQ) ---
EXAM DESCRIPTION: CHEST SINGLE VIEW CLINICAL HISTORY: dyspnea COMPARISON: 01/01/2017 FINDINGS: Single frontal view of the chest. Cardia megaly. Pulmonary vascular congestion with interstitial edema and bilateral alveolar opacities. Likely small left pleural effusion. Prior median sternotomy. Leads overlie the chest. Upper abdominal soft tissues are unremarkable. IMPRESSION: 1. Cardiomegaly with likely pulmonary edema and small left pleural effusion.
[2017-04-05] MEDS ORDERED: NITROGLYCERIN 2% OINTMENT 1 GM PACKET TP ONE (03:27)
[2017-04-05] MEDS ORDERED: ENOXAPARIN SODIUM INJ 80 MG/0.8 ML DISP.SYRIN SUBCUT SCH ×3 (03:30→18:00)
[2017-04-05] MEDS ORDERED: FUROSEMIDE INJ/PF 20 MG/2 ML SDV IV ONE (03:41)
--- NOTE | 2017-04-05 04:15 | RADIOLOGY REPORT (SQ) ---
EXAM DESCRIPTION: CT HEAD WITHOUT CLINICAL HISTORY: altered mental status COMPARISON: 12/29/2016 TECHNIQUE: Axial CT of the head obtained from the skull apex to the skull base without contrast. FINDINGS: No acute intracranial hemorrhage identified. No mass, mass effect, shift of the midline, abnormal extra-axial fluid collection or CT evidence of acute ischemic change identified. The ventricular system and sulcal spaces are mildly enlarged compatible with mild cerebral atrophy. Scattered areas of hypodensity throughout the supratentorial white matter are nonspecific and may be related to chronic small vessel ischemic change. The visualized paranasal sinuses and the mastoid air cells are clear. No skull fracture identified. Visualized orbits and globes are unremarkable. Atherosclerotic calcification of the intracranial internal carotid arteries. Unchanged left scalp lipoma. DLP: 1194.43 mGy-cm IMPRESSION: 1. No acute intracranial abnormality by CT criteria. This exam was performed according to our departmental dose-optimization program, which includes automated exposure control, adjustment of the mA and/or kV according to patient size and/or use of iterative reconstruction technique.
[2017-04-05] MEDS ORDERED: ENOXAPARIN SODIUM INJ 80 MG/0.8 ML DISP.SYRIN SUBCUT ONE (04:45)
[2017-04-05 09:36] VITALS: BP 137/92
--- NOTE | 2017-04-05 09:48 | ER Document Report ---
Doctor's Note Notes: 04/05/17 09:46 Transport is here for the patient. His pulse is 113, blood pressure 137/92. He is alert and communicating. He is stable for transport. He has told the transport person he does not want to go to [place], however he does have schizophrenia and some dementia. By history the POA who is a brother discussed this case earlier and authorized the patient to go to [facility] for management of his non-STEMI. The report I got earlier is that if the patient does become unruly that benzos and antipsychotics do not help, but low-dose Dilaudid dose. This information was passed on to the transport crew, they only have fentanyl, so they are advised to try the low-dose fentanyl if needed.
--- NOTE | 2017-04-06 08:00 | EKG REPORT ---
SEVERITY:- ABNORMAL ECG - SINUS RHYTHM FIRST DEGREE AV BLOCK PROBABLE LEFT VENTRICULAR HYPERTROPHY ANTERIOR Q WAVES, POSSIBLY DUE TO LVH ST DEPRESSION, CONSIDER ISCHEMIA, LAT LEADS PROLONGED QT INTERVAL : Confirmed by: Radha Hou MD 06-Apr-2017 08:00:08
--- NOTE | 2017-04-06 08:00 | EKG REPORT ---
SEVERITY:- ABNORMAL ECG - SINUS TACHYCARDIA PROBABLE LVH WITH SECONDARY REPOL ABNRM ANTERIOR Q WAVES, POSSIBLY DUE TO LVH PROLONGED QT INTERVAL : Confirmed by: Radha Hou MD 06-Apr-2017 08:00:29
--- NOTE | 2017-04-06 08:00 | EKG REPORT ---
SEVERITY:- ABNORMAL ECG - SINUS TACHYCARDIA FIRST DEGREE AV BLOCK BIATRIAL ABNORMALITIES LVH WITH SECONDARY REPOLARIZATION ABNORMALITY ANTERIOR Q WAVES, POSSIBLY DUE TO LVH PROLONGED QT INTERVAL : Confirmed by: Radha Hou MD 06-Apr-2017 08:00:02
--- NOTE | 2017-04-06 08:00 | EKG REPORT ---
SEVERITY:- ABNORMAL ECG - JUNCTIONAL TACHYCARDIA ANTERIOR INFARCT, AGE INDETERMINATE PROLONGED QT INTERVAL : Confirmed by: Radha Hou MD 06-Apr-2017 07:59:56
== END 2017-04-05 10:05 | disposition short-term general hospital (02) ==
LOC: ER 01:23
DX: I21.4 Non-ST elevation (NSTEMI) myocardial infarction (principal); J81.0 Acute pulmonary edema; R06.02 Shortness of breath; I10 Essential (primary) hypertension; J44.9 Chronic obstructive pulmonary disease, unspecified; E11.9 Type 2 diabetes mellitus without complications; F20.9 Schizophrenia, unspecified; Z87.891 Personal history of nicotine dependence
CPT/HCPCS: 93005 ×2; 94640; 99285; 96372; 96375; 96365; 96366; 36415; 82962; 85025; 85610; 80053; 84484; 82803; 83880; 71010; 70450; 93010 ×2; 94660; A9270 ×2; J1940; J2930; J3475; J1650; J7620